=== PATIENT | male | born 1960 | race Caucasian/White ===

== ENCOUNTER → 2016-08-30 | Outpatient (CLI) | payer SELFPAY ==
[~2016-08-30] MED LIST: AMLO5TAB2; AMOX1TAB63 PO; GLIM2TAB PO; HCTZ12.5T PO; HYDR-1231 PO; HYDR-707 PO; HYDR1TAB PO; HYDR1TAB66 PO; LISI10TA PO; MTF500T PO; NAPR-243 PO; SMV20T PO; TRM50T PO
[2016-08-30 06:31] LABS: MEAN PLATELET VOLUME 9.7 FL (7.4-10.4); RED BLOOD COUNT 4.31 10^6/uL (4.35-5.85); RED CELL DISTRIBUTION WIDTH 13.9 % (10.0-14.5); WHITE BLOOD COUNT 6.4 10^3/uL (4.3-11.0)
[2016-08-30 06:55] LABS: ALANINE AMINOTRANSFERASE 66 U/L (0-55); ALBUMIN 4.6 GM/DL (3.2-4.5); ANION GAP 14 MMOL/L (5-14); ASPARTATE AMINO TRANSFERASE 49 U/L (5-34); BILIRUBIN,TOTAL 0.6 MG/DL (0.1-1.0); BLOOD UREA NITROGEN 19 MG/DL (7-18); BUN/CREATININE RATIO 17; CALCIUM 9.3 MG/DL (8.5-10.1); CARBON DIOXIDE 21 MMOL/L (21-32); CHLORIDE 104 MMOL/L (98-107); CHOLESTEROL 271 MG/DL (< 200); CREATININE SERUM 1.13 MG/DL (0.60-1.30); DIRECT LDL 107 MG/DL (1-129); GFR ESTIMATED > 60; GLUCOSE 220 MG/DL (70-105); POTASSIUM 4.2 MMOL/L (3.6-5.0); SODIUM 139 MMOL/L (135-145); TOTAL PROTEIN 7.7 GM/DL (6.4-8.2); TRIGLYCERIDES 522 MG/DL (<150); VLDL CHOLESTEROL 104 MG/DL (5-40)
[2016-08-30 13:53] LABS: BILIRUBIN,URINE NEGATIVE (NEGATIVE); KETONES,URINE NEGATIVE (NEGATIVE); LEUKOCYTE ESTERASE ,URINE 1+ (NEGATIVE); NITRITE,URINE NEGATIVE (NEGATIVE); PH,URINE 5 (5-9); PROTEIN,URINE 4+ (NEGATIVE); UROBILINOGEN,URINE NORMAL (NORMAL)
[2016-08-30 14:00] LABS: SQUAMOUS EPITHELIAL CELL,UR RARE /HPF
== END ==
LOC: LAB 06:06
PROVIDERS: ATTEND Family Medicine
DX: E11.9 Type 2 diabetes mellitus without complications (principal)
CPT/HCPCS: 36415; 80053; 80061; 81000; 83036; 85027

== ENCOUNTER → 2016-09-05 | Outpatient (CLI) | payer SELFPAY ==
[2016-09-05 06:52] LABS: ALBUMIN 4.7 GM/DL (3.2-4.5); BILIRUBIN,DIRECT 0.2 MG/DL (0.0-0.3); BILIRUBIN,INDIRECT 0.3 MG/DL; BILIRUBIN,TOTAL 0.5 MG/DL (0.1-1.0); TOTAL PROTEIN 7.8 GM/DL (6.4-8.2)
== END ==
LOC: LAB 06:02
PROVIDERS: ATTEND Family Medicine
DX: R74.8 Abnormal levels of other serum enzymes (principal)
CPT/HCPCS: 36415; 80076

== ENCOUNTER → 2017-07-04 | Outpatient (CLI) | payer SELFPAY | LOC: LAB 06:25 | PROVIDERS: ATTEND Family Medicine | DX: E11.9 Type 2 diabetes mellitus without complications (principal) | CPT/HCPCS: 36415; 83036 ==

== ENCOUNTER 2017-10-29 19:46 | Emergency (ER) | payer SELFPAY ==
[~2017-10-29] VITALS: Ht 172.7 cm; Wt 81.6 kg
[2017-10-29 20:47] LABS: BASOPHILS % (AUTO) 1 % (0-10); EOSINOPHILS # (AUTO) 0.2 10^3/uL (0.0-0.3); EOSINOPHILS % (AUTO) 3 % (0-10); HEMATOCRIT 33 % (40-54); LYMPHOCYTES % (AUTO) 31 % (12-44); MEAN CORPUSCULAR HEMOGLOBIN 31 PG (25-34); MEAN CORPUSCULAR HGB CONC 36 G/DL (32-36); MEAN CORPUSCULAR VOLUME 85 FL (80-99); MEAN PLATELET VOLUME 9.6 FL (7.4-10.4); MONOCYTES # (AUTO) 0.6 X 10^3 (0.0-1.0); MONOCYTES % (AUTO) 9 % (0-12); NEUTROPHILS # (AUTO) 3.7 X 10^3 (1.8-7.8); NEUTROPHILS % (AUTO) 57 % (42-75); PLATELET COUNT 187 10^3/uL (130-400); RED BLOOD COUNT 3.91 10^6/uL (4.35-5.85); RED CELL DISTRIBUTION WIDTH 13.8 % (10.0-14.5); WHITE BLOOD COUNT 6.5 10^3/uL (4.3-11.0)
[2017-10-29 21:05] LABS: ALANINE AMINOTRANSFERASE 62 U/L (0-55); ALBUMIN 4.7 GM/DL (3.2-4.5); ALKALINE PHOSPHATASE 104 U/L (40-136); BILIRUBIN,TOTAL 0.2 MG/DL (0.1-1.0); BUN/CREATININE RATIO 14; CALCIUM 9.4 MG/DL (8.5-10.1); CARBON DIOXIDE 20 MMOL/L (21-32); CHLORIDE 105 MMOL/L (98-107); CREATININE SERUM 1.07 MG/DL (0.60-1.30); GFR ESTIMATED > 60; GLUCOSE 258 MG/DL (70-105); POTASSIUM 4.4 MMOL/L (3.6-5.0); SODIUM 138 MMOL/L (135-145); TOTAL PROTEIN 7.6 GM/DL (6.4-8.2)
--- NOTE | 2017-10-29 21:06 | ED Integumentary General ---
General Chief Complaint: Skin/Wound Problems Stated Complaint: HAS PACEMAKER, AREA HURT,RED AND HURTS Nursing Triage Note: pt states last two weeks pacemaker site red/swelling. states pain worsening. History of Present Illness Date Seen by Provider: Oct 29, 2017 Time Seen by Provider: 20:05 Initial Comments The patient is a 57-year-old male who presents to the emergency room with complaints of redness and swelling to his pacemaker on his left chest wall for the past 2 weeks. He states that there pain and redness has gotten worse over the past few days. He also reports that he's had the pacemaker in place for 20 years and has this from time to time and requires an antibiotic due to infection of the skin. He reports that 2 weeks ago he slept wrong and slept with a lot of pressure on his pacemaker. Denies any dizziness, lightheadedness, irregular heartbeats, or chest pain. His primary care provider is Dr. Yap. Timing/Duration: other Location: torso (left chest wall) Associated Symptoms: other (erythema to) Allergies and Home Medications Allergies Coded Allergies: Aspirin (Verified Allergy, Unknown, 12/15/05) ibuprofen (Verified Allergy, Unknown, 12/15/05) morphine (Verified Allergy, Unknown, 12/15/05) Home Medications Cephalexin 500 Mg Capsule, 500 MG PO BID Prescribed by: LM PRICE on 10/29/17 2111 Hydrocodone Bit/Acetaminophen 1 Tab Tablet, 1 TAB PO Q6H PRN for PAIN Prescribed by: VALERY HEARD on 04/06/13 1501 Lisinopril 10 Mg Tablet, 10 MG PO DAILY, (Reported) Metformin Hcl 500 Mg Tablet, 1,000 MG PO BID WITH MEALS, (Reported) Simvastatin 20 Mg Tab, 20 MG PO HS, (Reported) Patient Home Medication List Home Medication List Reviewed: Yes Review of Systems Review of Systems Constitutional: see HPI; No chills, No fever Skin: see HPI, change in color (redness to skin on left chest wall) Past Qxrwtez-Fqxnmv-Gofqhn Hx Past Med/Social Hx: Reviewed Nursing Past Med/Soc Hx Patient Social History Alcohol Use: Denies Use Recreational Drug Use: No Smoking Status: Never a Smoker 2nd Hand Smoke Exposure: No Recent Foreign Travel: No Contact w/Someone Who Travel: No Recent Infectious Disease Expo: No Recent Hopitalizations: Yes Physical Abuse: No Sexual Abuse: No Mistreated: No Fear: No Immunizations Up To Date Date of Pneumonia Vaccine: Apr 06, 2010 Date of Influenza Vaccine: Mar 11, 2013 Past Medical History Surgeries: Yes (HERNIA) Respiratory: No Cardiac: Yes (PACEMAKER) Neurological: Yes Reproductive Disorders: No Kidney Stones Gastrointestinal: Yes Endocrine: Yes Diabetes, Non-Insulin dep Psychosocial: No Blood Disorders: Yes Family Medical History Reviewed Nursing Family Hx Physical Exam Vital Signs Vital Signs - First Documented 10/29/17 20:05 Temp 98.4 Pulse 96 Resp 16 B/P (MAP) 149/96 (113) Pulse Ox 98 O2 Delivery Room Air Capillary Refill : Greater Than 3 Seconds General Appearance: WD/WN, no apparent distress Neck: non-tender, full range of motion, supple, normal inspection Cardiovascular: normal peripheral pulses, regular rate, rhythm, no edema, no gallop, no JVD, no murmur Respiratory: chest non-tender, lungs clear, normal breath sounds, no respiratory distress, no accessory muscle use Neurologic/Psychiatric: alert, normal mood/affect, oriented x 3 Skin Problem Character: erythema (erythema and tenderness to the skin around the pacemaker incision on his left upper chest wall.) Progress/Results/Core Measures Results/Orders Lab Results Laboratory Tests Test 10/29/17 20:20 Range/Units White Blood Count 6.5 4.3-11.0 10^3/uL Red Blood Count 3.91 L 4.35-5.85 10^6/uL Hemoglobin 12.0 L 13.3-17.7 G/DL Hematocrit 33 L 40-54 % Mean Corpuscular Volume 85 80-99 FL Mean Corpuscular Hemoglobin 31 25-34 PG Mean Corpuscular Hemoglobin Concent 36 32-36 G/DL Red Cell Distribution Width 13.8 10.0-14.5 % Platelet Count 187 130-400 10^3/uL Mean Platelet Volume 9.6 7.4-10.4 FL Neutrophils (%) (Auto) 57 42-75 % Lymphocytes (%) (Auto) 31 12-44 % Monocytes (%) (Auto) 9 0-12 % Eosinophils (%) (Auto) 3 0-10 % Basophils (%) (Auto) 1 0-10 % Neutrophils # (Auto) 3.7 1.8-7.8 X 10^3 Lymphocytes # (Auto) 2.0 1.0-4.0 X 10^3 Monocytes # (Auto) 0.6 0.0-1.0 X 10^3 Eosinophils # (Auto) 0.2 0.0-0.3 10^3/uL Basophils # (Auto) 0.0 0.0-0.1 10^3/uL Sodium Level 138 135-145 MMOL/L Potassium Level 4.4 3.6-5.0 MMOL/L Chloride Level 105 98-107 MMOL/L Carbon Dioxide Level 20 L 21-32 MMOL/L Anion Gap 13 5-14 MMOL/L Blood Urea Nitrogen 15 7-18 MG/DL Creatinine 1.07 0.60-1.30 MG/DL Estimat Glomerular Filtration Rate > 60 BUN/Creatinine Ratio 14 Glucose Level 258 H 70-105 MG/DL Calcium Level 9.4 8.5-10.1 MG/DL Corrected Calcium 8.5-10.1 MG/DL Total Bilirubin 0.2 0.1-1.0 MG/DL Aspartate Amino Transf (AST/SGOT) 40 H 5-34 U/L Alanine Aminotransferase (ALT/SGPT) 62 H 0-55 U/L Alkaline Phosphatase 104 40-136 U/L Total Protein 7.6 6.4-8.2 GM/DL Albumin 4.7 H 3.2-4.5 GM/DL My Orders Orders - LM PRICE Cbc With Automated Diff (10/29/17 20:11) Comprehensive Metabolic Panel (10/29/17 20:11) Cephalexin Capsule (Keflex Capsule) (10/29/17 21:15) Medications Given in ED Current Medications Medications Dose Ordered Sig/Melo Route Start Time Stop Time Status Last Admin Dose Admin Cephalexin HCl 500 mg ONCE ONCE PO 10/29/17 21:15 10/29/17 21:16 DC 10/29/17 21:24 500 MG Vital Signs/I&O 10/29/17 20:05 Temp 98.4 Pulse 96 Resp 16 B/P (MAP) 149/96 (113) Pulse Ox 98 O2 Delivery Room Air Blood Pressure Mean: 113 Progress Progress Note : Time: 21:00 Progress Note I have seen and evaluated the patient. I have informed him of normal laboratory findings. Given his normal white blood cell count I believe his infection is localized at this time. I will be sending home with a prescription for outpatient antibiotics and close follow-up with Dr. Das. He agrees with plan of care, return precautions were given. Departure Impression Primary Impression: Cellulitis Disposition: 01 HOME, SELF-CARE Condition: Stable/Unchanged Departure-Patient Inst. Decision time for Depature: 21:09 Referrals: VERA DAS DO (PCP/Family) Primary Care Physician Patient Instructions: Cellulitis (Skin Infection), Adult (DC) Add. Discharge Instructions: Take medication as directed. Follow-up with Dr. Das within 1 week for recheck. Return back to the emergency room for any worsening symptoms or concerns as needed. All discharge instructions reviewed with patient and/or family. Voiced understanding. Scripts Cephalexin (Keflex) 500 Mg Capsule 500 MG PO BID for 10 Days, #20 CAP Prov: LM PRICE 10/29/17 LM PRICE Oct 29, 2017 21:05
[2017-10-29] MEDS ORDERED: CEPH-507 PO (21:11)
[2017-10-29] MEDS ORDERED: CEPHALEXIN 250 MG (KEFLEX) CAP PO ONE (21:15)
[2017-10-29 21:35] VITALS: BP 149/96
== END 2017-10-29 21:38 | disposition home or self-care (01) ==
LOC: EDUNIT# 19:46 → ER 19:49
DX: L03.313 Cellulitis of chest wall (principal); E11.9 Type 2 diabetes mellitus without complications; Z88.6 Allergy status to analgesic agent; Z68.39 Body mass index [BMI] 39.0-39.9, adult; Z88.5 Allergy status to narcotic agent; Z79.84 Long term (current) use of oral hypoglycemic drugs; Z95.0 Presence of cardiac pacemaker; Z98.890 Other specified postprocedural states; Z87.442 Personal history of urinary calculi
CPT/HCPCS: 36415; 80053; 85025; 99282

== ENCOUNTER 2017-12-11 21:11 | Emergency (ER) | payer SELFPAY ==
[~2017-12-11] VITALS: Ht 170.2 cm; Wt 80.8 kg
[~2017-12-11 21:11] MED LIST changes: +CEPH-507 PO
[2017-12-11] MEDS ORDERED: GLIM2TAB PO (22:07)
--- NOTE | 2017-12-11 22:24 | ED Integumentary General ---
General Chief Complaint: Skin/Wound Problems Stated Complaint: PACE MAKER REMOVAL/WOUND VAC ALARM GOING OFF Nursing Triage Note: pt states he had a pacemaker removed because of infection, has a wound vac and is having trouble with the wound vac Source: patient Exam Limitations: no limitations History of Present Illness Date Seen by Provider: Dec 11, 2017 Time Seen by Provider: 22:00 Initial Comments The patient is a 57 year old male who presents to the emergency room with complaints of his wound vac alarming that there is a blockage. It is continuing to maintain suction and is not alarming on arrival to the emergency room. He has the wound vac due to infection of a pacmaker site. He has an appointment with wound care tomorrow morning. Denies pain. Timing/Duration: just prior to arrival Allergies and Home Medications Allergies Coded Allergies: Aspirin (Verified Allergy, Unknown, 12/15/05) ibuprofen (Verified Allergy, Unknown, 12/15/05) morphine (Verified Allergy, Unknown, 12/15/05) Home Medications Hydrocodone Bit/Acetaminophen 1 Tab Tablet, 1 TAB PO Q6H PRN for PAIN Prescribed by: VALERY HEARD on 04/06/13 1501 Lisinopril 10 Mg Tablet, 10 MG PO DAILY, (Reported) Metformin Hcl 500 Mg Tablet, 1,000 MG PO BID WITH MEALS, (Reported) Simvastatin 20 Mg Tab, 20 MG PO HS, (Reported) Patient Home Medication List Home Medication List Reviewed: Yes Review of Systems Review of Systems Constitutional: see HPI; No chills, No fever Skin: see HPI, other (left chest wall wound ) All Other Systems Reviewed Negative Unless Noted: Yes Past Uhwxlqc-Mhmkyg-Fprjah Hx Past Med/Social Hx: Reviewed Nursing Past Med/Soc Hx Patient Social History Alcohol Use: Denies Use Recreational Drug Use: No Smoking Status: Never a Smoker 2nd Hand Smoke Exposure: No Recent Foreign Travel: No Contact w/Someone Who Travel: No Recent Infectious Disease Expo: No Recent Hopitalizations: Yes Immunizations Up To Date Date of Pneumonia Vaccine: Apr 06, 2010 Date of Influenza Vaccine: Mar 11, 2013 Past Medical History Surgeries: Yes (HERNIA) Respiratory: No Cardiac: Yes (PACEMAKER) Neurological: Yes Reproductive Disorders: No Kidney Stones Gastrointestinal: Yes Endocrine: Yes Diabetes, Non-Insulin dep Psychosocial: No Blood Disorders: Yes Family Medical History Reviewed Nursing Family Hx Physical Exam Vital Signs Vital Signs - First Documented 12/11/17 12/11/17 21:51 22:35 Temp 98.0 Pulse 90 Resp 16 B/P (MAP) 128/77 (94) Pulse Ox 98 O2 Delivery Room Air Capillary Refill : Less Than 3 Seconds General Appearance: WD/WN, no apparent distress Cardiovascular: normal peripheral pulses, regular rate, rhythm, no edema, no gallop, no JVD, no murmur Respiratory: chest non-tender, lungs clear, normal breath sounds, no respiratory distress, no accessory muscle use Skin: normal color, warm/dry Skin Problem Location: torso (left chest wall) Skin Problem Character: other (wound vac is maintaining suctioning. ) Progress/Results/Core Measures Results/Orders Vital Signs/I&O 12/11/17 12/11/17 21:51 22:35 Temp 98.0 98.6 Pulse 90 77 Resp 16 20 B/P (MAP) 128/77 (94) 132/81 (98) Pulse Ox 98 O2 Delivery Room Air Blood Pressure Mean: 94 Departure Impression Primary Impression: Encounter for management of wound VAC Disposition: 01 HOME, SELF-CARE Condition: Stable/Unchanged Departure-Patient Inst. Decision time for Depature: 22:23 Referrals: VERA DAS DO (PCP) Primary Care Physician Patient Instructions: Surgical Wound (DC) Add. Discharge Instructions: Continue your home medications as previously prescribed. Keep your appointment tomorrow morning for management of wound VAC. Return back to the emergency room for any worsening symptoms or concerns as needed. All discharge instructions reviewed with patient and/or family. Voiced understanding. LM PRICE Dec 11, 2017 22:23
[2017-12-11 22:35] VITALS: BP 132/81
== END 2017-12-11 22:35 | disposition home or self-care (01) ==
LOC: EDUNIT# 21:11 → ER 21:14
DX: I97.89 Other postprocedural complications and disorders of the circulatory system, not elsewhere classified (principal); E11.9 Type 2 diabetes mellitus without complications; Z88.6 Allergy status to analgesic agent; Z88.5 Allergy status to narcotic agent; Z79.84 Long term (current) use of oral hypoglycemic drugs; Z87.19 Personal history of other diseases of the digestive system; Z95.0 Presence of cardiac pacemaker; Z87.442 Personal history of urinary calculi
CPT/HCPCS: 99282

== ENCOUNTER → 2018-03-06 | Outpatient (CLI) | payer SELFPAY | LOC: RAD 09:46 | PROVIDERS: ATTEND Internal Medicine | DX: M54.16 Radiculopathy, lumbar region (principal); Z53.8 Procedure and treatment not carried out for other reasons ==

== ENCOUNTER → 2018-04-03 | Outpatient (CLI) | payer OTHER ==
--- NOTE | 2018-04-03 10:14 | Diagnostic Imaging Report ---
INDICATION: Degenerative disc disease. COMPARISON: None FINDINGS: Frontal and lateral views of the lumbar spine were obtained. Alignment and vertebral heights are maintained. There is no fracture or destructive process. No significant degenerative disease is noted in the lumbar spine. Limited views of the abdomen demonstrate nonobstructive bowel gas pattern. IMPRESSION: 1. Unremarkable radiographic exam of the lumbar spine. Dictated by: Dictated on workstation # [id number]
--- NOTE | 2018-04-03 10:39 | Diagnostic Imaging Report ---
INDICATION: Osteoarthritis of the knee. COMPARISON: None. FINDINGS: Frontal and lateral radiographic views of the bilateral knees were obtained. There is no acute fracture or dislocation on either side. Joint spaces are maintained. Note is made of chondrocalcinosis on the right. There is no large joint effusion on either side. No unexpected radiopaque foreign bodies are seen. There is minimal calcified arterial sclerosis. IMPRESSION: 1. No acute fracture or dislocation of either knee. 2. Chondrocalcinosis. Findings can be seen on the basis of underlying osteoarthritis, but may also be seen with CPPD. 3. Otherwise, no significant osteoarthritis by radiographic standards. Dictated by: Dictated on workstation # [id number]
== END ==
LOC: RAD 09:18
PROVIDERS: ATTEND Radiology Therapeutic Radiology
DX: Z02.71 Encounter for disability determination (principal); M17.0 Bilateral primary osteoarthritis of knee; M11.261 Other chondrocalcinosis, right knee; M51.36 Other intervertebral disc degeneration, lumbar region
CPT/HCPCS: 72100

== ENCOUNTER 2018-10-03 05:23 | Emergency (ER) | payer MEDICAID ==
[~2018-10-03] VITALS: Ht 170.2 cm; Wt 84.8 kg
--- NOTE | 2018-10-03 06:26 | ED EENT ---
History of Present Illness General Chief Complaint: Foreign Body Stated Complaint: BUG IN LEFT EAR Nursing Triage Note: Reports upon rise this am, he felt "crawling" sesnation in lt ear. Reports to have irrigated lt ear with water in an attempt to flush out insect. Pt states, "that just made it crawl around even more." Source: patient Exam Limitations: no limitations History of Present Illness Date Seen by Provider: Oct 03, 2018 Time Seen by Provider: 06:15 Initial Comments PT ARRIVES VIA POV FROM HOME C/O BUG IN LEFT EAR ON WAKING AT 0430 THIS AM TRIED TO FLUSH IT OUT WITH WATER, BUT NO RESULTS STATES IT DOES NOT FEEL LIKE IT IS CRAWLING ANYMORE. PCP: DR. DAS Allergies and Home Medications Allergies Coded Allergies: Aspirin (Verified Allergy, Unknown, 12/15/05) ibuprofen (Verified Allergy, Unknown, 12/15/05) morphine (Verified Allergy, Unknown, 12/15/05) Home Medications Hydrocodone Bit/Acetaminophen 1 Tab Tablet, 1 TAB PO Q6H PRN for PAIN Prescribed by: VALERY HEARD on 04/06/13 1501 Lisinopril 10 Mg Tablet, 10 MG PO DAILY, (Reported) Metformin Hcl 500 Mg Tablet, 1,000 MG PO BID WITH MEALS, (Reported) Simvastatin 20 Mg Tab, 20 MG PO HS, (Reported) Patient Home Medication List Home Medication List Reviewed: Yes Review of Systems Review of Systems Constitutional: no symptoms reported; No dizziness Ears: See HPI Past Pirurti-Xtiwlw-Acnzwd Hx Patient Social History Alcohol Use: Denies Use Recreational Drug Use: No Smoking Status: Never a Smoker 2nd Hand Smoke Exposure: No Recent Foreign Travel: No Contact w/Someone Who Travel: No Recent Infectious Disease Expo: No Recent Hopitalizations: Yes Immunizations Up To Date Date of Pneumonia Vaccine: Apr 06, 2010 Date of Influenza Vaccine: Mar 11, 2013 Past Medical History Surgeries: Yes (HERNIA) Abdominal, Pacemaker Respiratory: No Cardiac: Yes (PACEMAKER) Irregular Heartbeat Neurological: Yes Reproductive Disorders: No Genitourinary: Yes Kidney Stones Gastrointestinal: Yes Gastroesophageal Reflux Musculoskeletal: No Endocrine: Yes Diabetes, Non-Insulin dep HEENT: No Cancer: No Psychosocial: No Integumentary: No Blood Disorders: Yes Physical Exam Vital Signs Vital Signs - First Documented 10/03/18 06:00 Temp 96.9 Pulse 86 Resp 17 B/P (MAP) 131/92 (105) Pulse Ox 95 O2 Delivery Room Air Height, Weight, BMI Height: 5'7.00" Weight: 187lbs. 0.5oz. 84.202519ob; 29.75 BMI Method:Stated General Appearance: WD/WN, no apparent distress Ears: left ear other (LEFT EAR WITH LARGE BUG ) Procedures/Interventions Ear : Ear Location: Left Foreign Body Removal: FB in the Ear Canal (BUG) Use of: Forceps Progress/Conclusion BUG REMOVED INTACT WITHOUT ANY DIFFICULTY. TM IMPACTED WITH CERUMEN, OTHERWISE CLEAR AFTER REMOVAL. Progress/Results/Core Measures Results/Orders Vital Signs/I&O 10/03/18 10/03/18 06:00 06:41 Temp 96.9 96.9 Pulse 86 95 Resp 17 17 B/P (MAP) 131/92 (105) 120/87 (98) Pulse Ox 95 96 O2 Delivery Room Air Room Air Blood Pressure Mean: 105 Departure Impression Primary Impression: removal of bug from left ear Disposition: 01 HOME, SELF-CARE Condition: Stable Departure-Patient Inst. Referrals: VERA DAS DO (PCP/Family) Primary Care Physician Patient Instructions: Foreign Body in Ear, Child (DC) Add. Discharge Instructions: FOLLOW UP WITH YOUR DR NEEDED All discharge instructions reviewed with patient and/or family. Voiced understanding. COLLEEN PAZ DO Oct 03, 2018 06:26
[2018-10-03 06:41] VITALS: BP 120/87
== END 2018-10-03 06:41 | disposition home or self-care (01) ==
LOC: EDUNIT# 05:23 → ER 05:27
DX: S00.452A Superficial foreign body of left ear, initial encounter (principal); K21.9 Gastro-esophageal reflux disease without esophagitis; E11.9 Type 2 diabetes mellitus without complications; Z87.442 Personal history of urinary calculi; Z88.6 Allergy status to analgesic agent; Z88.5 Allergy status to narcotic agent; Z95.0 Presence of cardiac pacemaker; W57.XXXA Bitten or stung by nonvenomous insect and other nonvenomous arthropods, initial encounter
CPT/HCPCS: 99282

== ENCOUNTER → 2018-12-19 | Outpatient (CLI) | payer MEDICAID | LOC: LAB 11:05 | PROVIDERS: ATTEND Family Medicine | DX: Z01.89 Encounter for other specified special examinations (principal) | CPT/HCPCS: 36415; 83036 ==

== ENCOUNTER 2019-04-01 05:35 | Outpatient (CLI) | payer MEDICAID ==
[~2019-04-01] VITALS: Ht 170 cm; Wt 79.5 kg
[~2019-04-01 05:35] MED LIST changes: +GLIM2TAB2 PO
[2019-04-01] MEDS ORDERED: GLIM4TAB3 PO (11:40)
[2019-04-01] MEDS ORDERED: EMPA25TA PO (11:40)
[2019-04-01] MEDS ORDERED: METF-399 PO (11:40)
[2019-04-01] MEDS ORDERED: LISI-552 PO (11:40)
== END 2019-04-01 11:45 | disposition home or self-care (01) ==
LOC: PREOP 05:35
PROVIDERS: ATTEND Surgery
DX: Z01.818 Encounter for other preprocedural examination (principal)

== ENCOUNTER 2019-07-11 09:05 | Outpatient (RCR) | payer MEDICAID ==
[~2019-07-11] VITALS: Ht 170 cm; Wt 79.5 kg
[~2019-07-11 09:05] MED LIST changes: +EMPA25TA PO; -GLIM2TAB2 PO; +GLIM2TAB4 PO; +GLIM4TAB5 PO; +LISI-552 PO; +METF-399 PO; +PANT40TA2 PO; +SUCR1TAB36 PO
== END 2019-07-11 15:36 | disposition home or self-care (01) ==
LOC: PREOP 09:05
PROVIDERS: ATTEND Surgery
DX: Z01.818 Encounter for other preprocedural examination (principal); Z11.59 Encounter for screening for other viral diseases
CPT/HCPCS: 87635

== ENCOUNTER 2019-12-20 14:09 | Inpatient (IN) | payer MEDICAID ==
[~2019-12-20] VITALS: Ht 176.8 cm; Wt 84.2 kg
[~2019-12-20 14:09] MED LIST changes: -ACET-2650 PO; -CALC10009 PO; -CETI10TA49 PO; -DEXT1TAB3 PO; -FLUT9.9S NS; -GUAI-836 PO; -LISI1TAB46 PO
[2019-12-20] MEDS ORDERED: NS IV 1000 ML 1,000 ML IV SCH (14:15)
[2019-12-20] MEDS ORDERED: fentaNYL INJECTION 100 MCG/2 ML AMP IVP ONE (14:15)
[2019-12-20 14:34] LABS: BASOPHILS # (AUTO) 0.1 10^3/uL (0.0-0.1); BASOPHILS % (AUTO) 1 % (0-10); EOSINOPHILS # (AUTO) 0.2 10^3/uL (0.0-0.3); EOSINOPHILS % (AUTO) 2 % (0-10); HEMATOCRIT 36 % (40-54); HEMOGLOBIN 15.2 g/dL (13.3-17.7); LYMPHOCYTES # (AUTO) 2.3 10^3/uL (1.0-4.0); LYMPHOCYTES % (AUTO) 26 % (12-44); MEAN CORPUSCULAR HEMOGLOBIN 36 pg (25-34); MEAN CORPUSCULAR HGB CONC 42 g/dL (32-36); MEAN CORPUSCULAR VOLUME 86 fL (80-99); MEAN PLATELET VOLUME 8.9 fL (9.0-12.2); MONOCYTES # (AUTO) 0.8 10^3/uL (0.0-1.0); MONOCYTES % (AUTO) 9 % (0-12); NEUTROPHILS # (AUTO) 5.5 10^3/uL (1.8-7.8); NEUTROPHILS % (AUTO) 62 % (42-75); PLATELET COUNT 314 10^3/uL (130-400); WHITE BLOOD COUNT 8.8 10^3/uL (4.3-11.0)
--- NOTE | 2019-12-20 14:37 | ED General ---
General Stated Complaint: INSULIN Source of Information: Patient Exam Limitations: No Limitations History of Present Illness Date Seen by Provider: Dec 20, 2019 Time Seen by Provider: 14:26 Initial Comments By private vehicle from Dr. Das's office with reports of feeling poorly for quite a while and abnormal labs. He had labs drawn this morning which showed a blood glucose of 400, sodium of 126, normal kidney function. Also had a triglyceride count of 8249, total cholesterol of 1057. Patient is concerned about insulin cost. He states "if this is something I will need permanently once you start it then just dont start it because I cant afford it". he does also complain of some right upper quadrant abdominal pain. Timing/Duration: Getting Worse, Other Severity: Moderate Associated Systoms: No Nausea/Vomiting Allergies and Home Medications Allergies Coded Allergies: aspirin (Verified Allergy, Severe, HX STOMACHS ULCER, 07/09/19) ibuprofen (Verified Allergy, Intermediate, HX STOMACH ULCERS, 07/09/19) morphine (Verified Allergy, Unknown, 07/09/19) Home Medications Empagliflozin 25 Mg Tablet, 25 MG PO DAILY, (Reported) Glimepiride 4 Mg Tablet, 4 MG PO DAILY, (Reported) Lisinopril 20 Mg Tablet, 20 MG PO DAILY, (Reported) Metformin HCl 1,000 Mg Tablet, 1,000 MG PO BID, (Reported) Pantoprazole Sodium 40 Mg Tablet.dr, 40 MG PO DAILY Prescribed by: TAWNY COOL on 04/08/19914 Sucralfate 1 Gm Tablet, 1 GM PO QIDACHS Prescribed by: TAWNY COOL on 04/08/19914 Patient Home Medication List Home Medication List Reviewed: Yes Review of Systems Review of Systems Constitutional: see HPI, weakness EENTM: see HPI Respiratory: no symptoms reported Cardiovascular: no symptoms reported Gastrointestinal: abdominal pain Genitourinary: no symptoms reported Musculoskeletal: no symptoms reported Skin: no symptoms reported Psychiatric/Neurological: No Symptoms Reported Hematologic/Lymphatic: No Symptoms Reported Immunological/Allergic: no symptoms reported Past Qrcalyq-Tebeaf-Lrjrng Hx Patient Social History 2nd Hand Smoke Exposure: No Recent Foreign Travel: No Contact w/Someone Who Travel: No Recent Hopitalizations: No Immunizations Up To Date Date of Pneumonia Vaccine: Nov 19, 2018 Date of Influenza Vaccine: Nov 19, 2018 Seasonal Allergies Seasonal Allergies: Yes Past Medical History Surgeries: Yes (HERNIA, PACEMAKER REMOVAL) Abdominal, Pacemaker Respiratory: No Cardiac: Yes Hypertension, Irregular Heartbeat Neurological: Yes Headaches /Migraines Reproductive Disorders: No Sexually Transmitted Disease: No HIV/AIDS: No Genitourinary: Yes Kidney Stones Gastrointestinal: Yes Gastroesophageal Reflux, Chronic Diarrhea Musculoskeletal: Yes Degenerate Disk Disease, Arthritis, Chronic Back Pain Endocrine: Yes Diabetes, Non-Insulin dep HEENT: Yes (GLASSES, BLIND IN RIGHT EYE, DENTURES) Loss of Vision: Right Hearing Impairment: Denies Cancer: No Psychosocial: No Integumentary: No Blood Disorders: No Adverse Reaction/Blood Tranf: No (N/A) Physical Exam Vital Signs Vital Signs - First Documented 12/20/19 14:30 Temp 35.8 Pulse 117 Resp 20 B/P (MAP) 159/89 (112) Pulse Ox 97 Capillary Refill : Height, Weight, BMI Height: 5'7.00" Weight: 187lbs. 0.5oz. 84.020026sn; 171.92 BMI Method:Stated General Appearance: No Apparent Distress, WD/WN, Other (Alert and oriented, very pleasant gentleman, understandably concerned about the cost of insulin therapy.) Eyes: Bilateral Eye Normal Inspection, Bilateral Eye PERRL, Bilateral Eye EOMI Neck: Full Range of Motion, Normal Inspection Respiratory: No Accessory Muscle Use, No Respiratory Distress Cardiovascular: Normal Peripheral Pulses, Tachycardia Gastrointestinal: Normal Bowel Sounds, Non Tender, Soft Extremity: Normal Capillary Refill, Normal Inspection Neurologic/Psychiatric: Alert, Oriented x3 Skin: Normal Color, Warm/Dry Progress/Results/Core Measures Suspected Sepsis SIRS Temperature: Pulse: Respiratory Rate: Laboratory Tests 12/20/19 14:25: White Blood Count 8.8 Blood Pressure / Mean: Laboratory Tests 12/20/19 14:25: Creatinine 1.36H, Platelet Count 314, Total Bilirubin 0.4 Results/Orders Lab Results Laboratory Tests Test 12/20/19 14:25 Range/Units White Blood Count 8.8 4.3-11.0 10^3/uL Red Blood Count 4.21 L 4.30-5.52 10^6/uL Hemoglobin 15.2 13.3-17.7 g/dL Hematocrit 36 L 40-54 % Mean Corpuscular Volume 86 80-99 fL Mean Corpuscular Hemoglobin 36 H 25-34 pg Mean Corpuscular Hemoglobin Concent 42 H 32-36 g/dL Red Cell Distribution Width 14.9 H 10.0-14.5 % Platelet Count 314 130-400 10^3/uL Mean Platelet Volume 8.9 L 9.0-12.2 fL Immature Granulocyte % (Auto) 1 % Neutrophils (%) (Auto) 62 42-75 % Lymphocytes (%) (Auto) 26 12-44 % Monocytes (%) (Auto) 9 0-12 % Eosinophils (%) (Auto) 2 0-10 % Basophils (%) (Auto) 1 0-10 % Neutrophils # (Auto) 5.5 1.8-7.8 10^3/uL Lymphocytes # (Auto) 2.3 1.0-4.0 10^3/uL Monocytes # (Auto) 0.8 0.0-1.0 10^3/uL Eosinophils # (Auto) 0.2 0.0-0.3 10^3/uL Basophils # (Auto) 0.1 0.0-0.1 10^3/uL Immature Granulocyte # (Auto) 0.1 0.0-0.1 10^3/uL Sodium Level 123 *L 135-145 MMOL/L Potassium Level 4.2 3.6-5.0 MMOL/L Chloride Level 87 L 98-107 MMOL/L Carbon Dioxide Level 17 L 21-32 MMOL/L Anion Gap 19 H 5-14 MMOL/L Blood Urea Nitrogen 13 7-18 MG/DL Creatinine 1.36 H 0.60-1.30 MG/DL Estimat Glomerular Filtration Rate 53 BUN/Creatinine Ratio 10 Glucose Level 451 *H 70-105 MG/DL Calcium Level 9.8 8.5-10.1 MG/DL Corrected Calcium 8.5-10.1 MG/DL Total Bilirubin 0.4 0.1-1.0 MG/DL Aspartate Amino Transf (AST/SGOT) 44 H 5-34 U/L Alanine Aminotransferase (ALT/SGPT) 28 0-55 U/L Alkaline Phosphatase 99 40-136 U/L Troponin I < 0.028 <0.028 NG/ML Total Protein 12.9 H 6.4-8.2 GM/DL Albumin 4.7 H 3.2-4.5 GM/DL Triglycerides Level 8088 H <150 MG/DL Cholesterol Level 1033 H < 200 MG/DL LDL Cholesterol Direct 126 1-129 MG/DL VLDL Cholesterol 5-40 MG/DL HDL Cholesterol 24 L 40-60 MG/DL Lipase 65 8-78 U/L Beta-Hydroxybutyrate (Chem panel) 0.43 H 0.00-0.27 MMOL/L My Orders Orders - VALERY HEARD APRN Cbc With Automated Diff (12/20/19 14:15) Comprehensive Metabolic Panel (12/20/19 14:15) Ua Culture If Indicated (12/20/19 14:15) Beta Hydroxybutyrate (12/20/19 14:15) Ed Iv/Invasive Line Start (12/20/19 14:15) Lipase (12/20/19 14:15) Lipid Panel (12/20/19 14:15) Ekg Tracing (12/20/19 14:15) Troponin I (12/20/19 14:15) Ed Iv/Invasive Line Start (12/20/19 14:15) Ns Iv 1000 Ml (Sodium Chloride 0.9%) (12/20/19 14:15) Fentanyl Injection (Sublimaze Injection (12/20/19 14:15) Us Gallbladder [id number] (12/20/19 14:15) Accucheck Stat ONCE (12/20/19 14:15) Electrical Assembly Technician Consult (12/20/19 14:15) Medications Given in ED Current Medications Medications Dose Ordered Sig/Melo Route Start Time Stop Time Status Last Admin Dose Admin Fentanyl Citrate 50 mcg ONCE ONCE IVP 12/20/19 14:15 12/20/19 14:22 DC 12/20/19 14:39 50 MCG Vital Signs/I&O 12/20/19 14:30 Temp 35.8 Pulse 117 Resp 20 B/P (MAP) 159/89 (112) Pulse Ox 97 Capillary Refill : Diagnostic Imaging Diagonstic Imaging: Ultrasound Comments NAME: CAMPBELLANGELLA Clem [facility] REC#: [id number] PT STATUS: REG ER : 1960 PHYSICIAN: VALERY HEARD APRN ADMIT DATE: 12/20/19/ER Draft Date of Exam:12/20/19 US GALLBLADDER [id number] PROCEDURE: US Gallbladder. TECHNIQUE: Multiple real-time grayscale images were obtained over the right upper quadrant in various projections. INDICATION: Right upper quadrant pain. The liver is enlarged at 23 cm. No discrete liver mass is identified. The portal vein is patent and shows normal direction of flow. Gallbladder is without stones or sludge. No wall thickening or biliary ductal dilatation is seen. The visualized pancreas is unremarkable. Aorta is nonaneurysmal. Right kidney does contain approximately a 17 mm stone. No hydronephrosis is identified. There is no ascites. IMPRESSION: 1. Hepatomegaly. 2. No evidence of cholelithiasis or acute cholecystitis. 3. Nonobstructing right renal calculus. Dictated on workstation # [id number] Dict: 12/20/19 1557 Trans: 12/20/19 1601 [facility] [id number] Interpreted by: GUI DIXON MD Electronically signed by: Departure Communication (Admissions) [id number]-Complains of some right upper quadrant abdominal pain. I will obtain an ultrasound of the gallbladder. Given the hyper triglyceridemia I will go ahead and start insulin drip as well as start him on fenofibrate and omega-3 fatty acid. Impression Primary Impression: Hyperlipidemia Additional Impression: Hyperglycemia Disposition: ADMITTED INPATIENT Condition: Stable Admissions Decision to Admit Reason: Admit from ER (General) Decision to Admit/Date: Dec 20, 2019 Time/Decision to Admit Time: 14:36 Departure-Patient Inst. Referrals: VERA DAS DO (PCP/Family) Primary Care Physician VALERY HEARD APRN Dec 20, 2019 14:37
[2019-12-20 14:47] LABS: ALBUMIN 4.7 GM/DL (3.2-4.5); CHLORIDE 87 MMOL/L (98-107); POTASSIUM 4.2 MMOL/L (3.6-5.0)
[2019-12-20 14:48] LABS: CALCIUM 9.8 MG/DL (8.5-10.1)
[2019-12-20 14:50] LABS: TOTAL PROTEIN 12.9 GM/DL (6.4-8.2)
[2019-12-20 14:51] LABS: CARBON DIOXIDE 17 MMOL/L (21-32)
[2019-12-20 14:52] LABS: BILIRUBIN,TOTAL 0.4 MG/DL (0.1-1.0)
[2019-12-20 14:54] LABS: CREATININE SERUM 1.36 MG/DL (0.60-1.30); GFR ESTIMATED 53
[2019-12-20 14:55] LABS: BUN/CREATININE RATIO 10
[2019-12-20 14:56] LABS: HDL CHOLESTEROL 24 MG/DL (40-60)
[2019-12-20 14:57] LABS: LIPASE 65 U/L (8-78)
[2019-12-20 15:07] LABS: ALANINE AMINOTRANSFERASE 28 U/L (0-55); ALKALINE PHOSPHATASE 99 U/L (40-136); CHOLESTEROL 1033 MG/DL (< 200)
[2019-12-20 15:08] LABS: TRIGLYCERIDES 8088 MG/DL (<150)
[2019-12-20 15:11] LABS: GLUCOSE 451 MG/DL (70-105); SODIUM 123 MMOL/L (135-145)
--- NOTE | 2019-12-20 16:01 | Diagnostic Imaging Report ---
PROCEDURE: US Gallbladder. TECHNIQUE: Multiple real-time grayscale images were obtained over the right upper quadrant in various projections. INDICATION: Right upper quadrant pain. The liver is enlarged at 23 cm. No discrete liver mass is identified. The portal vein is patent and shows normal direction of flow. Gallbladder is without stones or sludge. No wall thickening or biliary ductal dilatation is seen. The visualized pancreas is unremarkable. Aorta is nonaneurysmal. Right kidney does contain approximately a 17 mm stone. No hydronephrosis is identified. There is no ascites. IMPRESSION: 1. Hepatomegaly. 2. No evidence of cholelithiasis or acute cholecystitis. 3. Nonobstructing right renal calculus. Dictated by: Dictated on workstation # [id number]
--- NOTE | 2019-12-20 17:33 | NUR ---
ATTEMPT TO CALL REPORT. ICU REPORTS WILL CALL BACK WHEN ROOM IS AVAILABLE.
[2019-12-20 17:54] LABS: BILIRUBIN,URINE NEGATIVE (NEGATIVE); CLARITY,URINE CLEAR; COLOR,URINE YELLOW; GLUCOSE, URINE (UA) 3+ (NEGATIVE); KETONES,URINE TRACE (NEGATIVE); LEUKOCYTE ESTERASE ,URINE NEGATIVE (NEGATIVE); NITRITE,URINE NEGATIVE (NEGATIVE); PROTEIN,URINE 1+ (NEGATIVE)
[2019-12-20 18:06] LABS: BACTERIA,URINE NEGATIVE /HPF; RBC,URINE 0-2 /HPF
[2019-12-20] MEDS ORDERED: CATHETER FLUSH 10 ML SYR IV PRN (19:00)
[2019-12-20] MEDS ORDERED: POTASSIUM CL 10MEQ/50ML IVPB 50 ML IV SCH (19:00)
[2019-12-20 19:05] LABS: HEMOGLOBIN 14.9 g/dL (13.3-17.7); MEAN PLATELET VOLUME 9.1 fL (9.0-12.2); WHITE BLOOD COUNT 7.9 10^3/uL (4.3-11.0)
[2019-12-20] MEDS: SUCRALFATE 1 GM (CARAFATE) TAB PO SCH (20:47)
[2019-12-20] MEDS: fentaNYL INJECTION 100 MCG/2 ML AMP IVP PRN (20:47)
[2019-12-20] MEDS: POTASSIUM CL 10MEQ/50ML IVPB 50 ML IV SCH ×2 (20:47→22:51)
[2019-12-20] MEDS: ENOXAPARIN 40 MG/0.4 ML (LOVENOX) SYR SC SCH (20:47)
[2019-12-20] MEDS: FENOFIBRATE 134 MG (LOFIBRA) CAPSULE PO SCH (20:48)
[2019-12-20] MEDS: 1/2 NS IV SOLUTION 1,000 ML IV SCH ×2 (20:48→23:45)
[2019-12-21] MEDS: POTASSIUM CL 10MEQ/50ML IVPB 50 ML IV SCH ×5 (00:29→21:19)
[2019-12-21] MEDS: fentaNYL INJECTION 100 MCG/2 ML AMP IVP PRN ×7 (00:30→23:30)
[2019-12-21] MEDS: D5 1/2 NS 1000 ML IV SOLUTION 1,000 ML IV SCH ×2 (00:31→04:40)
[2019-12-21 00:43] LABS: CHLORIDE 96 MMOL/L (98-107); POTASSIUM 3.3 MMOL/L (3.6-5.0); SODIUM 128 MMOL/L (135-145)
[2019-12-21 00:44] LABS: CALCIUM 8.9 MG/DL (8.5-10.1); GLUCOSE 251 MG/DL (70-105)
[2019-12-21 00:46] LABS: CARBON DIOXIDE 16 MMOL/L (21-32)
[2019-12-21 00:48] LABS: CREATININE SERUM 0.98 MG/DL (0.60-1.30); GFR ESTIMATED > 60
[2019-12-21 00:49] LABS: BUN/CREATININE RATIO 11
[2019-12-21] MEDS ORDERED: NITROGLYCERIN 0.4 MG SL TABS BTL 25'S SL PRN (02:15)
[2019-12-21] MEDS ORDERED: morphine INJ 4 MG/ML 1 ML (VIAL/SYRINGE) IV PRN (02:15)
[2019-12-21] MEDS ORDERED: ONDANSETRON 4 MG/2 ML (SDV) Z0FRAN IVP PRN (02:15)
[2019-12-21] MEDS: 1/2 NS IV SOLUTION 1,000 ML IV SCH (03:05)
[2019-12-21 04:15] LABS: CHLORIDE 97 MMOL/L (98-107); POTASSIUM 5.8 MMOL/L (3.6-5.0); SODIUM 126 MMOL/L (135-145)
[2019-12-21 04:16] LABS: CALCIUM 8.4 MG/DL (8.5-10.1)
[2019-12-21 04:17] LABS: GLUCOSE 215 MG/DL (70-105)
[2019-12-21 04:18] LABS: CARBON DIOXIDE 13 MMOL/L (21-32)
[2019-12-21 04:20] LABS: PHOSPHORUS 2.5 MG/DL (2.3-4.7)
[2019-12-21 04:21] LABS: CREATININE SERUM 0.88 MG/DL (0.60-1.30); GFR ESTIMATED > 60
[2019-12-21 04:22] LABS: BUN/CREATININE RATIO 13
[2019-12-21 04:23] LABS: MAGNESIUM 1.8 MG/DL (1.6-2.4)
[2019-12-21 04:29] LABS: TRIGLYCERIDES 5053 MG/DL (<150)
--- NOTE | 2019-12-21 04:42 | Pulmonary Consultation ---
History of Present Illness History of Present Illness Date Seen by Provider: Dec 21, 2019 Time Seen by Provider: 04:40 Date of Admission Allergies and Home Medications Allergies Coded Allergies: aspirin (Verified Allergy, Severe, HX STOMACHS ULCER, 07/09/19) ibuprofen (Verified Allergy, Intermediate, HX STOMACH ULCERS, 07/09/19) morphine (Verified Allergy, Unknown, 07/09/19) Home Medications Empagliflozin 25 Mg Tablet, 25 MG PO DAILY, (Reported) Glimepiride 4 Mg Tablet, 4 MG PO DAILY, (Reported) Lisinopril 20 Mg Tablet, 20 MG PO DAILY, (Reported) Metformin HCl 1,000 Mg Tablet, 1,000 MG PO BID, (Reported) Pantoprazole Sodium 40 Mg Tablet.dr, 40 MG PO DAILY Prescribed by: TAWNY COOL on 04/08/19914 Sucralfate 1 Gm Tablet, 1 GM PO QIDACHS Prescribed by: TAWNY COOL on 04/08/19 0915 Past Rhdpsmf-Jcyvom-Bxykwd Hx Patient Social History Alcohol Use: Denies Use Recreational Drug Use: No Smoking Status: Never a Smoker 2nd Hand Smoke Exposure: No Recent Foreign Travel: No Contact w/Someone Who Travel: No Recent Infectious Disease Expo: No Recent Hopitalizations: No Physical Abuse: No Sexual Abuse: No Mistreated: No Fear: No Immunizations Up To Date Date of Pneumonia Vaccine: Nov 19, 2018 Date of Influenza Vaccine: Nov 19, 2018 Seasonal Allergies Seasonal Allergies: Yes Past Medical History Surgeries: Yes (HERNIA, PACEMAKER REMOVAL) Abdominal, Orthopedic, Pacemaker Respiratory: No Cardiac: Yes Hypertension, Irregular Heartbeat Neurological: Yes Headaches /Migraines Reproductive Disorders: No Sexually Transmitted Disease: No HIV/AIDS: No Genitourinary: Yes Kidney Stones Gastrointestinal: Yes Gastroesophageal Reflux, Chronic Diarrhea Musculoskeletal: Yes Degenerate Disk Disease, Arthritis, Chronic Back Pain Endocrine: Yes Diabetes, Non-Insulin dep HEENT: Yes (GLASSES, BLIND IN RIGHT EYE, DENTURES) Loss of Vision: Right Hearing Impairment: Denies Cancer: No Psychosocial: No Integumentary: No Blood Disorders: No Adverse Reaction/Blood Tranf: No (N/A) Family Medical History Patient reports no known family medical history. Sepsis Event Evaluation Height, Weight, BMI Height: 5'7.00" Weight: 187lbs. 0.5oz. 84.135224te; 23.99 BMI Method:Stated Exam Exam Vital Signs Date Time Temp Pulse Resp B/P (MAP) Pulse Ox O2 Delivery O2 Flow Rate FiO2 12/21/19 04:32 36.0 86 17 129/82 96 Room Air 12/21/19 03:58 95 Room Air 12/21/19 01:00 91 12/21/19 00:22 36.7 95 18 135/89 95 Room Air 12/21/19 00:00 95 Room Air 12/20/19 20:16 37.2 100 18 137/98 94 Room Air 12/20/19 20:00 95 Room Air 12/20/19 19:00 125 12/20/19 18:40 100 16 140/74 98 12/20/19 14:30 35.8 117 20 159/89 (112) 97 I & O 12/21/19 07:00 Intake Total 1750 ml Output Total 225 ml Balance 1525 ml Height & Weight Height: 5'7.00" Weight: 187lbs. 0.5oz. 84.336300jp; 23.99 BMI Method:Stated General Appearance: No Apparent Distress, WD/WN, Other (Alert and oriented, very pleasant gentleman, understandably concerned about the cost of insulin therapy.) Neck: Full Range of Motion, Normal Inspection Respiratory: No Accessory Muscle Use, No Respiratory Distress Cardiovascular: Normal Peripheral Pulses, Tachycardia Capillary Refill: Less Than 3 Seconds Extremity: Normal Capillary Refill, Normal Inspection Neurologic/Psychiatric: Alert, Oriented x3 Skin: Normal Color, Warm/Dry Results Lab Laboratory Tests 12/20/19 14:25 12/20/19 19:00 12/21/19 00:02 12/21/19 03:19 Assessment/Plan Assessment/Plan Acute DKA -DKA protocol Hyperkalemia -Holding KCL in IVF and awaiting next labs Hyponatremia -Change IVF to D5LR BRANDI ARIAS DO Dec 21, 2019 04:42
[2019-12-21] MEDS: SUCRALFATE 1 GM (CARAFATE) TAB PO SCH ×4 (05:37→20:28)
[2019-12-21] MEDS: D5 LR IV SOLUTION 1,000 ML IV SCH ×5 (05:37→20:34)
[2019-12-21] MEDS: LACTATED RINGERS 1,000 ML IV SCH ×5 (06:45→23:27)
[2019-12-21] MEDS: OMEGA 3 (FISH OIL) 1000 MG CAP PO SCH ×2 (08:06→16:13)
[2019-12-21] MEDS: PANTOPRAZOLE 20 MG TABLET (PROTONIX) PO SCH (08:06)
[2019-12-21 08:42] LABS: CHLORIDE 97 MMOL/L (98-107); POTASSIUM 3.4 MMOL/L (3.6-5.0); SODIUM 129 MMOL/L (135-145)
[2019-12-21 08:43] LABS: CALCIUM 8.6 MG/DL (8.5-10.1); GLUCOSE 231 MG/DL (70-105)
[2019-12-21 08:45] LABS: CARBON DIOXIDE 17 MMOL/L (21-32)
[2019-12-21 08:47] LABS: CREATININE SERUM 0.79 MG/DL (0.60-1.30); GFR ESTIMATED > 60
[2019-12-21 08:48] LABS: BUN/CREATININE RATIO 11
--- NOTE | 2019-12-21 09:15 | Diagnostic Imaging Report ---
INDICATION: Hyperglycemia. Compared 02/17/2011. FINDINGS: No focal consolidation, effusion, pneumothorax or acute failure pattern. Incidental azygos fissure on the right noted. IMPRESSION: Unremarkable frontal chest Dictated by: Dictated on workstation # [id number]
--- NOTE | 2019-12-21 10:51 | History & Physical-Hospitalist ---
History of Present Illness HPI/Chief Complaint Pt is a 59yoCM with a PMH of HLD, HTN, and NIDDMII who presented to the ER due to abnormal labs. He states he was feeling poorly for a while and had his blood drawn by his PCP which showed a BS of >400 and triglycerides of 8249 with a total cholesterol of 1057. He complained of RUQ pain to the ER but to me his only complaint regarding pain is where his potassium is burning. Source: patient Date Seen 12/21/19 Time Seen by a Provider: 10:40 Attending Physician Elroy Harley MD PCP Alfredo Deras DO Referring Physician Date of Admission Dec 20, 2019 at 17:17 Home Medications & Allergies Home Medications Reviewed patient Home Medication Reconciliation performed by pharmacy medication reconciliations rv service technician and/or nursing. Patients Allergies have been reviewed. Allergies Allergies Coded Allergies aspirin (Verified Allergy, Severe, HX STOMACHS ULCER, 07/09/19) ibuprofen (Verified Allergy, Intermediate, HX STOMACH ULCERS, 07/09/19) morphine (Verified Allergy, Unknown, 07/09/19) Past Qwntkht-Vsdkau-Pdpwjp Hx Past Med/Social Hx: Reviewed Nursing Past Med/Soc Hx Patient Social History Alcohol Use: Denies Use Recreational Drug Use: No Smoking Status: Never a Smoker 2nd Hand Smoke Exposure: No Recent Foreign Travel: No Contact w/other who traveled: No Recent Hopitalizations: No Recent Infectious Disease Expo: No Immunizations Up To Date Date of Pneumonia Vaccine: Nov 19, 2018 Date of Influenza Vaccine: Nov 19, 2018 Seasonal Allergies Seasonal Allergies: Yes Past Medical History Surgeries: Abdominal, Orthopedic, Pacemaker Cardiac: Hypertension, Irregular Heartbeat Neurological: Headaches /Migraines Reproductive: No Sexually Transmitted Disease: No HIV/AIDS: No Genitourinary: Kidney Stones Gastrointestinal: Gastroesophageal Reflux, Chronic Diarrhea Musculoskeletal: Degenerate Disk Disease, Arthritis, Chronic Back Pain Endocrine: Diabetes, Non-Insulin dep Loss of Vision: Right Hearing Impairment: Denies History of Blood Disorders: No Adverse Reaction to Blood Fernandez: No (N/A) Family History Reviewed Nursing Family Hx Patient reports no known family medical history. No Pertinent Family Hx Review of Systems Constitutional: No chills, No fever EENTM: no symptoms reported Respiratory: no symptoms reported Cardiovascular: no symptoms reported Gastrointestinal: abdominal pain Genitourinary: no symptoms reported Musculoskeletal: no symptoms reported Skin: no symptoms reported Psychiatric/Neurological: No Symptoms Reported Physical Exam Physical Exam Vital Signs Vital Signs - First Documented 12/20/19 12/20/19 14:30 20:00 Temp 35.8 Pulse 117 Resp 20 B/P (MAP) 159/89 (112) Pulse Ox 97 O2 Delivery Room Air Capillary Refill : Less Than 3 Seconds Height, Weight, BMI Height: 5'7.00" Weight: 187lbs. 0.5oz. 84.729923rm; 23.99 BMI Method:Stated General Appearance: No Apparent Distress, WD/WN HEENT: PERRL/EOMI, Moist Mucous Membranes Neck: Normal Inspection, Supple Respiratory: Lungs Clear, No Accessory Muscle Use, No Respiratory Distress Cardiovascular: Regular Rate, Rhythm, No Murmur Gastrointestinal: Normal Bowel Sounds, Non Tender, Soft Extremity: No Calf Tenderness, No Pedal Edema Neurologic/Psychiatric: Alert, Oriented x3, Normal Mood/Affect Results Results/Procedures Labs Laboratory Tests 12/20/19 14:25 12/20/19 19:00 12/21/19 00:02 12/21/19 03:19 12/21/19 08:09 Patient resulted labs reviewed. Imaging: Reviewed Imaging Report Imaging [facility], [place] NAME: ANGELLA HIGHTOWER [facility] REC#: [id number] PT STATUS: REG ER : 1960 PHYSICIAN: VALERY HEARD APRN ADMIT DATE: 12/20/19/ER Draft Date of Exam:12/20/19 US GALLBLADDER [id number] PROCEDURE: US Gallbladder. TECHNIQUE: Multiple real-time grayscale images were obtained over the right upper quadrant in various projections. INDICATION: Right upper quadrant pain. The liver is enlarged at 23 cm. No discrete liver mass is identified. The portal vein is patent and shows normal direction of flow. Gallbladder is without stones or sludge. No wall thickening or biliary ductal dilatation is seen. The visualized pancreas is unremarkable. Aorta is nonaneurysmal. Right kidney does contain approximately a 17 mm stone. No hydronephrosis is identified. There is no ascites. IMPRESSION: 1. Hepatomegaly. 2. No evidence of cholelithiasis or acute cholecystitis. 3. Nonobstructing right renal calculus. Dictated on workstation # [id number] Dict: 12/20/19 1557 Trans: 12/20/19 1601 [facility] [phone] Interpreted by: GUI DIXON MD Electronically signed by: [facility] [place], [place] NAME: ANGELLA HIGHTOWER MED REC#: [id number] PT STATUS: ADM IN : 1960 PHYSICIAN: ELROY HARLEY MD ADMIT DATE: 12/20/19/[facility] Signed Date of Exam:12/21/19 CHEST 1 VIEW, AP/PA ONLY INDICATION: Hyperglycemia. Compared 02/17/2011. FINDINGS: No focal consolidation, effusion, pneumothorax or acute failure pattern. Incidental azygos fissure on the right noted. IMPRESSION: Unremarkable frontal chest Dictated by: Dictated on workstation # [id number] Dict: 12/21/19 0744 Trans: 12/21/19 0947 [facility] [id number] Interpreted by: MARIA E CHURCH Electronically signed by: MARIA E CHURCH 12/21/19 0947 Assessment/Plan Admission Diagnosis Hypertriglyceridemia Admission Status: Inpatient Order (span 2 midnights) Reason for Inpatient Admission: see below Assessment and Plan Hypertriglyceridemia hypercholesterolemia triglycerides down to 5000 today Continue insulin gtt Statin, fenofibrate, fish oil ordered Check in AM DKA NIDDMII Mild CKA on arrival, gap down to 15 Continue insulin gtt more from hypertriglyceridemia Continue DKA protocol HTN Continue home meds when med rec available DVT ppx: Lovenox Clinical Quality Measures DVT/VTE Risk/Contraindication: Risk Factor Score Per Nursin RFS Level Per Nursing on Admit: 3=High ELROY HARLEY MD Dec 21, 2019 10:51
[2019-12-21] MEDS ORDERED: ENOXAPARIN 40 MG/0.4 ML (LOVENOX) SYR SQ SCH (12:00)
[2019-12-21] MEDS: ENOXAPARIN 40 MG/0.4 ML (LOVENOX) SYR SC SCH (18:10)
[2019-12-21] MEDS: ONDANSETRON 4 MG/2 ML (SDV) Z0FRAN IV PRN (18:13)
[2019-12-21] MEDS: FENOFIBRATE 134 MG (LOFIBRA) CAPSULE PO SCH (20:28)
[2019-12-21 21:07] LABS: BUN/CREATININE RATIO 10; CALCIUM 8.3 MG/DL (8.5-10.1); CARBON DIOXIDE 15 MMOL/L (21-32); CHLORIDE 102 MMOL/L (98-107); CREATININE SERUM 0.93 MG/DL (0.60-1.30); GFR ESTIMATED > 60; GLUCOSE 206 MG/DL (70-105); POTASSIUM 3.6 MMOL/L (3.6-5.0); SODIUM 132 MMOL/L (135-145)
[2019-12-22] MEDS: D5 LR IV SOLUTION 1,000 ML IV SCH ×3 (00:45→09:18)
[2019-12-22] MEDS: POTASSIUM CL 10MEQ/50ML IVPB 50 ML IV SCH ×3 (00:46→09:19)
[2019-12-22] MEDS: fentaNYL INJECTION 100 MCG/2 ML AMP IVP PRN ×6 (02:39→23:23)
[2019-12-22] MEDS: LACTATED RINGERS 1,000 ML IV SCH ×3 (02:41→10:11)
[2019-12-22 03:51] LABS: CHLORIDE 104 MMOL/L (98-107); POTASSIUM 4.5 MMOL/L (3.6-5.0); SODIUM 133 MMOL/L (135-145)
[2019-12-22 03:52] LABS: BASOPHILS % (AUTO) 1 % (0-10); EOSINOPHILS # (AUTO) 0.2 10^3/uL (0.0-0.3); EOSINOPHILS % (AUTO) 3 % (0-10); HEMATOCRIT 28 % (40-54); HEMOGLOBIN 11.2 g/dL (13.3-17.7); LYMPHOCYTES # (AUTO) 1.6 10^3/uL (1.0-4.0); LYMPHOCYTES % (AUTO) 30 % (12-44); MEAN CORPUSCULAR HEMOGLOBIN 34 pg (25-34); MEAN CORPUSCULAR HGB CONC 39 g/dL (32-36); MEAN CORPUSCULAR VOLUME 87 fL (80-99); MEAN PLATELET VOLUME 9.6 fL (9.0-12.2); MONOCYTES # (AUTO) 0.5 10^3/uL (0.0-1.0); MONOCYTES % (AUTO) 9 % (0-12); NEUTROPHILS % (AUTO) 57 % (42-75); PLATELET COUNT 216 10^3/uL (130-400); WHITE BLOOD COUNT 5.3 10^3/uL (4.3-11.0)
[2019-12-22 03:53] LABS: CALCIUM 8.2 MG/DL (8.5-10.1); GLUCOSE 121 MG/DL (70-105)
[2019-12-22 03:55] LABS: CARBON DIOXIDE 16 MMOL/L (21-32)
[2019-12-22 03:57] LABS: CREATININE SERUM 0.83 MG/DL (0.60-1.30); GFR ESTIMATED > 60; PHOSPHORUS 1.5 MG/DL (2.3-4.7)
[2019-12-22 03:58] LABS: BUN/CREATININE RATIO 10
[2019-12-22 03:59] LABS: MAGNESIUM 1.4 MG/DL (1.6-2.4)
[2019-12-22 04:11] LABS: TRIGLYCERIDES 3735 MG/DL (<150)
[2019-12-22 05:00] LABS: ATYPICAL LYMPHOCYTES 3 %; EOSINOPHILS % (MANUAL) 2 %; HYPOCHROMASIA MARKED; LYMPHOCYTES % (MANUAL) 33 %; MONOCYTES % (MANUAL) 9 %; NEUTROPHILS % (MANUAL) 53 %; POIKILOCYTOSIS SLIGHT; POLYCHROMASIA SLIGHT; SMUDGE CELLS 2
[2019-12-22 05:01] LABS: ANISOCYTOSIS SLIGHT; MICROCYTOSIS MODERATE
--- NOTE | 2019-12-22 05:05 | Pulmonary Progress Note ---
Subjective Time Seen by a Provider: 05:03 Subjective/Events-last exam No complications noted. Sepsis Event Evaluation Height, Weight, BMI Height: 5'7.00" Weight: 187lbs. 0.5oz. 84.735285uw; 23.99 BMI Method:Stated Exam Exam Vital Signs Date Time Temp Pulse Resp B/P (MAP) Pulse Ox O2 Delivery O2 Flow Rate FiO2 12/22/19 04:10 99 Room Air 12/22/19 03:38 36.6 92 18 126/76 95 Room Air 12/22/19 01:00 86 12/22/19 00:18 36.3 97 19 118/63 95 Room Air 12/22/19 00:18 36.3 12/22/19 00:00 99 Room Air 12/21/19 21:00 99 Room Air 12/21/19 20:43 35.3 102 18 122/72 99 Room Air 12/21/19 20:00 99 Room Air 12/21/19 19:00 102 12/21/19 16:20 36.4 97 16 155/85 97 Room Air 12/21/19 16:00 Room Air 12/21/19 12:35 95 12/21/19 11:59 Room Air 12/21/19 11:58 37.0 94 18 142/81 97 Room Air 12/21/19 08:00 Room Air 12/21/19 08:00 Room Air 12/21/19 08:00 36.7 102 18 144/87 96 Room Air 12/21/19 07:00 107 I & O 12/22/19 07:00 Intake Total 3900 ml Output Total 475 ml Balance 3425 ml Height & Weight Height: 5'7.00" Weight: 187lbs. 0.5oz. 84.571250gw; 23.99 BMI Method:Stated General Appearance: No Apparent Distress, WD/WN HEENT: PERRL/EOMI, Moist Mucous Membranes Neck: Normal Inspection, Supple Respiratory: Lungs Clear, No Accessory Muscle Use, No Respiratory Distress Cardiovascular: Regular Rate, Rhythm, No Murmur Capillary Refill: Less Than 3 Seconds Extremity: No Calf Tenderness, No Pedal Edema Neurologic/Psychiatric: Alert, Oriented x3, Normal Mood/Affect Skin: Normal Color, Warm/Dry Results Lab Laboratory Tests 12/20/19 14:25 12/20/19 19:00 12/21/19 00:02 12/21/19 03:19 12/21/19 08:09 12/21/19 18:51 12/22/19 02:55 Assessment/Plan Assessment/Plan Acute DKA -DKA protocol Hyponatremia -Change IVF to D5LR Hypomag and hypophos -replace BRANDI ARIAS DO Dec 22, 2019 05:05
[2019-12-22] MEDS ORDERED: MAGNESIUM 1 GM/100 ML IVPB 400 ML IV ONE (05:13)
[2019-12-22] MEDS ORDERED: SODIUM PHOSPHATE INJ 30 MM in NS (IVPB) 250 ML IV ONE (05:15)
[2019-12-22] MEDS: MAGNESIUM 1 GM/100 ML IVPB 100 ML IV SCH ×4 (05:16→08:40)
[2019-12-22] MEDS: SUCRALFATE 1 GM (CARAFATE) TAB PO SCH ×4 (06:45→21:00)
[2019-12-22] MEDS: PANTOPRAZOLE 20 MG TABLET (PROTONIX) PO SCH (08:39)
[2019-12-22] MEDS: OMEGA 3 (FISH OIL) 1000 MG CAP PO SCH ×2 (08:39→17:43)
[2019-12-22] MEDS ORDERED: NS IV 1000 ML 1,000 ML ONE (10:45)
--- NOTE | 2019-12-22 10:45 | NUR ---
INSULIN GTT CHANGED TO NON DKA PROTOCOL PER DR BOWIE. PT BLOOD SUGAR 191, GTT TO START AT 3ML/HR PER PROTOCOL. DOSE RATE CONFIRMED BY MYRIAM VILLARREAL.
[2019-12-22] MEDS: NS IV 1000 ML 1,000 ML IV SCH ×2 (10:47→20:56)
--- NOTE | 2019-12-22 11:06 | Progress Note - Hospitalist ---
Subjective HPI/CC On Admission Date Seen by Provider: Dec 22, 2019 Time Seen by Provider: 11:02 Pt is a 59yoCM with a PMH of HLD, HTN, and NIDDMII who presented to the ER due to abnormal labs. He states he was feeling poorly for a while and had his blood drawn by his PCP which showed a BS of >400 and triglycerides of 8249 with a tot al cholesterol of 1057. He complained of RUQ pain to the ER but to me his only complaint regarding pain is where his potassium is burning. Subjective/Events-last exam Pt reports doing well. Reports having some allergy symptoms. Would like flonase. Objective Exam Vital Signs Vital Signs Date Time Temp Pulse Resp B/P (MAP) Pulse Ox O2 Delivery O2 Flow Rate FiO2 12/22/19 13:00 108 12/22/19 12:31 36.4 18 151/80 97 Room Air Capillary Refill : Less Than 3 Seconds General Appearance: No Apparent Distress, WD/WN Respiratory: Lungs Clear, No Respiratory Distress Cardiovascular: Regular Rate, Rhythm, No Murmur Neurologic/Psychiatric: Alert, Oriented x3 Results/Procedures Lab Laboratory Tests 12/21/19 18:51 12/22/19 02:55 Patient resulted labs reviewed. Imaging: Reviewed Imaging Report Assessment/Plan Assessment and Plan Assess & Plan/Chief Complaint Hypertriglyceridemia hypercholesterolemia triglycerides down to 3735 today Continue insulin gtt until in the hundreds Statin, fenofibrate, fish oil Trend triglycerides DKA- resolved NIDDMII Mild CKA on arrival, gap down to 15 Continue insulin gtt but switch to non DKA protocol HTN Continue home meds when med rec available DVT ppx: Lovenox Diagnosis/Problems Diagnosis/Problems (1) Hyperlipidemia Status: Acute Qualifiers: Hyperlipidemia type: unspecified Qualified Codes: E78.5 - Hyperlipidemia, unspecified (2) Hyperglycemia Status: Acute Clinical Quality Measures DVT/VTE Risk/Contraindication: Risk Factor Score Per Nursin RFS Level Per Nursing on Admit: 3=High ELROY BOWIE MD Dec 22, 2019 11:06
[2019-12-22] MEDS: FLUTICASONE NASAL SPRAY (FLONASE) 16 GM BTL NS SCH (11:39)
[2019-12-22 14:22] LABS: CHLORIDE 103 MMOL/L (98-107); POTASSIUM 4.2 MMOL/L (3.6-5.0); SODIUM 134 MMOL/L (135-145)
[2019-12-22 14:23] LABS: CALCIUM 8.2 MG/DL (8.5-10.1)
[2019-12-22 14:24] LABS: GLUCOSE 263 MG/DL (70-105)
[2019-12-22 14:25] LABS: CARBON DIOXIDE 14 MMOL/L (21-32)
[2019-12-22 14:28] LABS: CREATININE SERUM 1.08 MG/DL (0.60-1.30); GFR ESTIMATED > 60
[2019-12-22 14:29] LABS: BUN/CREATININE RATIO 5
[2019-12-22] MEDS: ENOXAPARIN 40 MG/0.4 ML (LOVENOX) SYR SC SCH (17:43)
[2019-12-22] MEDS: FENOFIBRATE 134 MG (LOFIBRA) CAPSULE PO SCH (21:00)
[2019-12-22 22:08] LABS: CALCIUM 8.2 MG/DL (8.5-10.1); GLUCOSE 112 MG/DL (70-105)
[2019-12-22 22:10] LABS: CARBON DIOXIDE 18 MMOL/L (21-32)
[2019-12-22 22:12] LABS: CREATININE SERUM 0.89 MG/DL (0.60-1.30); GFR ESTIMATED > 60
[2019-12-22 22:13] LABS: BUN/CREATININE RATIO 7
[2019-12-22 22:14] LABS: CHLORIDE 102 MMOL/L (98-107); POTASSIUM 4.2 MMOL/L (3.6-5.0); SODIUM 134 MMOL/L (135-145)
[2019-12-23] MEDS: fentaNYL INJECTION 100 MCG/2 ML AMP IVP PRN ×2 (02:11→05:19)
[2019-12-23 03:42] LABS: CHLORIDE 105 MMOL/L (98-107); SODIUM 135 MMOL/L (135-145)
[2019-12-23 03:43] LABS: CALCIUM 7.7 MG/DL (8.5-10.1)
[2019-12-23 03:44] LABS: GLUCOSE 201 MG/DL (70-105)
[2019-12-23 03:45] LABS: CARBON DIOXIDE 15 MMOL/L (21-32)
[2019-12-23 03:47] LABS: CREATININE SERUM 0.84 MG/DL (0.60-1.30); GFR ESTIMATED > 60; PHOSPHORUS 2.9 MG/DL (2.3-4.7)
[2019-12-23 03:48] LABS: BUN/CREATININE RATIO 8
[2019-12-23 03:50] LABS: MAGNESIUM 1.7 MG/DL (1.6-2.4)
[2019-12-23 03:51] LABS: TRIGLYCERIDES 2091 MG/DL (<150)
[2019-12-23] MEDS: SUCRALFATE 1 GM (CARAFATE) TAB PO SCH ×4 (05:16→20:01)
--- NOTE | 2019-12-23 05:58 | Pulmonary Progress Note ---
Subjective Time Seen by a Provider: 05:54 Subjective/Events-last exam Pt is still on insulin gtt. Sepsis Event Evaluation Height, Weight, BMI Height: 5'7.00" Weight: 187lbs. 0.5oz. 84.087927yl; 23.99 BMI Method:Stated Exam Exam Vital Signs Date Time Temp Pulse Resp B/P (MAP) Pulse Ox O2 Delivery O2 Flow Rate FiO2 12/23/19 01:00 90 12/23/19 00:00 37.0 95 18 157/89 95 Room Air 12/23/19 00:00 Room Air 12/22/19 21:00 Room Air 12/22/19 20:00 Room Air 12/22/19 19:33 37.1 107 16 168/113 96 Room Air 12/22/19 19:00 108 12/22/19 16:00 Room Air 12/22/19 16:00 36.6 103 17 173/99 96 Room Air 12/22/19 13:00 108 12/22/19 12:31 36.4 104 18 151/80 97 Room Air 12/22/19 12:00 Room Air 12/22/19 08:04 36.5 101 18 134/69 96 Room Air 12/22/19 08:00 Room Air 12/22/19 08:00 Room Air 12/22/19 07:00 104 I & O 12/23/19 07:00 Intake Total 1400 ml Output Total 2050 ml Balance -650 ml Height & Weight Height: 5'7.00" Weight: 187lbs. 0.5oz. 84.607150hs; 23.99 BMI Method:Stated General Appearance: No Apparent Distress, WD/WN HEENT: PERRL/EOMI, Moist Mucous Membranes Neck: Normal Inspection, Supple Respiratory: Lungs Clear, No Respiratory Distress Cardiovascular: Regular Rate, Rhythm, No Murmur Capillary Refill: Less Than 3 Seconds Extremity: No Calf Tenderness, No Pedal Edema Neurologic/Psychiatric: Alert, Oriented x3 Skin: Normal Color, Warm/Dry Results Lab Laboratory Tests 12/21/19 08:09 12/21/19 18:51 12/22/19 02:55 12/22/19 13:55 12/22/19 21:49 12/23/19 03:10 Assessment/Plan Assessment/Plan Acute DKA -Pt still has an anion gapped metabolic acidosis -Repeat UA and betahydroxybuterate -Check UA for ketones -IF still in DKA will need to change IVF to D5NS -DKA protocol Hyponatremia -currently are NS at 100cc/hr Hypertriglyceridemia -Continue insulin gtt Hypomag and hypophos -replace BRANDI ARIAS DO Dec 23, 2019 05:58
[2019-12-23] MEDS: NS IV 1000 ML 1,000 ML IV SCH ×2 (06:05→16:40)
[2019-12-23] MEDS ORDERED: LACTATED RINGERS 1,000 ML IV ONE (07:15)
[2019-12-23] MEDS: PANTOPRAZOLE 20 MG TABLET (PROTONIX) PO SCH (07:44)
[2019-12-23] MEDS: FLUTICASONE NASAL SPRAY (FLONASE) 16 GM BTL NS SCH (07:44)
[2019-12-23] MEDS: OMEGA 3 (FISH OIL) 1000 MG CAP PO SCH ×2 (07:46→17:18)
[2019-12-23 08:39] LABS: BILIRUBIN,URINE NEGATIVE (NEGATIVE); CLARITY,URINE CLEAR; COLOR,URINE YELLOW; GLUCOSE, URINE (UA) 3+ (NEGATIVE); KETONES,URINE NEGATIVE (NEGATIVE); LEUKOCYTE ESTERASE ,URINE NEGATIVE (NEGATIVE); NITRITE,URINE NEGATIVE (NEGATIVE); PH,URINE 5.5 (5-9); PROTEIN,URINE NEGATIVE (NEGATIVE)
[2019-12-23 08:53] LABS: AMORPHOUS SEDIMENT,UR RARE AMOR URATES /LPF; BACTERIA,URINE TRACE /HPF; WBC,URINE RARE /HPF
[2019-12-23] MEDS ORDERED: ACET-2650 PO (10:19)
[2019-12-23] MEDS ORDERED: LISI1TAB46 PO (10:19)
[2019-12-23] MEDS ORDERED: DEXT1TAB3 PO (10:19)
[2019-12-23] MEDS ORDERED: CETI10TA49 PO (10:19)
[2019-12-23] MEDS ORDERED: GUAI-836 PO (10:19)
[2019-12-23] MEDS ORDERED: FLUT9.9S NS (10:19)
[2019-12-23] MEDS ORDERED: CALC10009 PO (10:19)
--- NOTE | 2019-12-23 10:21 | NUR ---
SPOKE WITH THE PT AND CALLED [facility] TO COMPLETE THE MED REC [facility] FILLED THE FOLLOWING MEDICATIONS: 09-25-2019 METFORMIN 1000MG #180/90DS 10-03-2019 GLIMEPIRIDE 4MG #180/90DS 12-17-2019 LISINOPRIL/HCTZ 20/12.5MG #30/30DS ACCORDING TO [facility] THEY RECEIVED NEW PRESCRIPTIONS FOR INSULIN AND A CHOLESTEROL LOWERING MEDICATION BUT DUE TO THE PTS INSURANCE NOT COVERING THEM THE PT DID NOT PICK THEM UP (ALSO THEY WERE SENT IN AT THE END OF LAST WEEK AND THE PT WAS ADMITTED HERE ON Monday12-20-2019). OTC MEDS: TYLENOL SINUS CORICIDIN TYLENOL ARTHRITIS FLONASE ZYRTEC TUMS Addendum: 12/23/19 at 1445 by ALDO HAMMER CPhT THE FOLLOWING MEDICATIONS WERE SENT TO [facility] ON 12-20-2019 BUT PT WAS NOT ABLE TO GROUP COUNSELOR DUE TO INSURANCE DENYING/COST: NOVOLOG VIALS #1 VIAL - DIRECTIONS ARE TO USE PER SLIDING SCALE TRESIBA FLEX TOUCH U-200- 20 UNITS DAILY ROSUVASTATIN 20MG WAS ALSO FILLED BY [facility] AND THE PT COPAY IS $64.00 FOR #30
--- NOTE | 2019-12-23 10:30 | NUR ---
PT TO CT VIA WHEELCHAIR AT THIS TIME.
--- NOTE | 2019-12-23 10:44 | NUR ---
PT BACK TO ROOM FROM CT AT THIS TIME. TOLERATED WELL.
[2019-12-23] MEDS: HYDROmorphone 2 MG/ML VIAL (DILAUDID) IV PRN ×3 (10:59→23:09)
--- NOTE | 2019-12-23 12:36 | Diagnostic Imaging Report ---
INDICATION: Nephrolithiasis, right upper quadrant pain. TECHNIQUE: 2 supine view of the abdomen 10:37 AM CORRELATION STUDY: None FINDINGS: 16 mm opacification projecting over the inferior pole right kidney. No definitive calcification of the expected course of the right ureter. No definitive abnormal calcification left renal silhouette. Punctate calcification left hemipelvis likely vasculature. Possibly disrupted calcination distal left ureter would be difficult to exclude. There is moderate overlying bowel gas and stool which does obscure detail. IMPRESSION: 1. 16 mm calcification suspected over the right renal silhouette. 2. Opacification of the left hemipelvis may very well be vascular. Possibly this is in the expected location of distal left ureter however is not excluded. Dictated by: Dictated on workstation # [id number]
[2019-12-23 14:29] LABS: CHLORIDE 104 MMOL/L (98-107); POTASSIUM 3.3 MMOL/L (3.6-5.0); SODIUM 137 MMOL/L (135-145)
[2019-12-23 14:30] LABS: CALCIUM 7.8 MG/DL (8.5-10.1); GLUCOSE 173 MG/DL (70-105)
[2019-12-23 14:32] LABS: CARBON DIOXIDE 18 MMOL/L (21-32)
[2019-12-23 14:34] LABS: CREATININE SERUM 0.87 MG/DL (0.60-1.30); GFR ESTIMATED > 60
[2019-12-23 14:35] LABS: BUN/CREATININE RATIO 7
--- NOTE | 2019-12-23 14:45 | NUR ---
Diabetic Education order rec'd. Patient states he sees Dr. Deras and has been diabetic for about 10years, the first time he found out he diabetic was when he entered the hospital with a blood glucose of around 700. States he does not take insulin at home but does take metformin and glimiperide. States he doesn't smoke but his does, and she is also a type II diabetic. Education shared with pt: Overview of diabetes, glucometer checks, insulins,where/how to give oneself insulin, use of sharps containers for needles, healthy eating choices, exercise, and other diabetic medications. Patient is blind in his right eye, and has difficulty seeing with his left eye. Requests Education pamphlet be enlarged and that he would maybe be interested in diabetic education classes here at the hospital. States he is not good at technology, so his would need to help him set it up, if we offered a zoom version of diabetic education classes. Large Print Version of diabetic education packet printed for patient. Will con't to monitor.
--- NOTE | 2019-12-23 15:09 | Progress Note - Hospitalist ---
Subjective HPI/CC On Admission Date Seen by Provider: Dec 23, 2019 Time Seen by Provider: 10:15 Pt is a 59yoCM with a PMH of HLD, HTN, and NIDDMII who presented to the ER due to abnormal labs. He states he was feeling poorly for a while and had his blood drawn by his PCP which showed a BS of >400 and triglycerides of 8249 with a tot al cholesterol of 1057. He complained of RUQ pain to the ER but to me his only complaint regarding pain is where his potassium is burning. Subjective/Events-last exam He reports feeling well. He reports right-sided abdominal and back pain. He denies any trouble breathing. He denies any fevers. He denies any cough. Focused Exam Lactate Level 12/23/19 06:10: Lactic Acid Level 2.70*H 12/23/19 08:20: Lactic Acid Level 3.16*H 12/23/19 12:15: Lactic Acid Level 1.84 Lactic Acid Level Laboratory Tests Test 12/23/19 12:15 Lactic Acid Level 1.84 MMOL/L (0.50-2.00) Objective Exam Vital Signs Vital Signs Date Time Temp Pulse Resp B/P (MAP) Pulse Ox O2 Delivery O2 Flow Rate FiO2 12/23/19 14:47 108 13 155/111 95 Room Air 12/23/19 08:00 36.0 Capillary Refill : Less Than 3 Seconds General Appearance: No Apparent Distress, WD/WN HEENT: PERRL/EOMI, Pharynx Normal Neck: Normal Inspection, Supple Respiratory: Lungs Clear, Normal Breath Sounds, No Respiratory Distress Cardiovascular: Regular Rate, Rhythm, No Edema, No Murmur Gastrointestinal: Normal Bowel Sounds, Non Tender, Soft Extremity: Normal Inspection, Non Tender, No Pedal Edema Neurologic/Psychiatric: Alert, Oriented x3, No Motor/Sensory Deficits, Normal Mood/Affect Skin: Normal Color, Warm/Dry Results/Procedures Lab Laboratory Tests 12/22/19 21:49 12/23/19 03:10 12/23/19 14:10 Patient resulted labs reviewed. Imaging: Reviewed Imaging Report Assessment/Plan Assessment and Plan Assess & Plan/Chief Complaint Hypertriglyceridemia Hypercholesterolemia triglycerides down to 2090 today Continue insulin gtt Statin, fenofibrate, fish oil Trend triglycerides DKA- resolved NIDDMII A1C 14.9% Continue insulin gtt Add Levemir 10 units twice daily HTN Lisinopril DVT ppx: Lovenox Diagnosis/Problems Diagnosis/Problems (1) Hypertriglyceridemia Status: Acute (2) T2DM (type 2 diabetes mellitus) Status: Acute Qualifiers: Diabetes mellitus usp insulin use: without terminal system operator use Diabetes mellitus complication status: with hyperglycemia Qualified Codes: E11.65 - Type 2 diabetes mellitus with hyperglycemia (3) HTN (hypertension) Status: Acute Qualifiers: Hypertension type: essential hypertension Qualified Codes: I10 - Essential (primary) hypertension Clinical Quality Measures DVT/VTE Risk/Contraindication: Risk Factor Score Per Nursin RFS Level Per Nursing on Admit: 3=High ANNABELLA MERCEDES MD Dec 23, 2019 15:09
[2019-12-23] MEDS ORDERED: hydrALAZINE (APRESOLINE) 25 MG TAB PO PRN ×2 (15:15→16:30)
[2019-12-23] MEDS ORDERED: lisINopril 40 MG (PRINIVIL) TABLET PO ONE (15:15)
--- NOTE | 2019-12-23 15:24 | NUR ---
CM/SS: Visited with pt as per Social Service Consult related to insulin cost. Plan: Pt is from home and he will return there at time of discharge Summary: Pt reports he is concerned about the cost of his medications. Talk with pt as to his being from home and what was his circumstance around his not being able to afford his insulin medication. [facility] [place] However, he has a spend down and during that time he has not been able to afford his medications as he has to pay full means. He reports he is on disability and his works and they now has a spend down. Pt reports he is now in counseling and he can process the diagnosis of being diabetic. Pt reports he just blocked it out of his mind and not deal with being diabetic. Pt is encouraged to take one day at a time, and is encouraged by this worker that they will see if there is assistance for his medications while in the spend down. Pt verbalizes understanding. This worker will follow up.
--- NOTE | 2019-12-23 15:27 | NUR ---
RD ASSESSMENT PMHx: HLD; HTN; DM; GERD; chronic diarrhea; PT INTERACTION: Pt was awake and pleasant during consult for diet education. Pt states current appetite is so-so. Note avg PO intake 100% x3d, per chart review. Pt states following a regular diet at home, and has no issues with chewing/swallowing food. Pt states some recent issues with nausea, but not vomiting, constipation, or diarrhea. Note last BM was 12/21, and pt not currently on bowel regimen per chart review. Pt states recent wt loss, going from "190# down to 165#." Note current wt of 173#, and note recent 2# wt loss x5mon, per chart review. Pt states current DM management is "not good. It's why I'm in here." Note unable to determine recent HbA1c of 14.7 (12/22/19), per chart review. ABNORMAL NUTRITION-RELATED LAB VALUES LOW: Ca 7.7; HIGH: glu 201; TG 2091; Est. kcal needs: 3778-3970 kcal | 20-25 kcal/kg Est. Pro needs: 63-79 g Pro | 0.8-1.0 g Pro/kg PES STATEMENT: Food- and nutrition-related knowledge deficit (NB-1.1) related to lack of prior nutrition-related recommendations as evidenced by pt interview, and recent HbA1c of 14.7 (12/22/2019). INTERVENTION: Continue with current diet order of CHO 60g/m 3snack diet. Switch current supplementation order of Ensure Enlive with meals TID to Glucerna (krys/straw) with meals TID, for increased kcal intake. Provides 220 kcal and 10 g Pro per serving. Discussed and provided handout on diet education for DM management. Discussed CHO counting, portion control, and fiber intake. Pt asked questions regarding current foods in his diet. Pt verbalized understanding of information presented, and appears confident to follow recommendations upon discharge. Provided pt with contact information should he have questions upon discharge. Will continue to follow and reassess as pt needs, intake, and status change. Jennie Lopez, MS RD LD
--- NOTE | 2019-12-23 16:45 | Diagnostic Imaging Report ---
PROCEDURE: CT urinary tract, rule out kidney stone. TECHNIQUE: Multiple contiguous axial images were obtained through the abdomen and pelvis without the use of intravenous contrast. Auto Exposure Controls were utilized during the CT exam to meet ALARA standards for radiation dose reduction. INDICATION: Right upper quadrant pain, history of nephrolithiasis. CORRELATION STUDY: 08/10/2006 FINDINGS: LOWER THORAX: Areas of likely bibasilar scarring. No significant basilar infiltrate. Heart size is normal. Pacemaker leads with metallic artifact present. LIVER: Enlarged at 24 cm craniocaudal length. GALLBLADDER: Present and unremarkable. No bile duct dilatation. SPLEEN: Borderline enlarged, 11.8 x 14.7 x 6.5 cm. PANCREAS: Unremarkable. ADRENAL GLANDS: Unremarkable. KIDNEYS: Bilateral nonobstructing renal stones are present. Stone burden greatest on the right. Largest stone at the inferior pole on the right measures up to 18 mm. No ureteric calcification or obstructive uropathy. ABDOMINAL AORTA: Mild wall calcification, nonaneurysmal. GASTROINTESTINAL TRACT: No obstruction or inflammation. Normal appendix. URINARY BLADDER: Unremarkable. REPRODUCTIVE: Prostate gland seminal vesicles unremarkable. OSSEOUS STRUCTURES: No acute abnormality. OTHER: None. IMPRESSION: 1. Bilateral nephrolithiasis. Stone burden greater on the right compared to the left. No ureteric calcification or obstructive uropathy. 2. Hepatomegaly with borderline splenomegaly. Dictated by: Dictated on workstation # [id number]
[2019-12-23] MEDS: ENOXAPARIN 40 MG/0.4 ML (LOVENOX) SYR SC SCH (17:18)
[2019-12-23] MEDS ORDERED: OMEGA 3 (FISH OIL) 1000 MG CAP PO SCH (18:00)
--- NOTE | 2019-12-23 19:57 | CONSULTATION REPORT ---
DATE OF SERVICE: 12/23/2019 ATTENDING PHYSICIAN: Dr. Mckeon. SUMMARY: A 59-year-old white man admitted because of diabetic ketoacidosis and started on insulin drip and seems to improve. He was complaining of right flank pain intermittently and a CT scan of the abdomen and pelvis noncontrast and a KUB revealed bilateral renal stone with a 16 to 18 mm stone in the right side causing probably the symptom of the patient. No ureteral stones were observed. The patient has long history of kidney stones and multiple surgeries in the past. He is feeling better regarding the DKA patient is , has no children of his own. SOCIAL HISTORY: No smoking, no alcohol, no drugs. ALLERGIES: He is allergic to ASPIRIN, IBUPROFEN and MORPHINE and sign and seasonal allergies. PAST MEDICAL HISTORY: Surgery bardales had multiple pacemaker surgeries and stone surgeries. MEDICAL HISTORY: urolithiasis, atherosclerotic heart disease, arrhythmias, hypertension, migraines, gastroesophageal reflux disease, chronic diarrhea, osteoarthritis and of course the non-insulin dependent diabetes. FAMILY HISTORY: Unknown. PHYSICAL EXAMINATION: GENERAL: Well-nourished, well-developed, in no acute distress at the time of my examination. HEAD: Normocephalic. ENT: Unremarkable. NECK: Supple, no bruits. CHEST: Clear, nontender. HEART: Regular rate and rhythm, no murmur. ABDOMEN: Soft. There is no tenderness. EXTREMITIES: Lower extremity, no edema or cyanosis. NEUROLOGIC: Grossly intact. Oriented x3. EXTERNAL GENITALIA AND PROSTATE EXAM: Deferred at this point. The patient also had an ultrasound of his gallbladder revealed no pathology. His chest x-ray was unremarkable. IMPRESSION: 1. Bilateral renal stone bigger on the right side with right flank pain. 2. Non-insulin dependent diabetes with diabetic ketoacidosis. 3. Heart disease with hypercholesterolemia, hypertriglyceridemia and hypertension. PLAN: The patient could be dismissed any time from the urology standpoint. We will see him back at the office on Monday where we will plan on Monday when to perform insertion of a right stent and right ESWL the procedure was fully explained to the patient in details and will be reexplain with preops and instructions on Monday at the office at 1:00 p.m. Thank you for letting me participate in the care of this patient. We will follow with you. Job ID: [id number] DocumentID: [id number] Dictated Date: 12/23/2019 17:27:56 Operational Meteorologist Date: 12/23/2019 19:57:18 Dictated By: DENIZ NGO MD
[2019-12-23] MEDS: FENOFIBRATE 134 MG (LOFIBRA) CAPSULE PO SCH (20:01)
[2019-12-23 22:30] LABS: BUN/CREATININE RATIO 7; CARBON DIOXIDE 18 MMOL/L (21-32); CHLORIDE 104 MMOL/L (98-107); CREATININE SERUM 0.86 MG/DL (0.60-1.30); GFR ESTIMATED > 60; GLUCOSE 107 MG/DL (70-105); POTASSIUM 3.1 MMOL/L (3.6-5.0); SODIUM 137 MMOL/L (135-145)
[2019-12-24] MEDS: HYDROmorphone 2 MG/ML VIAL (DILAUDID) IV PRN ×4 (01:07→14:35)
[2019-12-24] MEDS: ONDANSETRON 4 MG/2 ML (SDV) Z0FRAN IV PRN ×2 (01:08→10:20)
[2019-12-24] MEDS: NS IV 1000 ML 1,000 ML IV SCH ×2 (02:30→11:15)
[2019-12-24 03:41] LABS: BASOPHILS % (AUTO) 1 % (0-10); EOSINOPHILS # (AUTO) 0.2 10^3/uL (0.0-0.3); EOSINOPHILS % (AUTO) 3 % (0-10); HEMATOCRIT 29 % (40-54); HEMOGLOBIN 9.4 g/dL (13.3-17.7); LYMPHOCYTES # (AUTO) 1.1 10^3/uL (1.0-4.0); LYMPHOCYTES % (AUTO) 22 % (12-44); MEAN CORPUSCULAR HEMOGLOBIN 29 pg (25-34); MEAN CORPUSCULAR HGB CONC 33 g/dL (32-36); MEAN CORPUSCULAR VOLUME 89 fL (80-99); MEAN PLATELET VOLUME 9.2 fL (9.0-12.2); MONOCYTES # (AUTO) 0.5 10^3/uL (0.0-1.0); MONOCYTES % (AUTO) 9 % (0-12); NEUTROPHILS # (AUTO) 3.1 10^3/uL (1.8-7.8); NEUTROPHILS % (AUTO) 64 % (42-75); PLATELET COUNT 175 10^3/uL (130-400); WHITE BLOOD COUNT 4.8 10^3/uL (4.3-11.0)
[2019-12-24 04:05] LABS: BUN/CREATININE RATIO 9; CALCIUM 7.8 MG/DL (8.5-10.1); CARBON DIOXIDE 19 MMOL/L (21-32); CHLORIDE 105 MMOL/L (98-107); CREATININE SERUM 0.81 MG/DL (0.60-1.30); GFR ESTIMATED > 60; GLUCOSE 94 MG/DL (70-105); MAGNESIUM 1.5 MG/DL (1.6-2.4); PHOSPHORUS 3.5 MG/DL (2.3-4.7); POTASSIUM 3.4 MMOL/L (3.6-5.0); SODIUM 138 MMOL/L (135-145)
--- NOTE | 2019-12-24 05:05 | Pulmonary Progress Note ---
Subjective Time Seen by a Provider: 04:59 Subjective/Events-last exam No complications noted. Sepsis Event Evaluation Height, Weight, BMI Height: 5'7.00" Weight: 187lbs. 0.5oz. 84.351941hp; 23.99 BMI Method:Stated Focused Exam Lactate Level 12/23/19 06:10: Lactic Acid Level 2.70*H 12/23/19 08:20: Lactic Acid Level 3.16*H 12/23/19 12:15: Lactic Acid Level 1.84 Exam Exam Vital Signs Date Time Temp Pulse Resp B/P (MAP) Pulse Ox O2 Delivery O2 Flow Rate FiO2 12/24/19 03:51 Room Air 12/24/19 01:00 82 12/24/19 00:00 Room Air 12/23/19 21:00 Room Air 12/23/19 20:00 Room Air 12/23/19 19:47 36.7 12/23/19 19:00 96 12/23/19 16:00 108 18 155/8 95 Room Air 12/23/19 16:00 Room Air 12/23/19 14:47 108 13 155/111 95 Room Air 12/23/19 12:42 108 12/23/19 12:21 Room Air 12/23/19 08:00 Room Air 12/23/19 08:00 36.0 105 18 157/86 92 Room Air 12/23/19 08:00 Room Air 12/23/19 06:51 94 I & O 12/24/19 07:00 Intake Total 2715 ml Output Total 2250 ml Balance 465 ml Height & Weight Height: 5'7.00" Weight: 187lbs. 0.5oz. 84.734762nu; 23.99 BMI Method:Stated General Appearance: No Apparent Distress, WD/WN HEENT: PERRL/EOMI, Pharynx Normal Neck: Normal Inspection, Supple Respiratory: Lungs Clear, Normal Breath Sounds, No Respiratory Distress Cardiovascular: Regular Rate, Rhythm, No Edema, No Murmur Capillary Refill: Less Than 3 Seconds Extremity: Normal Inspection, Non Tender, No Pedal Edema Neurologic/Psychiatric: Alert, Oriented x3, No Motor/Sensory Deficits, Normal Mood/Affect Skin: Normal Color, Warm/Dry Results Lab Laboratory Tests 12/22/19 13:55 12/22/19 21:49 12/23/19 03:10 12/23/19 14:10 12/23/19 21:59 12/24/19 03:05 Assessment/Plan Assessment/Plan Acute DKA -D/C DKA protocol and insulin gtt Hypertriglyceridemia -Repeat Hypomag and hypophos -replace BRANDI ARIAS DO Dec 24, 2019 05:05
[2019-12-24] MEDS: inSUlin ASPART (NovoLOG) 1 UNIT/0.01 ML (CHARGE PER UNIT) SC SCH ×6 (05:57→20:29)
[2019-12-24] MEDS: MAGNESIUM 1 GM/100 ML IVPB 100 ML IV SCH ×5 (05:58→09:15)
[2019-12-24] MEDS: SUCRALFATE 1 GM (CARAFATE) TAB PO SCH ×4 (05:58→20:21)
[2019-12-24] MEDS: POTASSIUM CL 10MEQ/50ML IVPB 50 ML IV SCH ×4 (06:01→10:20)
[2019-12-24] MEDS ORDERED: KCL 20 MEQ TAB (K-DUR) PO NR (08:30)
[2019-12-24] MEDS: OMEGA 3 (FISH OIL) 1000 MG CAP PO SCH ×2 (08:58→17:21)
[2019-12-24] MEDS: PANTOPRAZOLE 20 MG TABLET (PROTONIX) PO SCH (08:58)
[2019-12-24] MEDS ORDERED: lisINopril 40 MG (PRINIVIL) TABLET PO SCH (09:00)
[2019-12-24] MEDS: lisINopril 40 MG (PRINIVIL) TABLET PO SCH (09:02)
[2019-12-24] MEDS: FLUTICASONE NASAL SPRAY (FLONASE) 16 GM BTL NS SCH (09:03)
--- NOTE | 2019-12-24 09:15 | NUR ---
DR MERCEDES NOTIFIED THIS NURSE THAT PT MAY GO TO THE FOURTH FLOOR WITH NO TELE. HOUSE SUP. NOTIFIED.
[2019-12-24 14:15] LABS: BUN/CREATININE RATIO 6; CALCIUM 7.9 MG/DL (8.5-10.1); CARBON DIOXIDE 21 MMOL/L (21-32); CHLORIDE 103 MMOL/L (98-107); CREATININE SERUM 1.11 MG/DL (0.60-1.30); GFR ESTIMATED > 60; GLUCOSE 241 MG/DL (70-105); POTASSIUM 4.5 MMOL/L (3.6-5.0); SODIUM 135 MMOL/L (135-145)
[2019-12-24] MEDS ORDERED: ACETAMINOPHEN 325 MG TABLET PO PRN (15:15)
--- NOTE | 2019-12-24 15:21 | NUR ---
THIS NURSE TOOK PT DOWN VIA WHEELCHAIR WITH BELONGINGS TO FOURTH FLOOR. PEDRO LUIS RN AT BEDSIDE. CALL LIGHT WITHIN REACH. PT DENIES ANY NEEDS.
[2019-12-24] MEDS: ENOXAPARIN 40 MG/0.4 ML (LOVENOX) SYR SC SCH (17:22)
--- NOTE | 2019-12-24 18:03 | Progress Note - Hospitalist ---
Subjective HPI/CC On Admission Date Seen by Provider: Dec 24, 2019 Time Seen by Provider: 09:05 Pt is a 59yoCM with a PMH of HLD, HTN, and NIDDMII who presented to the ER due to abnormal labs. He states he was feeling poorly for a while and had his blood drawn by his PCP which showed a BS of >400 and triglycerides of 8249 with a to ritchie cholesterol of 1057. He complained of RUQ pain to the ER but to me his only complaint regarding pain is where his potassium is burning. Subjective/Events-last exam He says he did not sleep very well. He has been having some nausea. He has no other complaints or concerns. He is not having any pain. He denies trouble breathing. Focused Exam Lactate Level 12/23/19 06:10: Lactic Acid Level 2.70*H 12/23/19 08:20: Lactic Acid Level 3.16*H 12/23/19 12:15: Lactic Acid Level 1.84 Objective Exam Vital Signs Vital Signs Date Time Temp Pulse Resp B/P (MAP) Pulse Ox O2 Delivery O2 Flow Rate FiO2 12/24/19 15:46 36.7 94 18 155/94 96 Room Air 12/24/19 10:14 2.00 Capillary Refill : Less Than 3 Seconds General Appearance: No Apparent Distress, WD/WN Respiratory: Lungs Clear, Normal Breath Sounds, No Respiratory Distress Cardiovascular: Regular Rate, Rhythm, No Edema, No Murmur Gastrointestinal: Normal Bowel Sounds, Non Tender, Soft Extremity: Normal Inspection, Non Tender, No Pedal Edema Neurologic/Psychiatric: Alert, Oriented x3, No Motor/Sensory Deficits, Normal Mood/Affect Skin: Normal Color, Warm/Dry Results/Procedures Lab Laboratory Tests 12/23/19 21:59 12/24/19 03:05 12/24/19 13:55 Patient resulted labs reviewed. Imaging: Reviewed Imaging Report Assessment/Plan Assessment and Plan Assess & Plan/Chief Complaint Hypertriglyceridemia Hypercholesterolemia triglycerides down to 1146 today Transitioning off insulin gtt Statin, fenofibrate, fish oil Trend triglycerides DKA- resolved NIDDMII A1C 14.9% Increase to Levemir 15 units twice daily Add Novolog 5 units with meals SSI HTN Lisinopril DVT ppx: Lovenox Diagnosis/Problems Diagnosis/Problems (1) Hypertriglyceridemia Status: Acute (2) T2DM (type 2 diabetes mellitus) Status: Acute Qualifiers: Diabetes mellitus mcc insulin use: without mcc use Diabetes mellitus complication status: with hyperglycemia Qualified Codes: E11.65 - Type 2 diabetes mellitus with hyperglycemia (3) HTN (hypertension) Status: Acute Qualifiers: Hypertension type: essential hypertension Qualified Codes: I10 - Essential (primary) hypertension Clinical Quality Measures DVT/VTE Risk/Contraindication: Risk Factor Score Per Nursin RFS Level Per Nursing on Admit: 3=High ANNABELLA MERCEDES MD Dec 24, 2019 18:03
[2019-12-24] MEDS: FENOFIBRATE 134 MG (LOFIBRA) CAPSULE PO SCH (20:21)
[2019-12-25] MEDS: NS IV 1000 ML 1,000 ML IV SCH ×2 (00:35→03:12)
[2019-12-25 04:42] LABS: BASOPHILS % (AUTO) 1 % (0-10); EOSINOPHILS # (AUTO) 0.1 10^3/uL (0.0-0.3); EOSINOPHILS % (AUTO) 3 % (0-10); HEMATOCRIT 28 % (40-54); LYMPHOCYTES % (AUTO) 21 % (12-44); MEAN CORPUSCULAR HEMOGLOBIN 29 pg (25-34); MEAN CORPUSCULAR HGB CONC 32 g/dL (32-36); MEAN CORPUSCULAR VOLUME 91 fL (80-99); MEAN PLATELET VOLUME 9.2 fL (9.0-12.2); MONOCYTES # (AUTO) 0.4 10^3/uL (0.0-1.0); MONOCYTES % (AUTO) 9 % (0-12); NEUTROPHILS # (AUTO) 3.1 10^3/uL (1.8-7.8); NEUTROPHILS % (AUTO) 65 % (42-75); PLATELET COUNT 173 10^3/uL (130-400); WHITE BLOOD COUNT 4.8 10^3/uL (4.3-11.0)
[2019-12-25 05:06] LABS: CHLORIDE 105 MMOL/L (98-107); POTASSIUM 4.4 MMOL/L (3.6-5.0); SODIUM 139 MMOL/L (135-145)
[2019-12-25 05:07] LABS: CALCIUM 8.1 MG/DL (8.5-10.1)
[2019-12-25 05:08] LABS: GLUCOSE 161 MG/DL (70-105); TRIGLYCERIDES 704 MG/DL (<150)
[2019-12-25 05:09] LABS: CARBON DIOXIDE 21 MMOL/L (21-32)
[2019-12-25 05:12] LABS: BUN/CREATININE RATIO 10; CREATININE SERUM 0.91 MG/DL (0.60-1.30); GFR ESTIMATED > 60
[2019-12-25 05:14] LABS: MAGNESIUM 1.8 MG/DL (1.6-2.4)
[2019-12-25] MEDS: inSUlin ASPART (NovoLOG) 1 UNIT/0.01 ML (CHARGE PER UNIT) SC SCH ×5 (05:45→11:39)
[2019-12-25] MEDS: SUCRALFATE 1 GM (CARAFATE) TAB PO SCH ×2 (06:21→11:38)
[2019-12-25] MEDS: OMEGA 3 (FISH OIL) 1000 MG CAP PO SCH (07:56)
[2019-12-25] MEDS: lisINopril 40 MG (PRINIVIL) TABLET PO SCH (07:58)
[2019-12-25] MEDS: PANTOPRAZOLE 20 MG TABLET (PROTONIX) PO SCH (07:58)
[2019-12-25] MEDS: FLUTICASONE NASAL SPRAY (FLONASE) 16 GM BTL NS SCH (07:58)
[2019-12-25] MEDS ORDERED: FENO134C PO (09:39)
[2019-12-25] MEDS ORDERED: INSU100I10 SQ ×2 (09:39→09:49)
[2019-12-25] MEDS ORDERED: ATOR80TA76 PO (09:39)
[2019-12-25] MEDS ORDERED: OMG1KC PO (09:39)
[2019-12-25] MEDS ORDERED: LISI40TA PO (09:39)
[2019-12-25] MEDS ORDERED: INSU100I23 SQ ×2 (09:39→09:49)
[2019-12-25] MEDS ORDERED: OXC5T PO ×2 (09:39→09:49)
[2019-12-25] MEDS ORDERED: INSU100I29 SQ (10:56)
[2019-12-25] MEDS ORDERED: INSU100I14 SQ (10:56)
--- NOTE | 2019-12-25 12:40 | NUR ---
CM/SS: Visited with pt as to assistance for his medications. Pt will receive assistance through the PALS Voucher/340b program. Pt is in the spend down period of his current [facility] Medicaid and is needing to pay full cost for his scripts. Pt IS able to pay $44.00 towards the cost of the medications through the PALS program. 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 Pt is appreciative of the assistance for his medication. Pt is given the paper to give to the pharmacy, and is wished well.
[2019-12-25 14:32] VITALS: BP 157/85
--- NOTE | 2019-12-25 17:11 | Discharge Summary ---
Discharge Summary Hospital Course Was the Problem List Reviewed?: Yes Problems/Dx: (1) Hypertriglyceridemia Status: Acute (2) T2DM (type 2 diabetes mellitus) Status: Acute Qualifiers: Qualified Codes: E11.65 - Type 2 diabetes mellitus with hyperglycemia (3) HTN (hypertension) Status: Acute Qualifiers: Qualified Codes: I10 - Essential (primary) hypertension Hospital Course Date of Admission: Dec 20, 2019 at 17:17 Admission Diagnosis: diabetic ketoacidosis Family Physician/Provider: Alfredo Das DO Date of Discharge: 12/25/19 Discharge Diagnosis: diabetic ketoacidosis, hypertriglyceridemia, kidney stone Hospital Course: John Stauffer is a 59-year-old male who was admitted with diabetic ketoacidosis. He was also found to have a triglyceride level of greater than 8000. He was started on the DKA protocol with IV fluids and insulin. He was started on basal bolus insulin with Levemir 15 units twice daily and NovoLog 5 units with meals plus sliding scale. His triglyceride levels improved to around 700 at the time of discharge. He was started on Lipitor, fenofibrate, and fish oil for his h ypertriglyceridemia. His course was complicated by a kidney stone. Urology was consulted and recommended outpatient follow-up for likely stent placement. He was given a handful oxycodone for pain related to his kidney stone. He will follow-up with his primary care physician. He should follow-up with cardiology and urology as scheduled. Labs and Pending Lab Test: Laboratory Tests 12/24/19 20:14: Glucometer 245H 12/25/19 04:17: White Blood Count 4.8, Red Blood Count 3.13L, Hemoglobin 9.0L, Hematocrit 28L, Mean Corpuscular Volume 91, Mean Corpuscular Hemoglobin 29, Mean Corpuscular Hemoglobin Concent 32, Red Cell Distribution Width 15.9H, Platelet Count 173, Mean Platelet Volume 9.2, Immature Granulocyte % (Auto) 2, Neutrophils (%) (Auto) 65, Lymphocytes (%) (Auto) 21, Monocytes (%) (Auto) 9, Eosinophils (%) (Auto) 3, Basophils (%) (Auto) 1, Neutrophils # (Auto) 3.1, Lymphocytes # (Auto) 1.0, Monocytes # (Auto) 0.4, Eosinophils # (Auto) 0.1, Basophils # (Auto) 0.0, Immature Granulocyte # (Auto) 0.1, Sodium Level 139, Potassium Level 4.4, Chloride Level 105, Carbon Dioxide Level 21, Anion Gap 13, Blood Urea Nitrogen 9, Creatinine 0.91, Estimat Glomerular Filtration Rate > 60, BUN/Creatinine Ratio 10, Glucose Level 161H, Calcium Level 8.1L, Magnesium Level 1.8, Triglycerides Level 704#H 12/25/19 05:10: Glucometer 153H 12/25/19 10:57: Glucometer 214H Home Meds Active Novolog Flexpen (Insulin Aspart) 300 Units/3 Ml Solution 5 Units SQ AC 90 Days Levemir Flextouch (Insulin Detemir) 100 Unit/1 Ml Insuln.pen 30 Unit SQ HS 90 Days Oxyir Tablet (Oxycodone HCl) 5 Mg Tab 5 Mg PO Q4H PRN 7 Days Lisinopril 40 Mg Tablet 40 Mg PO DAILY 30 Days Fish Oil 1,000 mg Capsule ([place] 3 Polyunsat Fatty Acids) 1,000 Mg Cap 4,000 Mg PO BID WITH MEALS 30 Days Atorvastatin Calcium 80 Mg Tablet 80 Mg PO HS 30 Days Fenofibrate (Fenofibrate,Micronized) 134 Mg Capsule 134 Mg PO HS 30 Days Reported Coricidin Hbp Cough & Cold Tab (Dextromethorphan HBr/Chlor-Mal) 1 Each Tablet 1- 2 Each PO UD PRN Tums Ultra (Calcium Carbonate) 400 Mg Tab.chew 400-800 Mg PO PRN PRN Zyrtec (Cetirizine HCl) 10 Mg Tablet 10 Mg PO DAILY Flonase Allergy Relief (Fluticasone Propionate) 9.9 Ml Penn.susp 2 Penn NS DAILY Tylenol Arthritis (Acetaminophen) 650 Mg Tablet.er 1,300 Mg PO Q8H PRN Tylenol Sinus Severe Caplet (Guaifen/Phenyleph/Acetaminophn) 1 Each Tablet 1-2 Each PO Q6H PRN Metformin HCl 1,000 Mg Tablet 1,000 Mg PO BID Assessment/Pt Instructions Take medications as prescribed. Follow up with her primary care physician. Follow up with cardiology. Follow-up with urology. Discharge Planning: <30 minutes discharge planning Discharge Instructions Discharge Diet: ADA Diet Activity as Tolerated: Yes Consultations urology Discharge Physical Examination Vital Signs Vital Signs Date Time Temp Pulse Resp B/P (MAP) Pulse Ox O2 Delivery O2 Flow Rate FiO2 12/25/19 14:32 36.4 96 20 157/85 96 Room Air 2.00 General Appearance: No Apparent Distress, WD/WN HEENT: PERRL/EOMI, Pharynx Normal Respiratory: Lungs Clear, Normal Breath Sounds, No Respiratory Distress Cardiovascular: Regular Rate, Rhythm, No Edema, No Murmur Gastrointestinal: Normal Bowel Sounds, Non Tender, Soft Extremity: Normal Inspection, Non Tender, Pedal Edema Skin: Normal Color, Warm/Dry Neurologic/Psychiatric: Alert, Oriented x3, No Motor/Sensory Deficits, Normal Mood/Affect Allergies: Coded Allergies: aspirin (Verified Allergy, Severe, HX STOMACHS ULCER, 07/09/19) ibuprofen (Verified Allergy, Intermediate, HX STOMACH ULCERS, 07/09/19) morphine (Verified Allergy, Unknown, 07/09/19) Copy Copies To 1: ALFREDO DAS DO Discharge Summary Date of Admission Dec 20, 2019 at 17:17 Date of Discharge Dec 25, 2019 at 14:35 Discharge Date: Dec 25, 2019 Discharge Time: 14:35 Admission Diagnosis Hypertriglyceridemia Consults/Procedures Consulations urology Discharge Diagnosis diabetic ketoacidosis, hypertriglyceridemia, kidney stone (1) Hypertriglyceridemia Status: Acute (2) T2DM (type 2 diabetes mellitus) Status: Acute Qualifiers: Qualified Codes: E11.65 - Type 2 diabetes mellitus with hyperglycemia (3) HTN (hypertension) Status: Acute Qualifiers: Qualified Codes: I10 - Essential (primary) hypertension Clinical Quality Measures DVT/VTE Risk/Contraindication: Risk Factor Score Per Nursin RFS Level Per Nursing on Admit: 3=High ANNABELLA MERCEDES MD Dec 25, 2019 17:07
== END 2019-12-25 14:35 | disposition home or self-care (01) | DRG 638 ==
LOC: EDUNIT# 14:09 → ER 14:10 → CSD 17:17 → ICU 12-23 18:52 → 4TH 12-24 15:00
PROVIDERS: ADMIT Family Medicine; ATTEND Family Medicine
DX: E11.10 Type 2 diabetes mellitus with ketoacidosis without coma (principal); E87.1 Hypo-osmolality and hyponatremia; E78.1 Pure hyperglyceridemia; E87.5 Hyperkalemia; E78.00 Pure hypercholesterolemia, unspecified; I10 Essential (primary) hypertension; J30.2 Other seasonal allergic rhinitis; G43.909 Migraine, unspecified, not intractable, without status migrainosus; K21.9 Gastro-esophageal reflux disease without esophagitis; K52.9 Noninfective gastroenteritis and colitis, unspecified; N20.0 Calculus of kidney; M54.9 Dorsalgia, unspecified; M19.91 Primary osteoarthritis, unspecified site; H54.40 Blindness, one eye, unspecified eye; Z79.84 Long term (current) use of oral hypoglycemic drugs
CPT/HCPCS: 36415; 71045; 74018; 74176; 76705; 80048; 80053; 80061; 81000; 82010; 82962; 83036; 83605; 83690; 83735; 84100; 84478; 84484; 85007; 85025; 85027; 93005; 96361; 96365; 96366; 96375

== ENCOUNTER → 2019-12-20 | Outpatient (CLI) | payer MEDICAID ==
[~2019-12-20] MED LIST changes: +ACET-2650 PO; +CALC10009 PO; +CETI10TA49 PO; +DEXT1TAB3 PO; +FLUT9.9S NS; +GUAI-836 PO; +LISI1TAB46 PO
[2019-12-20 09:20] LABS: HEMOGLOBIN 15.8 g/dL (13.3-17.7); WHITE BLOOD COUNT 7.3 10^3/uL (4.3-11.0)
[2019-12-20 09:32] LABS: BILIRUBIN,URINE NEGATIVE (NEGATIVE); CLARITY,URINE CLEAR; COLOR,URINE YELLOW; GLUCOSE, URINE (UA) 3+ (NEGATIVE); KETONES,URINE 1+ (NEGATIVE); LEUKOCYTE ESTERASE ,URINE NEGATIVE (NEGATIVE); NITRITE,URINE NEGATIVE (NEGATIVE); PROTEIN,URINE 2+ (NEGATIVE)
[2019-12-20 09:42] LABS: BACTERIA,URINE NEGATIVE /HPF
[2019-12-20 09:53] LABS: ALBUMIN 4.7 GM/DL (3.2-4.5); BILIRUBIN,TOTAL 0.7 MG/DL (0.1-1.0); BUN/CREATININE RATIO 11; CALCIUM 9.9 MG/DL (8.5-10.1); CHLORIDE 89 MMOL/L (98-107); CREATININE SERUM 1.08 MG/DL (0.60-1.30); GFR ESTIMATED > 60; HDL CHOLESTEROL 22 MG/DL (40-60); POTASSIUM 3.7 MMOL/L (3.6-5.0)
[2019-12-20 10:24] LABS: CARBON DIOXIDE 12 MMOL/L (21-32); CHOLESTEROL 1057 MG/DL (< 200); SODIUM 126 MMOL/L (135-145)
[2019-12-20 10:52] LABS: ALANINE AMINOTRANSFERASE 35 U/L (0-55); TRIGLYCERIDES 8249 MG/DL (<150)
[2019-12-20 11:00] LABS: ALKALINE PHOSPHATASE 109 U/L (40-136)
[2019-12-20 11:01] LABS: GLUCOSE 400 MG/DL (70-105)
== END ==
LOC: LAB 08:46
PROVIDERS: ATTEND Family Medicine
DX: E11.9 Type 2 diabetes mellitus without complications (principal); I10 Essential (primary) hypertension
CPT/HCPCS: 80053; 80061; 81000; 83036; 85027; G0103; 36415; 84153

== ENCOUNTER 2019-12-30 13:35 | Outpatient (RCR) | payer MEDICAID ==
[~2019-12-30] VITALS: Ht 171 cm; Wt 77.3 kg
[~2019-12-30 13:35] MED LIST changes: +ACET-2650 PO; +ATOR80TA76 PO; +CALC10009 PO; +CETI10TA49 PO; +DEXT1TAB3 PO; +FENO134C PO; +FLUT9.9S NS; +GUAI-836 PO; +INSU100I10 SQ; +INSU100I14 SQ; +INSU100I23 SQ; +INSU100I29 SQ; +LISI1TAB46 PO; +LISI40TA PO; +OMG1KC PO; +OXC5T PO
[2019-12-31] MEDS ORDERED: TMSL.4C PO (13:21)
[2019-12-31] MEDS ORDERED: PHEN-640 PO (13:21)
[2019-12-31] MEDS ORDERED: TRAM50TA3 PO (13:21)
[2019-12-31] MEDS ORDERED: NITR-65 PO (13:21)
== END 2019-12-30 15:44 | disposition home or self-care (01) ==
LOC: PREOP 13:35
PROVIDERS: ATTEND Urology
DX: Z01.818 Encounter for other preprocedural examination (principal)

== ENCOUNTER 2019-12-31 08:02 | Day surgery (SDC) | payer MEDICAID ==
[2019-12-31] VITALS (10 sets, daily range): BP systolic 133–149; BP diastolic 75–97
[~2019-12-31] VITALS: Ht 171 cm; Wt 77.3 kg
--- NOTE | 2019-12-31 07:07 | Progress Note-Pre Operative ---
Pre-Operative Progress Note H&P Reviewed The H&P was reviewed, patient examined and no changes noted. Date Seen by Provider: Dec 31, 2019 Time Seen by Provider: 09:11 Date H&P Reviewed: Dec 31, 2019 Time H&P Reviewed: 09:11 Pre-Operative Diagnosis: RT RENAL STONE DENIZ NGO MD Dec 31, 2019 07:07
[2019-12-31] MEDS ORDERED: cefTRIAXone FOR IV USE 1,000 MG in WATER (STERILE) FOR INJECTION 10 ML IV ONE (08:15)
--- NOTE | 2019-12-31 08:29 | Diagnostic Imaging Report ---
EXAMINATION: Abdomen 1 view HISTORY: Preoperative evaluation, right ureteral stone. COMPARISON: Abdominal radiograph 12/23/2019 FINDINGS: There is moderate amount of gas and stool throughout the colon. Nonobstructive bowel gas pattern. Bilateral calcifications overlying the kidneys measuring up to 2.0 cm on the right. Unchanged 0.2 cm calcifications overlying the left hemipelvis which could be secondary to vascular calcifications or phleboliths. The osseous structures are intact. IMPRESSION: 1. Stable bilateral calcifications overlying the kidneys measuring up to 2.0 cm on the right. 2. Unchanged 0.2 cm calcification overlying the left hemipelvis. Dictated by: Dictated on workstation # [id number]
[2019-12-31] MEDS ORDERED: CATHETER FLUSH 10 ML SYR IV PRN (08:30)
[2019-12-31] MEDS: LACTATED RINGERS 1,000 ML IV PRN ×2 (08:51→11:00)
--- NOTE | 2019-12-31 09:40 | Progress Note-Post Operative ---
Post-Operative Progess Note Surgeon (s)/Tool Pusher (s) Surgeon DENIZ NGO MD Tool Pusher: NONE Pre-Operative Diagnosis RT RENAL STONE Post-Operative Diagnosis SAME Procedure & Operative Findings Date of Procedure 12/31/19 Procedure Performed/Findings CYSTOSCOPY WITH INSERTION OF RT URETERAL STENT AND RT ESWL Anesthesia Type GENERAL Estimated Blood Loss Estimated blood loss (mL): NONE Specimens/Packing Specimens Removed NONE Packing: NONE DENIZ NGO MD Dec 31, 2019 09:40
--- NOTE | 2019-12-31 09:42 | Discharge Inst-Urology ---
Discharge Inst-Urology Reconcile Patient Problems Problems Reviewed?: Yes Final Diagnosis RT RENAL STONE Patient Instructions/Follow Up Plan/Assessment/Instructions Please make appointment to been seen in office Friday 01/12, KUB prior to it. KUB on way home Post ESWL instructions Increase oral fluids for 48 hours and then as needed. Diet and Activity as tolerated. If questions or concerns contact your physician Or seek help at emergency department. DENIZ NGO MD Dec 31, 2019 09:42
[2019-12-31] MEDS ORDERED: MIDAZOLAM 2 MG/2 ML (VERSED) VIAL ONE (10:25)
[2019-12-31] MEDS ORDERED: fentaNYL INJECTION 100 MCG/2 ML AMP ONE ×2 (10:25→11:46)
[2019-12-31] MEDS ORDERED: PHENYLEPHRINE 100 MCG/ML 10 ML (ANESTHESIA) SYR ONE (11:03)
[2019-12-31] MEDS ORDERED: SEVOFLURANE (ULTANE) 15 ML INHAL SOLN ONE (11:03)
[2019-12-31] MEDS ORDERED: ONDANSETRON 4 MG/2 ML (SDV) Z0FRAN ONE ×2 (11:03→11:46)
[2019-12-31] MEDS ORDERED: LIDOCAINE PF 2% 5 ML (XYLOCAINE) VIAL ONE (11:03)
[2019-12-31] MEDS ORDERED: proPOfol 200 MG/20 ML (DIPRIVAN) VIAL IV ONE (11:03)
[2019-12-31] MEDS ORDERED: FUROSEMIDE 40 MG/4 ML INJ (LASIX) ONE (11:26)
[2019-12-31] MEDS ORDERED: ONDANSETRON 4 MG/2 ML (SDV) Z0FRAN IVP PRN (12:00)
[2019-12-31] MEDS ORDERED: fentaNYL INJECTION 100 MCG/2 ML AMP IVP ONE (12:00)
--- NOTE | 2019-12-31 12:27 | Anesthesia-General Post-Op ---
General Patient Condition Mental Status/LOC: Same as Preop Cardiovascular: Satisfactory Nausea/Vomiting: Absent Respiratory: Satisfactory Pain: Controlled Complications: Absent Post Op Complications Complications None Follow Up Care/Instructions Patient Instructions None needed. Anesthesia/Patient Condition Patient Condition Patient is doing well, had some minimal nausea but better with zofran, stable vital signs, no apparent adverse anesthesia problems. MINI MAY DO Dec 31, 2019 12:27
[2019-12-31] MEDS ORDERED: TRAM50TA3 PO (13:21)
[2019-12-31] MEDS ORDERED: PHEN-640 PO (13:21)
[2019-12-31] MEDS ORDERED: TMSL.4C PO (13:21)
[2019-12-31] MEDS ORDERED: NITR-65 PO (13:21)
--- NOTE | 2019-12-31 13:57 | Diagnostic Imaging Report ---
EXAMINATION: Abdomen 1 view HISTORY: POST ESWL. COMPARISON: Abdominal radiograph of 12/31/2019. FINDINGS: There is moderate amount of gas and stool throughout the colon. Nonobstructive bowel gas pattern. Interval placement of a right double-J ureteral stent. A 1.7 cm calcification overlying the right kidney is unchanged. The 0.9 cm calcification seen previously is no longer visualized. The osseous structures are intact. IMPRESSION: Interval placement of a double-J ureteral stent. The 1.7 cm calcification overlying the right kidney is unchanged. The 0.9 cm calcification is not seen on this radiograph. Dictated by: Dictated on workstation # [id number]
--- NOTE | 2019-12-31 16:26 | OPERATIVE REPORT ---
DATE OF SERVICE: 12/31/2019 PREOPERATIVE DIAGNOSIS: Right renal stone. POSTOPERATIVE DIAGNOSIS: Right renal stone. OPERATIONS PERFORMED: Cystoscopy with insertion of right ureteral stent and right ESWL. SURGEON: Antolin Ngo MD. ANESTHESIA: General. COMPLICATIONS: None. DESCRIPTION OF PROCEDURE: Under satisfactory general anesthesia and the patient in lithotomy position, genitalia were prepped and draped in the usual sterile fashion. Cystoscope was introduced under vision. The anterior urethra was normal. The prostate was mildly enlarged. The bladder neck was open. Bladder revealed some mild trabeculations. Ureteric orifices are normal in shape, size and configuration with clear effluxes. No foreign body, bladder tumor or stone visualized. Using the foroblique lens, I passed a 6-Portuguese 26 cm double-J stent guided fluoroscopically all the way up to the right renal pelvis. The guidewire was removed and the stent was seen jetting nicely proximally fluoroscopically and distally endoscopically. The bladder was evacuated and the cystoscope was removed. The patient was put supine on the ESWL table and the stone was localized. Shocks were delivered at kV of 6, a total of 3000 shocks fragmentation of the stone. The patient received 40 mg of Lasix and 30 mg of Toradol IV at the end of the procedure. He tolerated the procedure and anesthesia well and was sent to recovery room in stable condition. PLAN: Re-ESWL again on 01/15/2020 when the machine comes back. The patient was aware of that preoperatively and other options were given as well. Job ID: [id number] DocumentID: [id number] Dictated Date: 12/31/2019 11:27:02 Liner Checker Date: 12/31/2019 16:25:20 Dictated By: ANTOLIN NGO MD
== END 2019-12-31 13:50 | disposition home or self-care (01) ==
LOC: SDC 08:02
PROVIDERS: ATTEND Urology
DX: N20.0 Calculus of kidney (principal); I11.0 Hypertensive heart disease with heart failure; I25.10 Atherosclerotic heart disease of native coronary artery without angina pectoris; E78.5 Hyperlipidemia, unspecified; M06.9 Rheumatoid arthritis, unspecified; E11.9 Type 2 diabetes mellitus without complications; K21.9 Gastro-esophageal reflux disease without esophagitis; M19.90 Unspecified osteoarthritis, unspecified site; E78.1 Pure hyperglyceridemia; K52.9 Noninfective gastroenteritis and colitis, unspecified; E78.00 Pure hypercholesterolemia, unspecified; H54.40 Blindness, one eye, unspecified eye; Z79.84 Long term (current) use of oral hypoglycemic drugs; Z79.82 Long term (current) use of aspirin; Z20.828 Contact with and (suspected) exposure to other viral communicable diseases; Z88.5 Allergy status to narcotic agent; Z88.6 Allergy status to analgesic agent; Z11.2 Encounter for screening for other bacterial diseases
CPT/HCPCS: 50590; 52332; 74018; 82962; 87081; C2625; U0002; 87635

== ENCOUNTER → 2020-01-13 | Outpatient (CLI) | payer MEDICAID ==
[~2020-01-13] MED LIST changes: +NITR-65 PO; +PHEN-640 PO; +TMSL.4C PO; +TRAM50TA3 PO
--- NOTE | 2020-01-13 08:45 | Diagnostic Imaging Report ---
INDICATION: Right renal stones status post stent and lithotripsy, pain. COMPARISON: 12/31/2019. TECHNIQUE: Two radiographs of the abdomen are dated 01/13/2020. FINDINGS: The right-sided ureteral stent is again identified in unchanged positioning since the prior examination. The 1.5 cm calcification overlying the inferior pole of the right renal shadow is again identified. This may be slightly more inferiorly positioned compared to the prior examination. An additional 0.6 cm calculus overlying the inferior pole of the right kidney is again noted, appearing stable. No new calcifications along the right ureteral stent. No definite abnormal calcifications overlying the left renal shadow. Nonobstructive bowel gas pattern. No free air. No acute osseous abnormality. IMPRESSION: Two right renal calculi are again identified with the largest 1.5 cm calculus appearing slightly more inferiorly positioned when compared to the prior exam. Dictated by: Dictated on workstation # [id number]
== END ==
LOC: RAD 07:53
PROVIDERS: ATTEND Urology
DX: N20.0 Calculus of kidney (principal); Z20.828 Contact with and (suspected) exposure to other viral communicable diseases; Z98.890 Other specified postprocedural states
CPT/HCPCS: 74018

== ENCOUNTER 2020-02-21 08:52 | Emergency (ER) | payer MEDICAID ==
[~2020-02-21] VITALS: Ht 170 cm; Wt 79.3 kg
[2020-02-21] MEDS ORDERED: PANTOPRAZOLE 40 MG (PROTONIX) VIAL IV ONE (09:30)
[2020-02-21] MEDS ORDERED: KETOROLAC 30 MG/ML VIAL IVP ONE (09:30)
[2020-02-21 09:41] LABS: BILIRUBIN,URINE NEGATIVE (NEGATIVE); CLARITY,URINE CLOUDY; COLOR,URINE YELLOW; GLUCOSE, URINE (UA) 3+ (NEGATIVE); KETONES,URINE NEGATIVE (NEGATIVE); LEUKOCYTE ESTERASE ,URINE 1+ (NEGATIVE); NITRITE,URINE NEGATIVE (NEGATIVE); PH,URINE 5.5 (5-9); PROTEIN,URINE 3+ (NEGATIVE)
[2020-02-21 09:52] LABS: BACTERIA,URINE FEW /HPF; RBC,URINE >100 /HPF; WBC,URINE TNTC /HPF; YEAST,URINE MODERATE /HPF
[2020-02-21] MEDS ORDERED: cefTRIAXone FOR IV USE 1,000 MG in WATER (STERILE) FOR INJECTION 10 ML IV ONE (10:00)
[2020-02-21 10:03] LABS: BASOPHILS % (AUTO) 0 % (0-10); EOSINOPHILS # (AUTO) 0.2 10^3/uL (0.0-0.3); EOSINOPHILS % (AUTO) 2 % (0-10); HEMATOCRIT 36 % (40-54); HEMOGLOBIN 12.2 g/dL (13.3-17.7); LYMPHOCYTES # (AUTO) 1.5 10^3/uL (1.0-4.0); LYMPHOCYTES % (AUTO) 13 % (12-44); MEAN CORPUSCULAR HEMOGLOBIN 28 pg (25-34); MEAN CORPUSCULAR HGB CONC 34 g/dL (32-36); MEAN CORPUSCULAR VOLUME 84 fL (80-99); MEAN PLATELET VOLUME 9.9 fL (9.0-12.2); MONOCYTES % (AUTO) 9 % (0-12); NEUTROPHILS # (AUTO) 8.5 10^3/uL (1.8-7.8); NEUTROPHILS % (AUTO) 75 % (42-75); PLATELET COUNT 350 10^3/uL (130-400); WHITE BLOOD COUNT 11.3 10^3/uL (4.3-11.0)
[2020-02-21 10:14] LABS: ALBUMIN 4.6 GM/DL (3.2-4.5); CHLORIDE 97 MMOL/L (98-107); POTASSIUM 4.1 MMOL/L (3.6-5.0); SODIUM 137 MMOL/L (135-145)
[2020-02-21 10:15] LABS: CALCIUM 10.5 MG/DL (8.5-10.1)
[2020-02-21 10:16] LABS: GLUCOSE 220 MG/DL (70-105); TOTAL PROTEIN 8.7 GM/DL (6.4-8.2)
[2020-02-21 10:18] LABS: BILIRUBIN,TOTAL 0.5 MG/DL (0.1-1.0); CARBON DIOXIDE 25 MMOL/L (21-32)
[2020-02-21 10:20] LABS: ALKALINE PHOSPHATASE 145 U/L (40-136); CREATININE SERUM 1.21 MG/DL (0.60-1.30); GFR ESTIMATED > 60
[2020-02-21 10:21] LABS: BUN/CREATININE RATIO 14
[2020-02-21 10:23] LABS: ALANINE AMINOTRANSFERASE 20 U/L (0-55)
--- NOTE | 2020-02-21 11:52 | Diagnostic Imaging Report ---
CT ABD/PELVIS WO(KIDNEY STONE) TECHNIQUE: Unenhanced CT imaging of the abdomen and pelvis was performed. 2-D reformats are created and submitted for interpretation. Automatic exposure controls were utilized to optimize patient dose. INDICATION: Right flank pain. Recent nephroureteral stent placement. COMPARISON: CT abdomen and pelvis of 12/23/2019. FINDINGS: Evaluation of the abdominal viscera is mildly limited without contrast. Lower chest: The lung bases are clear. No pericardial or pleural effusion. Peritoneum: No free intraperitoneal air or fluid. Liver and biliary system: Unenhanced liver is normal. The gallbladder is normal. No biliary duct dilation. Spleen and Pancreas: Spleen is normal. Unenhanced pancreas is grossly normal. Adrenals: Normal. tract: Right-sided nephroureteral stent has its proximal portion coiled in the renal pelvis and its distal aspect coiled within the urinary bladder. There is air present in the urinary bladder and renal pelvis. There remains a 10 mm nonobstructing stone in the lower pole of the right kidney. There are also punctate 2 mm fragments of mineralization in the mid aspect of the right kidney. No right-sided hydronephrosis. Stranding is present around the right ureter. No left renal or ureteral stones. Prostate is not enlarged. GI tract: Stomach is decompressed. No bowel obstruction. No pericolonic inflammatory changes. Normal appendix. Vasculature and Lymph nodes: Normal caliber aorta. No abdominal or pelvic lymphadenopathy. Musculoskeletal: No concerning osseous lesion. IMPRESSION: 1. Well-positioned right nephroureteral stent. There is air within the renal pelvis and urinary bladder which may be due to recent procedure. Correlation with urinalysis for infection is advised. 2. There remain nonobstructing stones in the right kidney, the largest measuring 10 mm. Dictated by: Dictated on workstation # [id number]
[2020-02-21] MEDS ORDERED: CEFD300C3 PO (11:59)
[2020-02-21] MEDS ORDERED: ONDA8TAB13 PO (11:59)
--- NOTE | 2020-02-21 11:59 | ED GU-Male ---
General Chief Complaint: Abdominal/GI Problems Stated Complaint: BACK PAIN,RLQ PAIN Nursing Triage Note: PT PRESENTS TO ED VIA POV FROM HOME WITH COMPLAINTS R FLANK PAIN AND TROUBLE WITH URINATION X 3 DAYS. PT REPORTS HE HAD A LITHROTRIPSY AND R URETER STENT PLACED BY [facility] ON 02/12 AFTER HIS ON PLACED IN DECEMBER BY JENI FAILED. Source: patient, old records History of Present Illness Date Seen by Provider: Feb 23, 2020 Time Seen by Provider: 09:20 Initial Comments PT ARRIVES VIA POV FROM HOME C/O RIGHT FLANK AND RIGHT LOWER ABDOMINAL PAIN AND SOME DIFFICULTY URINATING/"DRIBBLING" X 3 DAYS PT HAS HISTORY OF KIDNEY STONES AND HAD CYSTOSCOPY, RIGHT URETERAL STENT AND LITHOTRIPSY DONE BY DR. NGO ON 12/31/[address] UP WITH DR. NGO AND REMOVED THE STENT [facility] AND HAD AN APPOINTMENT THIS PAST MONDAY WITH [facility], AND WAS GIVEN RX FOR ANTIBIOTIC, BUT HAD NAUSEA AND VOMITING AFTER THE FIRST DOSE, SO HE DID NOT TAKE ANY MORE. HE HAS NOT ATTEMPTED TO CONTACT DR. NGO OR [facility] UROLOGIST AT ANY TIME FOR THIS PROBLEM HAS HYDROCODONE AT HOME, AND IT HELPS A LITTLE, BUT HAS NOT TAKEN ANY TODAY. NO FEVER NO FURTHER NAUSEA/VOMITING. PCP:DR. DAS UROLOGIST: DR. NGO, ALSO SEES [facility]. Allergies and Home Medications Allergies Coded Allergies: aspirin (Verified Allergy, Severe, HX STOMACHS ULCER, 07/09/19) ibuprofen (Verified Allergy, Intermediate, HX STOMACH ULCERS, 07/09/19) morphine (Verified Allergy, Unknown, 07/09/19) Home Medications Acetaminophen 650 Mg Tablet.er, 1,300 MG PO Q8H PRN for PAIN-MILD (1-4), (Reported) Atorvastatin Calcium 80 Mg Tablet, 80 MG PO HS Prescribed by: ANNABELLA MERCEDES on 12/25/19 0939 Calcium Carbonate 400 Mg Tab.chew, 400-800 MG PO PRN PRN for HEARTBURN, (Reported) Cefdinir 300 Mg Capsule, 300 MG PO BID Prescribed by: COLLEEN PAZ on 02/21/20 1159 Cetirizine HCl 10 Mg Tablet, 10 MG PO DAILY, (Reported) Dextromethorphan HBr/Chlor-Mal 1 Each Tablet, 1-2 EACH PO UD PRN for COUGH/COLD SYMPTOMS, (Reported) Fenofibrate,Micronized 134 Mg Capsule, 134 MG PO HS Prescribed by: ANNABELLA MERCEDES on 12/25/19 09 Fluticasone Propionate 9.9 Ml [place].susp, 2 SPRAY NS DAILY, (Reported) Guaifen/Phenyleph/Acetaminophn 1 Each Tablet, 1-2 EACH PO Q6H PRN for CONGESTION, (Reported) Insulin Aspart 300 Units/3 Ml Solution, 5 UNITS SQ AC Prescribed by: ANNABELLA MERCEDES on 12/25/19 105 Insulin Detemir 100 Unit/1 Ml Insuln.pen, 30 UNIT SQ HS Prescribed by: ANNABELLA MERCEDES on 12/25/19 105 Lisinopril 40 Mg Tablet, 40 MG PO DAILY Prescribed by: ANNABELLA MERCEDES on 12/25/19 09 Metformin HCl 1,000 Mg Tablet, 1,000 MG PO BID, (Reported) Nitrofurantoin Monohyd/M-Cryst 100 Mg Capsule, 1 TAB PO BID WITH MEALS Prescribed by: TRACY PIZANO on 12/31/19 132 [place] 3 Polyunsat Fatty Acids 1,000 Mg Cap, 4,000 MG PO BID WITH MEALS Prescribed by: ANNABELLA MERCEDES on 12/25/19 09 Ondansetron 8 Mg Tab.rapdis, 8 MG PO Q6H Prescribed by: COLLEEN PAZ on 02/21/20 1159 Oxycodone Hcl 5 Mg Tab, 5 MG PO Q4H PRN for PAIN-SEVERE (8-10) Prescribed by: ANNABELLA MERCEDES on 12/25/19 0949 Phenazopyridine HCl 200 Mg Tablet, 1 TAB PO TID PRN for PAIN-MILD (1-4) Prescribed by: TRACY PIZANO on 12/31/19 132 Tamsulosin HCl 0.4 Mg Cap, 0.4 MG PO DAILY Prescribed by: TRACY PIZANO on 12/31/19 132 Tramadol HCl 50 Mg Tablet, 1-2 TAB PO Q4H PRN for SPASMS Prescribed by: TRACY PIZANO on 12/31/19 132 Patient Home Medication List Home Medication List Reviewed: Yes Review of Systems Review of Systems Constitutional: no symptoms reported; No fever Respiratory: no symptoms reported Cardiovascular: no symptoms reported Gastrointestinal: see HPI, abdominal pain; No diarrhea; nausea, vomiting Genitourinary: see HPI, flank pain Musculoskeletal: see HPI, back pain Skin: no symptoms reported Psychiatric/Neurological: No Symptoms Reported Endocrine: No Symptoms Reported Hematologic/Lymphatic: No Symptoms Reported Past Ftnewsl-Bmcnfs-Zazzop Hx Past Med/Social Hx: Reviewed and Corrections made Patient Social History Alcohol Use: Denies Use Recreational Drug Use: No Smoking Status: Never a Smoker 2nd Hand Smoke Exposure: No Recent Foreign Travel: No Contact w/Someone Who Travel: No Recent Infectious Disease Expo: No Recent Hopitalizations: No Physical Abuse: No Sexual Abuse: No Mistreated: No Fear: No Immunizations Up To Date PED Vaccines UTD: No Date of Pneumonia Vaccine: Nov 19, 2018 Date of Influenza Vaccine: Nov 20, 2019 Seasonal Allergies Seasonal Allergies: Yes Past Medical History Surgeries: Yes (HERNIA;PACEMAKER REMOVAL;CYSTOSCOPIES/LITHOTRIPSY/URETERAL STENTS) Abdominal, Orthopedic, Pacemaker, Renal Respiratory: No Currently Using CPAP: No Currently Using BIPAP: No Cardiac: Yes (PACEMAKER REMOVED) High Cholesterol, Hypertension, Irregular Heartbeat Neurological: Yes Headaches /Migraines Reproductive Disorders: No Sexually Transmitted Disease: No HIV/AIDS: No Genitourinary: Yes Kidney Stones Gastrointestinal: Yes Abdominal Hernia, Gastroesophageal Reflux, Chronic Diarrhea, Ulcer Musculoskeletal: Yes Degenerate Disk Disease, Arthritis, Chronic Back Pain Endocrine: Yes Diabetes, Insulin dep HEENT: Yes (GLASSES, BLIND IN RIGHT EYE, DENTURES) Loss of Vision: Right Hearing Impairment: Denies Cancer: No Psychosocial: No Integumentary: No Blood Disorders: No Adverse Reaction/Blood Tranf: No (N/A) Family Medical History Patient reports no known family medical history. No Pertinent Family Hx Physical Exam Vital Signs Vital Signs - First Documented 02/21/20 09:23 Temp 36.1 Pulse 111 Resp 18 B/P (MAP) 151/95 (113) Pulse Ox 97 Capillary Refill : Less Than 3 Seconds Height, Weight, BMI Height: 5'7.00" Weight: 187lbs. 0.5oz. [id number]; 27.00 BMI Method:Stated General Appearance: WD/WN, no apparent distress, other (UNKEMPT) Cardiovascular: regular rate, rhythm, no murmur Respiratory: normal breath sounds Gastrointestinal: soft, tenderness (MILD RIGHT FLANK TENDERNESS) Back: no vertebral tenderness, CVA tenderness (R) Extremities: normal inspection Neurologic/Psychiatric: no motor/sensory deficits, alert, normal mood/affect, oriented x 3 Skin: normal color, warm/dry; No rash Progress/Results/Core Measures Suspected Sepsis Recent Fever Within 48 Hours: No Infection Criteria Present: None New/Unexplained Altered Menta: No Sepsis Screen: No Definite Risk SIRS Temperature: Pulse: 111 Respiratory Rate: 18 Laboratory Tests 02/21/20 09:41: White Blood Count 11.3H Blood Pressure 151 /95 Mean: 113 Laboratory Tests 02/21/20 09:41: Creatinine 1.21, Platelet Count 350, Total Bilirubin 0.5 Results/Orders Lab Results Laboratory Tests Test 02/21/20 09:35 02/21/20 09:41 Range/Units Urine Color YELLOW Urine Clarity CLOUDY Urine pH 5.5 5-9 Urine Specific [place] 1.025 H 1.016-1.022 Urine Protein 3+ H NEGATIVE Urine Glucose (UA) 3+ H NEGATIVE Urine Ketones NEGATIVE NEGATIVE Urine Nitrite NEGATIVE NEGATIVE Urine Bilirubin NEGATIVE NEGATIVE Urine Urobilinogen 0.2 < = 1.0 MG/DL Urine Leukocyte Esterase 1+ H NEGATIVE Urine RBC (Auto) 3+ H NEGATIVE Urine RBC >100 H /HPF Urine WBC TNTC H /HPF Urine Crystals NONE /LPF Urine Bacteria FEW H /HPF Urine Casts NONE /LPF Urine Mucus NEGATIVE /LPF Urine Yeast MODERATE H /HPF Urine Culture Indicated YES White Blood Count 11.3 H 4.3-11.0 10^3/uL Red Blood Count 4.33 4.30-5.52 10^6/uL Hemoglobin 12.2 L 13.3-17.7 g/dL Hematocrit 36 L 40-54 % Mean Corpuscular Volume 84 80-99 fL Mean Corpuscular Hemoglobin 28 25-34 pg Mean Corpuscular Hemoglobin Concent 34 32-36 g/dL Red Cell Distribution Width 12.6 10.0-14.5 % Platelet Count 350 130-400 10^3/uL Mean Platelet Volume 9.9 9.0-12.2 fL Immature Granulocyte % (Auto) 1 % Neutrophils (%) (Auto) 75 42-75 % Lymphocytes (%) (Auto) 13 12-44 % Monocytes (%) (Auto) 9 0-12 % Eosinophils (%) (Auto) 2 0-10 % Basophils (%) (Auto) 0 0-10 % Neutrophils # (Auto) 8.5 H 1.8-7.8 10^3/uL Lymphocytes # (Auto) 1.5 1.0-4.0 10^3/uL Monocytes # (Auto) 1.0 0.0-1.0 10^3/uL Eosinophils # (Auto) 0.2 0.0-0.3 10^3/uL Basophils # (Auto) 0.0 0.0-0.1 10^3/uL Immature Granulocyte # (Auto) 0.1 0.0-0.1 10^3/uL Sodium Level 137 135-145 MMOL/L Potassium Level 4.1 3.6-5.0 MMOL/L Chloride Level 97 L 98-107 MMOL/L Carbon Dioxide Level 25 21-32 MMOL/L Anion Gap 15 H 5-14 MMOL/L Blood Urea Nitrogen 17 7-18 MG/DL Creatinine 1.21 0.60-1.30 MG/DL Estimat Glomerular Filtration Rate > 60 BUN/Creatinine Ratio 14 Glucose Level 220 H 70-105 MG/DL Calcium Level 10.5 H 8.5-10.1 MG/DL Corrected Calcium 8.5-10.1 MG/DL Total Bilirubin 0.5 0.1-1.0 MG/DL Aspartate Amino Transf (AST/SGOT) 18 5-34 U/L Alanine Aminotransferase (ALT/SGPT) 20 0-55 U/L Alkaline Phosphatase 145 H 40-136 U/L Total Protein 8.7 H 6.4-8.2 GM/DL Albumin 4.6 H 3.2-4.5 GM/DL Micro Results Microbiology 02/21/20 Urine Culture - Final, Complete YEAST My Orders Orders - COLLEEN PAZ DO Ed Iv/Invasive Line Start (02/21/20 09:18) Ct Abd/Pelvis Wo(Kidney Stone) (02/21/20 09:18) Abdomen/Kub 1view (02/21/20 09:18) Cbc With Automated Diff (02/21/20 09:18) Comprehensive Metabolic Panel (02/21/20 09:18) Ua Culture If Indicated (02/21/20 09:18) Ketorolac Injection (Toradol Injection) (02/21/20 09:30) Pantoprazole Injection (Protonix Injecti (02/21/20 09:30) Urine Culture (02/21/20 09:35) Ceftriaxone For Iv Use (Rocephin For I (02/21/20 10:00) Medications Given in ED Vital Signs/I&O 02/21/20 02/21/20 09:23 12:17 Temp 36.1 Pulse 111 87 Resp 18 16 B/P (MAP) 151/95 (113) 132/87 Pulse Ox 97 98 Capillary Refill : Less Than 3 Seconds Blood Pressure Mean: 113 Progress Note : Progress Note GIVEN IV FLUIDS, TORADOL, PROTONIX AND ROCEPHIN SYMPTOMS RESOLVED AT DISMISSAL Diagnostic Imaging Comments CT ABDOMEN/PELVIS--PER RADIOLOGIST REPORT AT 1154 FINDINGS: Evaluation of the abdominal viscera is mildly limited without contrast. Lower chest: The lung bases are clear. No pericardial or pleural effusion. Peritoneum: No free intraperitoneal air or fluid. Liver and biliary system: Unenhanced liver is normal. The gallbladder is normal. No biliary duct dilation. Spleen and Pancreas: Spleen is normal. Unenhanced pancreas is grossly normal. Adrenals: Normal. tract: Right-sided nephroureteral stent has its proximal portion coiled in the renal pelvis and its distal aspect coiled within the urinary bladder. There is air present in the urinary bladder and renal pelvis. There remains a 10 mm nonobstructing stone in the lower pole of the right kidney. There are also punctate 2 mm fragments of mineralization in the mid aspect of the right kidney. No right-sided hydronephrosis. Stranding is present around the right ureter. No left renal or ureteral stones. Prostate is not enlarged. GI tract: Stomach is decompressed. No bowel obstruction. No pericolonic inflammatory changes. Normal appendix. Vasculature and Lymph nodes: Normal caliber aorta. No abdominal or pelvic lymphadenopathy. Musculoskeletal: No concerning osseous lesion. IMPRESSION: 1. Well-positioned right nephroureteral stent. There is air within the renal pelvis and urinary bladder which may be due to recent procedure. Correlation with urinalysis for infection is advised. 2. There remain nonobstructing stones in the right kidney, the largest measuring 10 mm. Reviewed: Reviewed by Me Departure Impression Primary Impression: Urinary tract infection Additional Impression: S/P RECENT RIGHT URETERAL STENT AND LITHOTRIPSY Disposition: HOME, SELF-CARE Condition: Improved Departure-Patient Inst. Referrals: VERA DAS DO (PCP/Family) Primary Care Physician DENIZ NGO MD Patient Instructions: Kidney Stones (DC), Ureteral Stent (DC), Urinary Tract Infection, Adult (DC) Add. Discharge Instructions: INCREASE YOUR FLUID INTAKE CONTINUE YOUR REGULAR MEDICATIONS PRESCRIBED CONTINUE HYDROCODONE NEEDED FOR PAIN KEEP YOUR APPOINTMENT WITH UROLOGIST AT [facility] NEXT WEEK, OR SOONER IF SYMPTOMS WORSEN All discharge instructions reviewed with patient and/or family. Voiced understanding. Scripts Ondansetron (Ondansetron Odt) 8 Mg Tab.rapdis 8 MG PO Q6H, #10 TAB Prov: COLLEEN PAZ DO 02/21/20 Cefdinir (Cefdinir) 300 Mg Capsule 300 MG PO BID, #20 CAP Prov: COLLEEN PAZ DO 02/21/20 COLLEEN PAZ DO Feb 21, 2020 11:59
--- NOTE | 2020-02-21 12:12 | Diagnostic Imaging Report ---
INDICATION: Back pain right lower quadrant pain Its compared with study 01/13/2020. FINDINGS: The right-sided double-J stent projects in good alignment. Previously there was a large dominant stone projecting over right lower pole calyx now this calculus is diminished in volume and has become fragmented with its largest component measuring 3 to 4 mm. No definite opaque calculi along the course of the right ureteral stent. IMPRESSION: Maceration and fragmentation of a dominant lower pole stone present on prior double-J stent projects in good alignment. No detectable radiopaque ureteral calculus. Dictated by: Dictated on workstation # [id number]
[2020-02-21 12:17] VITALS: BP 132/87
== END 2020-02-21 12:16 | disposition home or self-care (01) ==
LOC: EDUNIT# 08:52 → ER 08:54
DX: N39.0 Urinary tract infection, site not specified (principal); I10 Essential (primary) hypertension; E11.9 Type 2 diabetes mellitus without complications; E78.00 Pure hypercholesterolemia, unspecified; G43.909 Migraine, unspecified, not intractable, without status migrainosus; G89.29 Other chronic pain; Z98.890 Other specified postprocedural states; Z88.6 Allergy status to analgesic agent; Z88.5 Allergy status to narcotic agent; Z79.4 Long term (current) use of insulin; Z79.891 Long term (current) use of opiate analgesic; Z79.51 Long term (current) use of inhaled steroids
CPT/HCPCS: 36415; 74018; 74176; 80053; 81000; 85025; 87088

== ENCOUNTER 2020-03-17 16:31 | Emergency (ER) | payer MEDICAID ==
[~2020-03-17] VITALS: Ht 170 cm; Wt 77.0 kg
[~2020-03-17 16:31] MED LIST changes: +CEFD300C3 PO; +ONDA8TAB13 PO
[2020-03-17] MEDS ORDERED: PHENAZOPYRIDINE 100 MG (PYRIDIUM) TABLET PO ONE (17:00)
[2020-03-17] MEDS ORDERED: fentaNYL INJECTION 100 MCG/2 ML AMP IVP ONE (17:00)
[2020-03-17] MEDS ORDERED: NS IV 500 ML 500 ML IV SCH (17:00)
--- NOTE | 2020-03-17 17:01 | ED General ---
General Stated Complaint: PAIN WHILE URINATING Source of Information: Patient Exam Limitations: No Limitations History of Present Illness Date Seen by Provider: Mar 17, 2020 Time Seen by Provider: 16:59 Initial Comments To ER by private vehicle with reports of right flank pain and burning on urination since the ureteral stent was removed in February. Timing/Duration: 1-2 Days Severity: Moderate Associated Systoms: Denies Symptoms Allergies and Home Medications Allergies Coded Allergies: aspirin (Verified Allergy, Severe, HX STOMACHS ULCER, 07/09/19) ibuprofen (Verified Allergy, Intermediate, HX STOMACH ULCERS, 07/09/19) morphine (Verified Allergy, Unknown, 07/09/19) Home Medications Acetaminophen 650 Mg Tablet.er, 1,300 MG PO Q8H PRN for PAIN-MILD (1-4), (Reported) Atorvastatin Calcium 80 Mg Tablet, 80 MG PO HS Prescribed by: ANNABELLA MERCEDES on 12/25/19938 Calcium Carbonate 400 Mg Tab.chew, 400-800 MG PO PRN PRN for HEARTBURN, (Reported) Cefdinir 300 Mg Capsule, 300 MG PO BID Prescribed by: COLLEEN PAZ on 02/21/20 1159 Cefuroxime Axetil 500 Mg Tablet, 500 MG PO BID Prescribed by: VALERY HEARD on 03/17/201747 Cetirizine HCl 10 Mg Tablet, 10 MG PO DAILY, (Reported) Dextromethorphan HBr/Chlor-Mal 1 Each Tablet, 1-2 EACH PO UD PRN for COUGH/COLD SYMPTOMS, (Reported) Fenofibrate,Micronized 134 Mg Capsule, 134 MG PO HS Prescribed by: ANNABELLA MERCEDES on 12/25/19938 Fluconazole 200 Mg Tablet, 200 MG PO DAILY Prescribed by: AVLERY HEARD on 03/17/201747 Fluticasone Propionate 9.9 Ml [place].susp, 2 SPRAY NS DAILY, (Reported) Guaifen/Phenyleph/Acetaminophn 1 Each Tablet, 1-2 EACH PO Q6H PRN for CONGESTION, (Reported) Insulin Aspart 300 Units/3 Ml Solution, 5 UNITS SQ AC Prescribed by: ANNABELLA MERCEDES on 12/25/191055 Insulin Detemir 100 Unit/1 Ml Insuln.pen, 30 UNIT SQ HS Prescribed by: ANNABELLA MERCEDES on 12/25/191055 Lisinopril 40 Mg Tablet, 40 MG PO DAILY Prescribed by: ANNABELLA MERCEDES on 12/25/19 0939 Metformin HCl 1,000 Mg Tablet, 1,000 MG PO BID, (Reported) Nitrofurantoin Monohyd/M-Cryst 100 Mg Capsule, 1 TAB PO BID WITH MEALS Prescribed by: TRACY PIZANO on 12/31/19 1321 [place] 3 Polyunsat Fatty Acids 1,000 Mg Cap, 4,000 MG PO BID WITH MEALS Prescribed by: ANNABELLA MERCEDES on 12/25/19 0939 Ondansetron 8 Mg Tab.rapdis, 8 MG PO Q6H Prescribed by: COLLEEN PAZ on 02/21/20 1159 Oxycodone HCl/Acetaminophen 1 Each Tablet, 1 EACH PO Q4H PRN for PAIN-MODERATE Prescribed by: VALERY HEARD on 03/17/20 1750 Oxycodone Hcl 5 Mg Tab, 5 MG PO Q4H PRN for PAIN-SEVERE (8-10) Prescribed by: ANNABELLA MERCEDES on 12/25/19 0949 Phenazopyridine HCl 200 Mg Tablet, 1 TAB PO TID PRN for PAIN-MILD (1-4) Prescribed by: TRACY PIZANO on 12/31/19 132 Tamsulosin HCl 0.4 Mg Cap, 0.4 MG PO DAILY Prescribed by: TRACY PIZANO on 12/31/19 1321 Tramadol HCl 50 Mg Tablet, 1-2 TAB PO Q4H PRN for SPASMS Prescribed by: TRACY PIZANO on 12/31/19 1321 Patient Home Medication List Home Medication List Reviewed: Yes Review of Systems Review of Systems Constitutional: see HPI, chills, fever EENTM: see HPI Respiratory: no symptoms reported Cardiovascular: no symptoms reported Genitourinary: no symptoms reported Musculoskeletal: no symptoms reported Skin: no symptoms reported Psychiatric/Neurological: No Symptoms Reported Hematologic/Lymphatic: No Symptoms Reported Past Uusxnxz-Wtvtkh-Wtxeoc Hx Patient Social History 2nd Hand Smoke Exposure: No Recent Hopitalizations: No Immunizations Up To Date PED Vaccines UTD: No Date of Pneumonia Vaccine: Nov 19, 2018 Date of Influenza Vaccine: Nov 20, 2019 Seasonal Allergies Seasonal Allergies: Yes Past Medical History Surgeries: Yes (HERNIA;PACEMAKER REMOVAL;CYSTOSCOPIES/LITHOTRIPSY/URETERAL STENTS) Abdominal, Orthopedic, Pacemaker, Renal Respiratory: No Currently Using CPAP: No Currently Using BIPAP: No Cardiac: Yes (PACEMAKER REMOVED) High Cholesterol, Hypertension, Irregular Heartbeat Neurological: Yes Headaches /Migraines Reproductive Disorders: No Sexually Transmitted Disease: No HIV/AIDS: No Genitourinary: Yes Kidney Stones Gastrointestinal: Yes Abdominal Hernia, Gastroesophageal Reflux, Chronic Diarrhea, Ulcer Musculoskeletal: Yes Degenerate Disk Disease, Arthritis, Chronic Back Pain Endocrine: Yes Diabetes, Insulin dep HEENT: Yes (GLASSES, BLIND IN RIGHT EYE, DENTURES) Loss of Vision: Right Hearing Impairment: Denies Cancer: No Psychosocial: No Integumentary: No Blood Disorders: No Adverse Reaction/Blood Tranf: No (N/A) Family Medical History Patient reports no known family medical history. No Pertinent Family Hx Physical Exam Vital Signs Vital Signs - First Documented 03/17/20 16:45 Temp 36.6 Pulse 107 Resp 18 B/P (MAP) 157/102 (120) Pulse Ox 97 Capillary Refill : Height, Weight, BMI Height: 5'7.00" Weight: 187lbs. 0.5oz. 84.514874ec; 27.00 BMI Method:Stated General Appearance: No Apparent Distress, WD/WN Eyes: Bilateral Eye Normal Inspection, Bilateral Eye PERRL Neck: Full Range of Motion, Normal Inspection Respiratory: No Accessory Muscle Use, No Respiratory Distress Cardiovascular: Regular Rate, Rhythm, Normal Peripheral Pulses Gastrointestinal: Normal Bowel Sounds, Non Tender, Soft Extremity: Normal Capillary Refill, Normal Inspection Neurologic/Psychiatric: Alert, Oriented x3 Progress/Results/Core Measures Suspected Sepsis SIRS Temperature: Pulse: Respiratory Rate: Laboratory Tests 03/17/20 16:58: White Blood Count 8.5 Blood Pressure / Mean: Laboratory Tests 03/17/20 16:58: Creatinine 1.04, Platelet Count 259 Results/Orders Lab Results Laboratory Tests Test 03/17/20 16:58 03/17/20 17:25 Range/Units White Blood Count 8.5 4.3-11.0 10^3/uL Red Blood Count 3.87 L 4.30-5.52 10^6/uL Hemoglobin 10.6 L 13.3-17.7 g/dL Hematocrit 33 L 40-54 % Mean Corpuscular Volume 85 80-99 fL Mean Corpuscular Hemoglobin 27 25-34 pg Mean Corpuscular Hemoglobin Concent 32 32-36 g/dL Red Cell Distribution Width 14.4 10.0-14.5 % Platelet Count 259 130-400 10^3/uL Mean Platelet Volume 9.2 9.0-12.2 fL Immature Granulocyte % (Auto) 2 % Neutrophils (%) (Auto) 62 42-75 % Lymphocytes (%) (Auto) 25 12-44 % Monocytes (%) (Auto) 8 0-12 % Eosinophils (%) (Auto) 3 0-10 % Basophils (%) (Auto) 1 0-10 % Neutrophils # (Auto) 5.3 1.8-7.8 10^3/uL Lymphocytes # (Auto) 2.2 1.0-4.0 10^3/uL Monocytes # (Auto) 0.7 0.0-1.0 10^3/uL Eosinophils # (Auto) 0.2 0.0-0.3 10^3/uL Basophils # (Auto) 0.1 0.0-0.1 10^3/uL Immature Granulocyte # (Auto) 0.2 H 0.0-0.1 10^3/uL Sodium Level 143 135-145 MMOL/L Potassium Level 4.1 3.6-5.0 MMOL/L Chloride Level 107 98-107 MMOL/L Carbon Dioxide Level 20 L 21-32 MMOL/L Anion Gap 16 H 5-14 MMOL/L Blood Urea Nitrogen 12 7-18 MG/DL Creatinine 1.04 0.60-1.30 MG/DL Estimat Glomerular Filtration Rate > 60 BUN/Creatinine Ratio 12 Glucose Level 141 H 70-105 MG/DL Calcium Level 9.0 8.5-10.1 MG/DL Urine Color YELLOW Urine Clarity SL CLOUDY Urine pH 5.5 5-9 Urine Specific [place] 1.025 H 1.016-1.022 Urine Protein 2+ H NEGATIVE Urine Glucose (UA) NEGATIVE NEGATIVE Urine Ketones NEGATIVE NEGATIVE Urine Nitrite NEGATIVE NEGATIVE Urine Bilirubin NEGATIVE NEGATIVE Urine Urobilinogen 0.2 < = 1.0 MG/DL Urine Leukocyte Esterase 3+ H NEGATIVE Urine RBC (Auto) 1+ H NEGATIVE Urine RBC 0-2 /HPF Urine WBC 50-100 H /HPF Urine Squamous Epithelial Cells RARE /HPF Urine Crystals NONE /LPF Urine Bacteria TRACE /HPF Urine Casts NONE /LPF Urine Mucus SMALL H /LPF Urine Yeast FEW H /HPF Urine Culture Indicated YES My Orders Orders - VALERY HEARD APRN Ua Culture If Indicated (03/17/20 16:33) Cbc With Automated Diff (03/17/20 16:51) Basic Metabolic Panel (03/17/20 16:51) Ed Iv/Invasive Line Start (03/17/20 16:51) Ct Abd/Pelvis Wo(Kidney Stone) (03/17/20 16:51) Phenazopyridine Tablet (Pyridium Tablet) (03/17/20 17:00) Ns Iv 500 Ml (Sodium Chloride 0.9%) (03/17/20 17:00) Fentanyl Injection (Sublimaze Injection (03/17/20 17:00) Abdomen/Kub 1view (03/17/20 16:51) Urine Culture (03/17/20 17:25) Fluconazole Tablet (Ed Only) (Diflucan T (03/17/20 17:45) Medications Given in ED Current Medications Medications Dose Ordered Sig/Melo Route Start Time Stop Time Status Last Admin Dose Admin Fentanyl Citrate 50 mcg ONCE ONCE IVP 03/17/20 17:00 03/17/20 17:01 DC 03/17/20 17:26 50 MCG Phenazopyridine HCl 100 mg ONCE ONCE PO 03/17/20 17:00 03/17/20 17:01 DC 03/17/20 17:25 100 MG Vital Signs/I&O 03/17/20 16:45 Temp 36.6 Pulse 107 Resp 18 B/P (MAP) 157/102 (120) Pulse Ox 97 Capillary Refill : Diagnostic Imaging Diagonstic Imaging: Xray, CT Comments NAME: ANGELLA [facility] REC#: [id number] PT STATUS: REG ER : 1960 PHYSICIAN: VALERY HEARD [employer]UR [employer] PERSONALITY ADMIT DATE: 03/17/20/ER Draft Date of Exam:03/17/20 CT ABD/PELVIS WO(KIDNEY STONE) PROCEDURE: CT urinary tract, rule out kidney stone. TECHNIQUE: Multiple contiguous axial images were obtained through the abdomen and pelvis without the use of intravenous contrast. Auto Exposure Controls were utilized during the CT exam to meet ALARA standards for radiation dose reduction. INDICATION: Right flank pain and dysuria. COMPARISON: Correlation is made with prior CT from 02/21/2020. FINDINGS: Lung bases demonstrate linear atelectasis or scarring. Liver and gallbladder are unremarkable. No biliary ductal dilatation is seen. Pancreas and spleen are unremarkable. No adrenal mass is detected. Punctate nonobstructing calculus in the right kidney is noted. There is approximately 9 to 10 mm calculus in the lower pole, described previously. The right-sided nephroureteral stent has been removed. There is a stone versus two adjacent stones in the distal right ureter in aggregate measuring approximately 5 mm. This is approximately 6 cm proximal to the UVJ. There is dodg-qu-facngvel right-sided hydroureteronephrosis. Left kidney is without calculi. Left ureter is normal in caliber. No ureteral or bladder calculi are detected. Aorta is nonaneurysmal. Small and large bowel loops are normal in caliber. There is no obstruction. There is no free fluid or fluid collection. Prostate is unremarkable. IMPRESSION: Removal of right-sided double-J nephroureteral stent. There are nonobstructing calculi in the right kidney. In addition, there appears to be a calculus versus two adjacent calculi in the distal right ureter in aggregate measuring approximately 5 mm and produces moderate right-sided hydroureteronephrosis. Dictated on workstation # [id number] Dict: 03/17/20 1724 Trans: 03/17/20 1733 [id number] Interpreted by: GUI DIXON MD Electronically signed by: Departure Impression Primary Impression: Candiduria Additional Impressions: UTI (urinary tract infection) Right ureteral calculus Disposition: 01 HOME, SELF-CARE Condition: Stable Departure-Patient Inst. Decision time for Depature: 17:46 Referrals: VERA DAS DO (PCP/Family) Primary Care Physician Patient Instructions: Yeast Infection (DC) Add. Discharge Instructions: Take the 2 medications as directed. Follow-up with your doctor next week. Return to ER for any worsening. Scripts Oxycodone HCl/Acetaminophen (Oxycodone-Acetaminophen 5-325) 1 Each Tablet 1 EACH PO Q4H PRN for PAIN-MODERATE MDD 6 for 3 Days, #10 TAB 0 Refills Prov: VALERY HEARD APRN 03/17/20 Cefuroxime Axetil (Cefuroxime) 500 Mg Tablet 500 MG PO BID, #10 TAB Prov: VALERY HEARD APRN 03/17/20 Fluconazole (Diflucan) 200 Mg Tablet 200 MG PO DAILY, #14 TAB Prov: VALERY HEARD APRN 03/17/20 Copy Copies To 1: DENIZ NGO MD, PETER J APRN Mar 17, 2020 17:01
[2020-03-17 17:11] LABS: BASOPHILS # (AUTO) 0.1 10^3/uL (0.0-0.1); BASOPHILS % (AUTO) 1 % (0-10); EOSINOPHILS # (AUTO) 0.2 10^3/uL (0.0-0.3); EOSINOPHILS % (AUTO) 3 % (0-10); HEMATOCRIT 33 % (40-54); HEMOGLOBIN 10.6 g/dL (13.3-17.7); LYMPHOCYTES # (AUTO) 2.2 10^3/uL (1.0-4.0); LYMPHOCYTES % (AUTO) 25 % (12-44); MEAN CORPUSCULAR HEMOGLOBIN 27 pg (25-34); MEAN CORPUSCULAR HGB CONC 32 g/dL (32-36); MEAN CORPUSCULAR VOLUME 85 fL (80-99); MEAN PLATELET VOLUME 9.2 fL (9.0-12.2); MONOCYTES # (AUTO) 0.7 10^3/uL (0.0-1.0); MONOCYTES % (AUTO) 8 % (0-12); NEUTROPHILS # (AUTO) 5.3 10^3/uL (1.8-7.8); NEUTROPHILS % (AUTO) 62 % (42-75); PLATELET COUNT 259 10^3/uL (130-400); WHITE BLOOD COUNT 8.5 10^3/uL (4.3-11.0)
[2020-03-17 17:24] LABS: CHLORIDE 107 MMOL/L (98-107); POTASSIUM 4.1 MMOL/L (3.6-5.0); SODIUM 143 MMOL/L (135-145)
[2020-03-17 17:26] LABS: GLUCOSE 141 MG/DL (70-105)
[2020-03-17 17:28] LABS: CARBON DIOXIDE 20 MMOL/L (21-32)
[2020-03-17 17:30] LABS: CREATININE SERUM 1.04 MG/DL (0.60-1.30); GFR ESTIMATED > 60
[2020-03-17 17:31] LABS: BILIRUBIN,URINE NEGATIVE (NEGATIVE); COLOR,URINE YELLOW; GLUCOSE, URINE (UA) NEGATIVE (NEGATIVE); KETONES,URINE NEGATIVE (NEGATIVE); LEUKOCYTE ESTERASE ,URINE 3+ (NEGATIVE); NITRITE,URINE NEGATIVE (NEGATIVE); PH,URINE 5.5 (5-9); PROTEIN,URINE 2+ (NEGATIVE)
[2020-03-17 17:31] LABS: BUN/CREATININE RATIO 12
--- NOTE | 2020-03-17 17:33 | Diagnostic Imaging Report ---
PROCEDURE: CT urinary tract, rule out kidney stone. TECHNIQUE: Multiple contiguous axial images were obtained through the abdomen and pelvis without the use of intravenous contrast. Auto Exposure Controls were utilized during the CT exam to meet ALARA standards for radiation dose reduction. INDICATION: Right flank pain and dysuria. COMPARISON: Correlation is made with prior CT from 02/21/2020. FINDINGS: Lung bases demonstrate linear atelectasis or scarring. Liver and gallbladder are unremarkable. No biliary ductal dilatation is seen. Pancreas and spleen are unremarkable. No adrenal mass is detected. Punctate nonobstructing calculus in the right kidney is noted. There is approximately 9 to 10 mm calculus in the lower pole, described previously. The right-sided nephroureteral stent has been removed. There is a stone versus two adjacent stones in the distal right ureter in aggregate measuring approximately 5 mm. This is approximately 6 cm proximal to the UVJ. There is vmyi-dz-txzeaxwl right-sided hydroureteronephrosis. Left kidney is without calculi. Left ureter is normal in caliber. No ureteral or bladder calculi are detected. Aorta is nonaneurysmal. Small and large bowel loops are normal in caliber. There is no obstruction. There is no free fluid or fluid collection. Prostate is unremarkable. IMPRESSION: Removal of right-sided double-J nephroureteral stent. There are nonobstructing calculi in the right kidney. In addition, there appears to be a calculus versus two adjacent calculi in the distal right ureter in aggregate measuring approximately 5 mm and produces moderate right-sided hydroureteronephrosis. Dictated by: Dictated on workstation # [id number]
[2020-03-17 17:36] LABS: CLARITY,URINE SL CLOUDY
[2020-03-17 17:38] LABS: BACTERIA,URINE TRACE /HPF; RBC,URINE 0-2 /HPF; SQUAMOUS EPITHELIAL CELL,UR RARE /HPF; WBC,URINE 50-100 /HPF; YEAST,URINE FEW /HPF
--- NOTE | 2020-03-17 17:39 | Diagnostic Imaging Report ---
INDICATION: Right-sided kidney stones and recent stent removal. Time of exam: 5:24 PM Correlation is made with prior study from 02/21/2020. A calcific density overlies lower pole right kidney, similar to prior exam. The right-sided stent has been removed. There is a questionable calcific density in the right pelvis correlating with the distal ureteric stone noted on CT. The bowel gas pattern is unremarkable. There is no free air. IMPRESSION: Right-sided urinary tract calculi, as described. Dictated by: Dictated on workstation # [id number]
[2020-03-17] MEDS ORDERED: FLUCONAZOLE 150 MG TABLET (ED ONLY) PO ONE (17:45)
[2020-03-17] MEDS ORDERED: CEFU500T63 PO (17:48)
[2020-03-17] MEDS ORDERED: FLUC200T PO (17:48)
[2020-03-17] MEDS ORDERED: OXYC-471 PO (17:49)
[2020-03-17 18:06] VITALS: BP 135/92
== END 2020-03-17 18:06 | disposition home or self-care (01) ==
LOC: EDUNIT# 16:31 → ER 16:33
DX: B37.49 Other urogenital candidiasis (principal); N13.2 Hydronephrosis with renal and ureteral calculous obstruction; E78.00 Pure hypercholesterolemia, unspecified; E11.9 Type 2 diabetes mellitus without complications; G89.29 Other chronic pain; M54.9 Dorsalgia, unspecified; I10 Essential (primary) hypertension; Z95.0 Presence of cardiac pacemaker; Z88.5 Allergy status to narcotic agent; Z88.6 Allergy status to analgesic agent; Z88.8 Allergy status to other drugs, medicaments and biological substances; Z79.891 Long term (current) use of opiate analgesic; Z79.4 Long term (current) use of insulin
CPT/HCPCS: 36415; 74018; 74176; 80048; 81000; 85025; 87088

== ENCOUNTER → 2020-03-23 | Outpatient (CLI) | payer MEDICAID ==
[~2020-03-23] MED LIST changes: +CEFU500T63 PO; +FLUC200T PO; +OXYC-471 PO
--- NOTE | 2020-03-23 13:02 | Diagnostic Imaging Report ---
INDICATION: Nephrolithiasis KUB 12:57 PM There are 2 calculi projecting over the inferior pole of the right kidney. These each measure 3 mm in diameter. Bowel gas pattern is normal. IMPRESSION: Right nephrolithiasis. No change compared to 03/17/2020. Dictated by: Dictated on workstation # [id number]
== END ==
LOC: RAD 12:45
PROVIDERS: ATTEND Urology
DX: N20.2 Calculus of kidney with calculus of ureter (principal)
CPT/HCPCS: 74018

== ENCOUNTER 2020-04-03 05:39 | Outpatient (RCR) | payer MEDICAID ==
[~2020-04-03] VITALS: Ht 170.2 cm; Wt 77.3 kg
[~2020-04-03 05:39] MED LIST changes: +INSU100I48 SQ; +KETO10TA PO; -LISI-552 PO; +LISI20TA26 PO; -LISI40TA PO; +LISI40TA9 PO; -OXYC-471 PO; +OXYC1TAB11 PO
== END 2020-04-03 12:10 | disposition home or self-care (01) ==
LOC: PREOP 05:39
PROVIDERS: ATTEND Urology
DX: Z01.812 Encounter for preprocedural laboratory examination (principal); N20.1 Calculus of ureter; Z20.822 Contact with and (suspected) exposure to COVID-19
CPT/HCPCS: 87635

== ENCOUNTER 2020-04-07 06:06 | Day surgery (SDC) | payer MEDICAID ==
[2020-04-07] VITALS (10 sets, daily range): BP systolic 88–181; BP diastolic 55–112
[~2020-04-07] VITALS: Ht 170.2 cm; Wt 77.3 kg
[2020-04-07] MEDS ORDERED: cefTRIAXone FOR IV USE 1,000 MG in WATER (STERILE) FOR INJECTION 10 ML IV ONE (06:45)
[2020-04-07] MEDS ORDERED: LIDOCAINE PF 2% 5 ML (XYLOCAINE) VIAL ONE (06:46)
[2020-04-07] MEDS ORDERED: proPOfol 200 MG/20 ML (DIPRIVAN) VIAL IV ONE (06:46)
[2020-04-07] MEDS ORDERED: ROCURONIUM 10 MG/ML 5 ML SYRINGE IV ONE (06:46)
[2020-04-07] MEDS ORDERED: ONDANSETRON 4 MG/2 ML (SDV) Z0FRAN ONE (06:46)
[2020-04-07] MEDS ORDERED: MIDAZOLAM 2 MG/2 ML (VERSED) VIAL ONE (06:46)
[2020-04-07] MEDS ORDERED: GLYCOPYRROLATE 0.2 MG/ML (ROBINUL) 2 ML VIAL ONE (06:47)
[2020-04-07] MEDS ORDERED: FUROSEMIDE 40 MG/4 ML INJ (LASIX) ONE (06:47)
[2020-04-07] MEDS ORDERED: fentaNYL INJECTION 100 MCG/2 ML AMP ONE ×2 (06:47→06:50)
[2020-04-07] MEDS ORDERED: SEVOFLURANE (ULTANE) 15 ML INHAL SOLN ONE (06:47)
[2020-04-07] MEDS ORDERED: NEOSTIGMINE 3 MG/3 ML VIAL ONE (06:47)
[2020-04-07] MEDS ORDERED: WATER (STERILE) FOR INJECTION 10 ML ONE (06:51)
[2020-04-07] MEDS ORDERED: cefTRIAXone 1,000 MG IV (ROCEPHIN) VIAL ONE (06:51)
[2020-04-07] MEDS ORDERED: inSUlin ASPART (NovoLOG) 1 UNIT/0.01 ML (CHARGE PER UNIT) ONE (06:53)
[2020-04-07] MEDS ORDERED: fentaNYL INJECTION 100 MCG/2 ML AMP IV ONE (07:00)
[2020-04-07] MEDS ORDERED: inSUlin ASPART (NovoLOG) 1 UNIT/0.01 ML (CHARGE PER UNIT) IV ONE (07:00)
[2020-04-07] MEDS: LACTATED RINGERS 1,000 ML IV PRN ×2 (07:01→07:16)
--- NOTE | 2020-04-07 07:04 | Progress Note-Pre Operative ---
Pre-Operative Progress Note H&P Reviewed The H&P was reviewed, patient examined and no changes noted. Date Seen by Provider: Apr 07, 2020 Time Seen by Provider: 07:04 Date H&P Reviewed: Apr 07, 2020 Time H&P Reviewed: 07:04 Pre-Operative Diagnosis: RT DISTAL URETERAL AND RENAL STONES DENIZ NGO MD Apr 07, 2020 07:04
--- NOTE | 2020-04-07 07:09 | Progress Note-Post Operative ---
Post-Operative Progess Note Surgeon (s)/Store Promoter (s) Surgeon DENIZ NGO MD Store Promoter: NONE Pre-Operative Diagnosis RT DISTAL URETERAL AND RENAL STONES Post-Operative Diagnosis SAME Procedure & Operative Findings Date of Procedure 04/07/20 Procedure Performed/Findings RT URETEROSCOPY WITH STONE LITHOTRIPSY Anesthesia Type GENERAL Estimated Blood Loss Estimated blood loss (mL): NONE Specimens/Packing Specimens Removed NONE Packing: NONE DENIZ NGO MD Apr 07, 2020 07:08
--- NOTE | 2020-04-07 07:10 | Discharge Inst-Urology ---
Discharge Inst-Urology Reconcile Patient Problems Problems Reviewed?: Yes Final Diagnosis RT DISTAL URETERAL AND RENAL STONES Patient Instructions/Follow Up Plan/Assessment/Instructions Please make appointment to been seen in office in 3 weeks. Stop Toradol Increase oral fluids for 48 hours and then as needed. Diet and Activity as tolerated. If questions or concerns contact your physician Or seek help at emergency department. DENIZ NGO MD Apr 07, 2020 07:10
[2020-04-07] MEDS ORDERED: TMSL.4C PO (08:01)
[2020-04-07] MEDS ORDERED: NITR-65 PO (08:01)
[2020-04-07] MEDS ORDERED: TRM50T PO (08:01)
--- NOTE | 2020-04-07 08:12 | Diagnostic Imaging Report ---
Indication: Nephrolithiasis KUB 6:32 AM There are calculi projected over the inferior pole of the right kidney. There is a calcification left mid pelvis that may be a phlebolith. IMPRESSION: Right nephrolithiasis. Dictated by: Dictated on workstation # [id number]
--- NOTE | 2020-04-07 10:09 | OPERATIVE REPORT ---
DATE OF SERVICE: 04/07/2020 PREOPERATIVE DIAGNOSIS: Right distal ureteral stone and right renal stone. POSTOPERATIVE DIAGNOSIS: Right distal ureteral stone and right renal stone. OPERATION PERFORMED: Right ureteroscopy with stone lithotripsy. SURGEON: Antolin Ngo MD. ANESTHESIA: General. COMPLICATIONS: None. DESCRIPTION OF PROCEDURE: Under satisfactory general anesthesia, the patient in lithotomy position, genitalia were prepped and draped in the usual sterile fashion. Cystoscope was introduced under vision. The anterior urethra was normal. The prostate was nonobstructing, but there was a median bar. Bladder was entered and was essentially normal except for sluggish efflux on the right side. Using the foroblique lens, I dilated the right ureteral orifice intramural portion to accommodate a 6.9 Portuguese semi-rigid ureteroscope. I visualized the stone that was impacted. I was able to break it up completely first using a power of 5 and then 12, disimpacted it and completely fragmented the stone. I went beyond it to confirm no more fragments proximally. I removed the ureteroscope, reinserted the cystoscope, passed a 6-Portuguese ureteral catheter to make sure that no stones in the kidney or in the lower pole, not in the proximal ureter and in the kidney. I removed the ureteral catheter, emptied the bladder, and removed the cystoscope. The patient tolerated the procedure and anesthesia well and was sent to recovery room in stable condition. Job ID: [id number] DocumentID: [id number] Dictated Date: 04/07/2020 08:04:00 Veterinary Technician Instructor Date: 04/07/2020 10:08:59 Dictated By: ANTOLIN NGO MD
--- NOTE | 2020-04-07 10:45 | Anesthesia-General Post-Op ---
General Patient Condition Mental Status/LOC: Same as Preop Cardiovascular: Satisfactory Nausea/Vomiting: Absent Respiratory: Satisfactory Pain: Controlled Complications: Absent Post Op Complications Complications None Follow Up Care/Instructions Patient Instructions None needed. Anesthesia/Patient Condition Patient Condition Patient is doing well, no complaints, stable vital signs, no apparent adverse anesthesia problems. No complications reported per nursing. VIRGINIA MOREL CRNA Apr 07, 2020 10:45
== END 2020-04-07 09:35 | disposition home or self-care (01) ==
LOC: SDC 06:06
PROVIDERS: ATTEND Urology
DX: N20.2 Calculus of kidney with calculus of ureter (principal); I10 Essential (primary) hypertension; K21.9 Gastro-esophageal reflux disease without esophagitis; G43.909 Migraine, unspecified, not intractable, without status migrainosus; E11.9 Type 2 diabetes mellitus without complications; Z79.899 Other long term (current) drug therapy; Z88.5 Allergy status to narcotic agent
CPT/HCPCS: 74018; 76000; 82962; 87081

== ENCOUNTER → 2020-04-28 | Outpatient (CLI) | payer MEDICAID ==
--- NOTE | 2020-04-28 17:04 | Diagnostic Imaging Report ---
EXAMINATION: Abdomen 1 view. HISTORY: RT distal ureteral and renal stones post ESWL. COMPARISON: Abdominal radiograph 04/07/2020. FINDINGS: There is moderate amount of gas and stool throughout the colon. Nonobstructive bowel gas pattern. No radiopaque foreign body. The lung bases are clear. The osseous structures are intact. There is a 0.6 cm calculus overlying the inferior pole of the right kidney which is unchanged. IMPRESSION: Stable 0.6 cm calculus overlying the inferior pole of the right kidney. Dictated by: Dictated on workstation # [id number]
== END ==
LOC: RAD 13:41
PROVIDERS: ATTEND Urology
DX: N20.2 Calculus of kidney with calculus of ureter (principal)
CPT/HCPCS: 74018

== ENCOUNTER → 2020-04-30 | Outpatient (CLI) | payer MEDICARE, MEDICAID ==
--- NOTE | 2020-04-30 08:34 | Diagnostic Imaging Report ---
PROCEDURE: CT abdomen and pelvis without contrast. TECHNIQUE: Multiple contiguous axial images were obtained through the abdomen and pelvis without the use of intravenous contrast. Auto Exposure Controls were utilized during the CT exam to meet ALARA standards for radiation dose reduction. INDICATION: Right flank and right lower quadrant pain. History of nephrolithiasis. Compared with CT abdomen and pelvis 03/17/2020. FINDINGS: Intrarenal stone disease within the lower pole calyx of the right kidney and aggregate today measured 7 mm, previously 9.3 mm. Previous right ureteral stones at the level of its crossing of the iliac vessels has resolved. No radiopaque ureteral stone on follow-up and there has been resolution of the previous moderate degree of right-sided hydroureteronephrosis. The unopacified urinary bladder unremarkable. The left kidney unobstructed, nonfocal and nonacute. There is mild hepatic steatosis stable, mild splenomegaly nonfocal stable. The gallbladder and bile ducts unremarkable. The adrenals and pancreas negative. The aorta is nonaneurysmal. There is no ileus or bowel obstruction. There is no appendicitis or diverticulitis. No ascites, abscess, hematoma or acute fluid collection. There is no focal inflammatory process. The lung bases and the bony structures appeared nonacute. IMPRESSION: Favorable change, reduction in nonobstructing intrarenal stone burden in the right kidney, resolution of prior right ureteral stones and resolution of prior right hydroureteronephrosis. Dictated by: Dictated on workstation # [id number]
== END ==
LOC: RAD 07:45
PROVIDERS: ATTEND Urology
DX: N20.0 Calculus of kidney (principal)
CPT/HCPCS: 74176

== ENCOUNTER → 2020-05-04 | Outpatient (CLI) | payer MEDICARE, MEDICAID | END | disposition home or self-care (01) | LOC: PREOP 13:02 | PROVIDERS: ATTEND Urology | DX: Z01.818 Encounter for other preprocedural examination (principal) ==

== ENCOUNTER → 2020-05-04 | Outpatient (CLI) | payer MEDICARE, MEDICAID ==
--- NOTE | 2020-05-04 12:21 | Diagnostic Imaging Report ---
INDICATION: Follow-up calculi. COMPARISON: 04/30/2020 FINDINGS: Two supine radiographic views of the abdomen were obtained and again show extraosseous calcification projecting over the inferior pole of the right kidney. No other unexpected extraosseous calcifications or radiopaque foreign bodies are seen. Small bowel loops are nondistended. There is no large collection of free intraperitoneal air. Included portions of the lung bases are clear. Osseous structures show age-related degenerative changes. IMPRESSION: 1. Redemonstration of right renal calculus. 2. Nonobstructed small bowel gas pattern. Dictated by: Dictated on workstation # [id number]
== END ==
LOC: RAD 11:55
PROVIDERS: ATTEND Urology
DX: N20.1 Calculus of ureter (principal)
CPT/HCPCS: 74018

== ENCOUNTER 2020-05-19 07:04 | Day surgery (SDC) | payer MEDICARE, MEDICAID ==
[~2020-05-19] VITALS: Ht 175 cm; Wt 79.1 kg
[2020-05-19] VITALS (10 sets, daily range): BP systolic 126–180; BP diastolic 84–114
[2020-05-19] MEDS ORDERED: LACTATED RINGERS 1,000 ML IV PRN (07:15)
[2020-05-19] MEDS ORDERED: cefTRIAXone FOR IV USE 1,000 MG in WATER (STERILE) FOR INJECTION 10 ML IV ONE (07:15)
[2020-05-19] MEDS ORDERED: LIDOCAINE PF 2% 5 ML (XYLOCAINE) VIAL ONE (07:43)
[2020-05-19] MEDS ORDERED: MIDAZOLAM 2 MG/2 ML (VERSED) VIAL ONE (07:43)
[2020-05-19] MEDS ORDERED: proPOfol 200 MG/20 ML (DIPRIVAN) VIAL IV ONE (07:43)
[2020-05-19] MEDS ORDERED: ONDANSETRON 4 MG/2 ML (SDV) Z0FRAN ONE (07:43)
[2020-05-19] MEDS ORDERED: fentaNYL INJ 100 MCG/2 ML AMP ONE ×2 (07:44→09:41)
[2020-05-19] MEDS ORDERED: SEVOFLURANE (ULTANE) 15 ML INHAL SOLN ONE (07:46)
--- NOTE | 2020-05-19 08:23 | Progress Note-Pre Operative ---
Pre-Operative Progress Note H&P Reviewed The H&P was reviewed, patient examined and no changes noted. Date Seen by Provider: May 19, 2020 Time Seen by Provider: 08:23 Date H&P Reviewed: May 19, 2020 Time H&P Reviewed: 08:23 Pre-Operative Diagnosis: RT RENAL STONES DENIZ NGO MD May 19, 2020 08:23
--- NOTE | 2020-05-19 08:44 | Diagnostic Imaging Report ---
INDICATION: kidney stone. TECHNIQUE: Single supine view of the abdomen 7:34 AM CORRELATION STUDY: 05/04/2020 FINDINGS: Moderate amount of overlying bowel gas and stool does obscure detail. The previously noted small grouped area of calcification inferior pole right kidney is not well appreciated at follow-up. There is small calcification right hemipelvis superimposed on inferior lateral aspect of the sacrum. This may reflect overlapping summation shadows. Possibility of distal ureteral stone however would be difficult to exclude. No evidence for calcification along the course left ureter. IMPRESSION: 1. Previously noted calcification inferior pole right kidney is not well appreciated. Indeterminate whether this is obscured by overlying bowel gas. There is a question of a calcification of the right hemipelvis likely portions of the sacrum. Possibility of distal ureteral stone however is not excluded. Dictated by: Dictated on workstation # [id number]
[2020-05-19] MEDS ORDERED: PHENYLEPHRINE 100 MCG/ML 10 ML (ANESTHESIA) SYR ONE (08:45)
[2020-05-19] MEDS ORDERED: ONDANSETRON 4 MG/2 ML (SDV) Z0FRAN IVP PRN (09:15)
--- NOTE | 2020-05-19 09:35 | Anesthesia-General Post-Op ---
General Patient Condition Mental Status/LOC: Same as Preop Cardiovascular: Satisfactory Nausea/Vomiting: Absent Respiratory: Satisfactory Pain: Controlled Complications: Absent Post Op Complications Complications None Follow Up Care/Instructions Patient Instructions None needed. Anesthesia/Patient Condition Patient Condition Patient is doing well, no complaints, stable vital signs, no apparent adverse anesthesia problems. No complications reported per nursing. D/C home per [facility] [place] [facility] [place] Criteria: Yes TIN ANDERSON CRNA May 19, 2020 09:35
== END 2020-05-19 10:50 | disposition home or self-care (01) ==
LOC: SDC 07:04
PROVIDERS: ATTEND Urology
DX: N20.0 Calculus of kidney (principal); I25.10 Atherosclerotic heart disease of native coronary artery without angina pectoris; K21.9 Gastro-esophageal reflux disease without esophagitis; M19.90 Unspecified osteoarthritis, unspecified site; Z88.6 Allergy status to analgesic agent; Z88.8 Allergy status to other drugs, medicaments and biological substances; Z53.8 Procedure and treatment not carried out for other reasons
CPT/HCPCS: 74018; 82962; 87081

== ENCOUNTER 2020-05-27 06:08 | Day surgery (SDC) | payer MEDICARE, MEDICAID ==
[~2020-05-27] VITALS: Ht 175 cm; Wt 79.1 kg
[2020-05-27] VITALS (11 sets, daily range): BP systolic 154–188; BP diastolic 102–110
[2020-05-27] MEDS ORDERED: cefTRIAXone FOR IV USE 1,000 MG in WATER (STERILE) FOR INJECTION 10 ML IV ONE (06:30)
--- NOTE | 2020-05-27 06:30 | Diagnostic Imaging Report ---
INDICATION: Pre-ESWL. Right sided kidney stone. FINDINGS: Supine views of the abdomen shows the bowel gas pattern to be within normal limits. No urinary tract stone is evident on either side. There is no bony abnormality. There is no significant change from 05/19/2020. IMPRESSION: No acute abnormality is seen. Dictated by: Dictated on workstation # [id number]
[2020-05-27] MEDS ORDERED: fentaNYL INJ 100 MCG/2 ML AMP ONE (06:39)
[2020-05-27] MEDS ORDERED: proPOfol 200 MG/20 ML (DIPRIVAN) VIAL IV ONE (06:39)
[2020-05-27] MEDS ORDERED: MIDAZOLAM 2 MG/2 ML (VERSED) VIAL ONE (06:39)
[2020-05-27] MEDS ORDERED: ONDANSETRON 4 MG/2 ML (SDV) Z0FRAN ONE (06:39)
[2020-05-27] MEDS ORDERED: LIDOCAINE PF 2% 5 ML (XYLOCAINE) VIAL ONE (06:39)
[2020-05-27] MEDS ORDERED: SEVOFLURANE (ULTANE) 15 ML INHAL SOLN ONE (06:39)
[2020-05-27] MEDS: LACTATED RINGERS 1,000 ML IV PRN ×2 (06:50→09:18)
[2020-05-27] MEDS ORDERED: FUROSEMIDE 40 MG/4 ML INJ (LASIX) ONE (06:51)
[2020-05-27] MEDS ORDERED: KETOROLAC 30 MG/ML VIAL ONE (06:51)
[2020-05-27] MEDS ORDERED: inSUlin (REGULAR) HUMAN 1 UNIT/0.01 ML (CHARGE PER UNIT) ONE (06:55)
[2020-05-27] MEDS ORDERED: inSUlin (REGULAR) HUMAN 1 UNIT/0.01 ML (CHARGE PER UNIT) IV ONE (07:00)
--- NOTE | 2020-05-27 07:04 | Progress Note-Pre Operative ---
Pre-Operative Progress Note H&P Reviewed The H&P was reviewed, patient examined and no changes noted. Date Seen by Provider: May 27, 2020 Time Seen by Provider: 07:04 Date H&P Reviewed: May 27, 2020 Time H&P Reviewed: 07:04 Pre-Operative Diagnosis: RT RENAL STONE DENIZ NGO MD May 27, 2020 07:04
[2020-05-27] MEDS ORDERED: MEPERIDINE (DEMEROL) INJ 50 MG/ML IVP ONE (08:15)
[2020-05-27] MEDS ORDERED: fentaNYL INJ 100 MCG/2 ML AMP IVP ONE (08:15)
[2020-05-27] MEDS ORDERED: ONDANSETRON 4 MG/2 ML (SDV) Z0FRAN IVP PRN (08:15)
--- NOTE | 2020-05-27 08:25 | Progress Note-Post Operative ---
Post-Operative Progess Note Surgeon (s)/Advanced Practice Registered Nurse (s) Surgeon DENIZ NGO MD Advanced Practice Registered Nurse: NONE Pre-Operative Diagnosis RT RENAL STONE Post-Operative Diagnosis SAME Procedure & Operative Findings Date of Procedure 05/27/20 Procedure Performed/Findings RT ESWL Anesthesia Type GENERAL Estimated Blood Loss Estimated blood loss (mL): NONE Specimens/Packing Specimens Removed NONE Packing: NONE DENIZ NGO MD May 27, 2020 08:25
--- NOTE | 2020-05-27 08:27 | Discharge Inst-Urology ---
Discharge Inst-Urology Reconcile Patient Problems Problems Reviewed?: Yes Final Diagnosis RT RENAL STONE Patient Instructions/Follow Up Plan/Assessment/Instructions Please make appointment to been seen in office in 2 weeks. KUB prior to it KUB on way home Post ESWL instructions Increase oral fluids for 48 hours and then as needed. Diet and Activity as tolerated. If questions or concerns contact your physician Or seek help at emergency department. DENIZ NGO MD May 27, 2020 08:27
--- NOTE | 2020-05-27 09:35 | Anesthesia-General Post-Op ---
General Patient Condition Mental Status/LOC: Same as Preop Cardiovascular: Satisfactory Nausea/Vomiting: Absent Respiratory: Satisfactory Pain: Controlled Complications: Absent Post Op Complications Complications None Follow Up Care/Instructions Patient Instructions None needed. Anesthesia/Patient Condition Patient Condition Patient is doing well, no complaints, stable vital signs, no apparent adverse anesthesia problems. No complications reported per nursing. SUZANNA NEWTON CRNA May 27, 2020 09:35
[2020-05-27] MEDS ORDERED: TRM50T PO (09:56)
[2020-05-27] MEDS ORDERED: NITR-65 PO (09:56)
[2020-05-27] MEDS ORDERED: TMSL.4C PO (09:56)
--- NOTE | 2020-05-27 11:21 | Diagnostic Imaging Report ---
HISTORY: Post lithotripsy. COMPARISON: 05/27/2020. FINDINGS: A single frontal view of the abdomen demonstrates no bowel obstruction and no large collection of free air. Bowel gas overlies the kidneys and no definite calculi are seen radiographically. There are mild degenerative changes in the hips. IMPRESSION: No acute abnormality in the abdomen. Dictated by: Dictated on workstation # [id number]
--- NOTE | 2020-05-27 14:40 | OPERATIVE REPORT ---
DATE OF SERVICE: 05/27/2020 PREOPERATIVE DIAGNOSIS: Right renal stone. POSTOPERATIVE DIAGNOSIS: Right renal stone. OPERATION PERFORMED: Right ESWL. SURGEON: Antolin Ngo MD ANESTHESIA: General. COMPLICATIONS: None. DESCRIPTION OF PROCEDURE: Under satisfactory general anesthesia, the patient in supine position on the ESWL table, the right renal stone was localized. Shocks were delivered at kV of 6, a total of 2000 shocks completely fragmented the stone that was not visualized anymore. The patient received 40 mg of Lasix at the end of the procedure IV. He tolerated the procedure and anesthesia well and was sent to recovery room in stable condition. Job ID: [id number] DocumentID: [id number] Dictated Date: 05/27/2020 08:36:50 Milk Driver Date: 05/27/2020 14:39:05 Dictated By: ANTOLIN NGO MD
== END 2020-05-27 11:05 | disposition home or self-care (01) ==
LOC: SDC 06:08
PROVIDERS: ATTEND Urology
DX: N20.0 Calculus of kidney (principal); I10 Essential (primary) hypertension; E78.5 Hyperlipidemia, unspecified; G40.909 Epilepsy, unspecified, not intractable, without status epilepticus; K21.9 Gastro-esophageal reflux disease without esophagitis; E11.9 Type 2 diabetes mellitus without complications; Z88.8 Allergy status to other drugs, medicaments and biological substances; Z88.6 Allergy status to analgesic agent; Z88.5 Allergy status to narcotic agent; Z97.4 Presence of external hearing-aid; Z79.899 Other long term (current) drug therapy
CPT/HCPCS: 74018; 82962; 87081

== ENCOUNTER → 2020-06-10 | Outpatient (CLI) | payer MEDICARE, MEDICAID ==
--- NOTE | 2020-06-10 15:50 | Diagnostic Imaging Report ---
INDICATION: Status post ESWL. COMPARISON: 05/27/2020. EXAMINATION: Single frontal radiographic view of the abdomen was obtained. FINDINGS: Nondistended loops of small bowel. There is no large collection of free intraperitoneal air. No unexpected extraosseous calcification or radiopaque foreign body is seen. Osseous structures show no gross acute abnormality. IMPRESSION: Nonobstructed small bowel gas pattern. Dictated by: Dictated on workstation # [id number]
== END ==
LOC: RAD 14:35
PROVIDERS: ATTEND Urology
DX: N20.0 Calculus of kidney (principal); Z98.890 Other specified postprocedural states
CPT/HCPCS: 74018

== ENCOUNTER → 2021-01-11 | Outpatient (CLI) | payer MEDICARE, MEDICAID ==
--- NOTE | 2021-01-11 09:23 | Diagnostic Imaging Report ---
EXAMINATION: CT head without contrast. TECHNIQUE: Multiple contiguous axial images were obtained through the brain without the use of intravenous contrast. All CT scans use one or more of the following dose optimizing techniques: automated exposure control, MA and/or KvP adjustment based on patient size and exam type or iterative reconstruction. HISTORY: Memory loss. COMPARISON: None available. FINDINGS: No large acute territorial ischemia, mass, or hemorrhage. No midline shift or mass effect. The ventricles and cortical sulci are mildly prominent. The basilar cisterns are patent and unremarkable. Scleral banding is seen in the right globe. Paranasal sinuses are normal. Mastoid air cells are clear. No soft tissue abnormality is seen. No osseus lesions or fractures are seen. IMPRESSION: 1. No large acute territorial ischemia, mass, or hemorrhage. 2. Mild parenchymal volume loss. Dictated by: Dictated on workstation # [id number]
== END ==
LOC: RAD 08:53
PROVIDERS: ATTEND Internal Medicine
DX: G31.9 Degenerative disease of nervous system, unspecified (principal)
CPT/HCPCS: 70450

== ENCOUNTER 2021-01-26 20:09 | Emergency (ER) | payer MEDICARE, MEDICAID ==
[~2021-01-26] VITALS: Ht 170.2 cm; Wt 79.3 kg
[2021-01-26] MEDS ORDERED: RX-ALBUTEROL INHALER 8.5 GM HFA (PROAIR) IH STA (20:27)
[2021-01-26] MEDS ORDERED: NS IV 1000 ML 1,000 ML IV SCH ×2 (20:30→22:15)
--- NOTE | 2021-01-26 20:38 | ED General ---
General Chief Complaint: COVID19 Suspect/Confirmed Stated Complaint: COVID POSITIVE - WEAKNESS / HEADACHE / NOT EATING Nursing Triage Note: PT TO RM 10 BY WHEELCHAIR WITH COMPLAINT OF SOA, COUGH. TESTED POSITIVE FOR COVID LAST 03/21/20. (ASHTYN SANCHES) History of Present Illness Date Seen by Provider: Jan 26, 2021 Time Seen by Provider: 20:18 Initial Comments 60-year-old male presents for weakness, short of breath and cough. He was diagnosed with COVID on 01/21 or 01/22/2021 at [facility], his symptoms began that day. He was negative for Influenza. His tested positive on 01/20/21. He has received both vaccines in the summer of 2020. Dr. Carbajal is his PCP, there was discussion about monoclonial antibodies but no one called him to schedule. He reports drinking 6 bottles of water but not eating well, no appetite, denies n/v/d. He is not on an inhaler and can't take ASA due to ulcer. No history of chronic resp illnesses. Does not wear O2 or CPAP Timing/Duration: 4-5 Days Severity: Moderate Modifying Factors: improves with Rest Associated Systoms: No Chest Pain; Cough, Fever/Chills (yesterday, afebrile today); No Headaches; Loss of Appetite, Malaise; No Nausea/Vomiting, No Rash, No Seizure; Shortness of Air; No Syncope; Weakness (ASHTYN SANCHES) Allergies and Home Medications Allergies Coded Allergies: aspirin (Verified Allergy, Severe, HX STOMACHS ULCER, 07/09/19) ibuprofen (Verified Allergy, Intermediate, HX STOMACH ULCERS, 07/09/19) ketorolac (Verified Allergy, Intermediate, STOMACH PAIN/ULCERS, 04/07/20) morphine (Verified Allergy, Unknown, 07/09/19) Patient Home Medication List Home Medication List Reviewed: Yes (ASHTYN SANCHES) Azithromycin (Azithromycin) 250 Mg Tablet, 250 MG PO DAILY Prescribed by: ASHTYN SANCHES on 01/26/21 4427 Calcium Carbonate (Tums Ultra) 400 Mg Tab.chew, 400-800 MG PO PRN PRN for HEARTBURN, (Reported) Entered as Reported by: ALDO HAMMER on 12/23/19 1019 Cetirizine HCl (Zyrtec) 10 Mg Tablet, 10 MG PO DAILY, (Reported) Entered as Reported by: ALDO HAMMER on 12/23/19 1019 Dexamethasone (Decadron) 6 Mg Tablet, 6 MG PO DAILY Prescribed by: ASHTYN SANCHES on 01/26/218 Fluticasone Propionate (Flonase Allergy Relief) 9.9 Ml [place].susp, 2 SPRAY NS DAILY, (Reported) Entered as Reported by: ALDO HAMMER on 12/23/19 1019 Glimepiride (Glimepiride) 2 Mg Tablet, 2 MG PO BID, (Reported) Entered as Reported by: ROSSI CARDONA on 04/01/20 1308 Guaifen/Phenyleph/Acetaminophn (Tylenol Sinus Severe Caplet) 1 Each Tablet, 1-2 EACH PO Q6H PRN for CONGESTION, (Reported) Entered as Reported by: ALDO HAMMER on 12/23/19 1019 Insulin Detemir (Levemir Flextouch) 100 Unit/1 Ml Insuln.pen, 30 UNIT SQ HS, (Reported) Entered as Reported by: ROSSI CARDONA on 04/01/20 1412 Insulin Lispro (Insulin Lispro Kwikpen U-100) 100 Unit/1 Ml Insuln.pen, 0-15 UNITS SQ TIDAC PRN for sliding scale, (Reported) Entered as Reported by: ROSSI CARDONA on 04/01/20 1412 Lisinopril (Lisinopril) 40 Mg Tablet, 40 MG PO DAILY, (Reported) Entered as Reported by: ROSSI CARDONA on 04/01/20 1412 Metformin HCl (Metformin HCl) 1,000 Mg Tablet, 1,000 MG PO BID, (Reported) Entered as Reported by: ROBERT DENISE on 04/01/19 1140 Nitrofurantoin Monohyd/M-Cryst (Macrobid 100 mg Capsule) 100 Mg Capsule, 1 TAB PO BID Prescribed by: RENETTA CORTES on 05/27/20 0956 Tamsulosin HCl (Flomax) 0.4 Mg Cap, 0.4 MG PO DAILY Prescribed by: RENETTA CORTES on 05/27/20 0956 Tramadol HCl (Tramadol HCl) 50 Mg Tablet, 1-2 TAB PO Q4H PRN for PAIN-MODERATE (5-7) Prescribed by: RENETTA CORTES on 04/07/20 0801 Tramadol HCl (Tramadol HCl) 50 Mg Tablet, 1-2 MG PO Q4H PRN for PAIN-MODERATE (5-7) Prescribed by: RENETTA CORTES on 05/27/20 0956 Review of Systems Review of Systems Constitutional: see HPI, chills, malaise, weakness EENTM: see HPI, no symptoms reported Respiratory: see HPI, cough, dyspnea on exertion, phlegm, short of breath Cardiovascular: no symptoms reported, see HPI; No chest pain Gastrointestinal: see HPI; No abdominal pain, No constipation, No diarrhea; loss of appetite; No nausea, No vomiting Genitourinary: no symptoms reported, see HPI Musculoskeletal: no symptoms reported, see HPI Skin: no symptoms reported, see HPI (ASHTYN SANCHES) All Other Systems Reviewed Negative Unless Noted: Yes (ASHTYN SANCHES) Past Ltsagxn-Tjqexd-Rnyeln Hx Immunizations Up To Date PED Vaccines UTD: No (ASHTYN SANCHES) Seasonal Allergies Seasonal Allergies: Yes (ASHTYN SANCHES) Past Medical History Surgeries: Yes (HERNIA;PACEMAKER REMOVAL;CYSTOSCOPIES/LITHOTRIPSY/URETERAL STENTS) Abdominal, Orthopedic, Pacemaker, Renal Respiratory: No Currently Using CPAP: No Currently Using BIPAP: No Cardiac: Yes (PACEMAKER REMOVED) High Cholesterol, Hypertension, Irregular Heartbeat Neurological: Yes Headaches /Migraines Reproductive Disorders: No Sexually Transmitted Disease: No HIV/AIDS: No Genitourinary: Yes Kidney Stones Gastrointestinal: Yes Abdominal Hernia, Gastroesophageal Reflux, Chronic Diarrhea, Ulcer Musculoskeletal: Yes Degenerate Disk Disease, Arthritis, Chronic Back Pain Endocrine: Yes Diabetes, Insulin dep HEENT: Yes (GLASSES, BLIND IN RIGHT EYE, DENTURES) Loss of Vision: Right Hearing Impairment: Denies Cancer: No Psychosocial: No Integumentary: No Blood Disorders: No Adverse Reaction/Blood Tranf: No (N/A) (ASHTYN SANCHES) Family Medical History Reviewed Nursing Family Hx (ASHTYN SANCHES) Patient reports no known family medical history. No Pertinent Family Hx (ASHTYN SANCHES) Physical Exam Vital Signs Vital Signs - First Documented 01/26/21 20:18 Temp 36.7 Pulse 95 Resp 25 B/P (MAP) 135/80 (98) Pulse Ox 90 O2 Delivery Room Air (BRANDI,COLLEEN K DO) Vital Signs Capillary Refill : Less Than 3 Seconds (ASHTYN SANCHES) Height, Weight, BMI Height: 5'7.00" Weight: 187lbs. 0.5oz. 84.276808vw; 27.00 BMI Method:Stated General Appearance: WD/WN, Mild Distress Eyes: Bilateral Eye Normal Inspection, Bilateral Eye PERRL, Bilateral Eye EOMI HEENT: PERRL/EOMI, TMs Normal, Normal ENT Inspection Neck: Full Range of Motion, Normal Inspection, Non Tender, Supple Respiratory: Chest Non Tender, Lungs Clear, Decreased Breath Sounds Cardiovascular: Regular Rate, Rhythm, No Edema, No Murmur, Normal Peripheral Pulses Gastrointestinal: Normal Bowel Sounds, Non Tender, Soft Back: Normal Inspection, No CVA Tenderness Extremity: Normal Capillary Refill, Normal Inspection, Normal Range of Motion Neurologic/Psychiatric: Alert, Oriented x3, No Motor/Sensory Deficits, Normal Mood/Affect (ASHTYN SANCHES) Progress/Results/Core Measures Suspected Sepsis SIRS Temperature: Pulse: 95 Respiratory Rate: 25 Laboratory Tests 01/26/21 20:32: White Blood Count 8.1 Blood Pressure 135 /80 Mean: 98 Laboratory Tests 01/26/21 20:32: Creatinine 1.17, INR Comment 1.1, Platelet Count 293, Total Bilirubin 0.4 (ASHTYN SANCHES) Results/Orders Lab Results Laboratory Tests Test 01/26/21 20:32 Range/Units White Blood Count 8.1 4.3-11.0 10^3/uL Red Blood Count 4.25 L 4.30-5.52 10^6/uL Hemoglobin 12.0 L 13.3-17.7 g/dL Hematocrit 35 L 40-54 % Mean Corpuscular Volume 82 80-99 fL Mean Corpuscular Hemoglobin 28 25-34 pg Mean Corpuscular Hemoglobin Concent 34 32-36 g/dL Red Cell Distribution Width 14.6 H 10.0-14.5 % Platelet Count 293 130-400 10^3/uL Mean Platelet Volume 9.4 9.0-12.2 fL Immature Granulocyte % (Auto) 2 % Neutrophils (%) (Auto) 72 42-75 % Lymphocytes (%) (Auto) 14 12-44 % Monocytes (%) (Auto) 8 0-12 % Eosinophils (%) (Auto) 3 0-10 % Basophils (%) (Auto) 1 0-10 % Neutrophils # (Auto) 5.9 1.8-7.8 10^3/uL Lymphocytes # (Auto) 1.1 1.0-4.0 10^3/uL Monocytes # (Auto) 0.6 0.0-1.0 10^3/uL Eosinophils # (Auto) 0.3 0.0-0.3 10^3/uL Basophils # (Auto) 0.1 0.0-0.1 10^3/uL Immature Granulocyte # (Auto) 0.2 H 0.0-0.1 10^3/uL Erythrocyte Sedimentation Rate > 140 H 0-30 MM/HR Prothrombin Time 15.0 H 12.2-14.7 SEC INR Comment 1.1 0.8-1.4 Activated Partial Thromboplast Time 55 H 24-35 SEC D-Dimer 0.74 H 0.00-0.49 UG/ML Sodium Level 137 135-145 MMOL/L Potassium Level 3.3 L 3.6-5.0 MMOL/L Chloride Level 104 98-107 MMOL/L Carbon Dioxide Level 17 L 21-32 MMOL/L Anion Gap 16 H 5-14 MMOL/L Blood Urea Nitrogen 35 H 7-18 MG/DL Creatinine 1.17 0.60-1.30 MG/DL Estimat Glomerular Filtration Rate 63 BUN/Creatinine Ratio 30 Glucose Level 251 H 70-105 MG/DL Calcium Level 10.0 8.5-10.1 MG/DL Corrected Calcium 10.1 8.5-10.1 MG/DL Total Bilirubin 0.4 0.1-1.0 MG/DL Aspartate Amino Transf (AST/SGOT) 25 5-34 U/L Alanine Aminotransferase (ALT/SGPT) 20 0-55 U/L Alkaline Phosphatase 133 40-136 U/L Lactate Dehydrogenase 251 H 125-220 U/L C-Reactive Protein High Sensitivity 20.16 H 0.00-0.50 MG/DL Total Protein 8.1 6.4-8.2 GM/DL Albumin 3.9 3.2-4.5 GM/DL Procalcitonin 0.40 H <0.10 NG/ML (COLLEEN PAZ DO) Medications Given in ED Current Medications Medications Dose Ordered Sig/Melo Route Start Time Stop Time Status Last Admin Dose Admin Ceftriaxone Sodium/Dextrose 50 ml @ 100 mls/hr ONCE ONCE IV 01/26/21 22:45 01/26/21 23:03 DC 01/26/21 22:51 100 MLS/HR Iohexol 100 ml ONCE ONCE IV 01/26/21 21:45 01/26/21 21:46 DC 01/26/21 21:38 70 ML Sodium Chloride 100 ml ONCE ONCE IV 01/26/21 21:45 01/26/21 21:46 DC 01/26/21 21:38 80 ML (COLLEEN PAZ DO) Vital Signs/I&O 01/26/21 01/26/21 01/26/21 20:18 20:18 23:02 Temp 36.7 36.7 Pulse 95 89 Resp 25 20 B/P (MAP) 135/80 (98) 144/87 Pulse Ox 90 96 O2 Delivery Room Air Room Air Room Air 01/27/21 00:00 Intake Total 2050 ml Balance 2050 ml (COLLEEN PAZ DO) Vital Signs/I&O Capillary Refill : Less Than 3 Seconds (ASHTYN SANCHES) Blood Pressure Mean: 98 Progress Note : Time: 20:18 Progress Note Patient seen and evaluated, SaO2 95 to 97% on room air. No fever, tachycardia or hypotension to indicate sepsis work up. Will obtain labs, chest x-ray, Ventolin inhaler 2 puffs, normal saline 1 L per IV, and Decadron 6 mg IV 2100 elevated D-dimer, will obtain CT angio for PE. 2144 CT negative for PE, Covid pneumonia noted. patient reports significant improvement, SaO2 95-98% on RA. Lung sounds CTA bilat,improved. 2199 discussed Bamlanivimab/Etesevimab infusion, risk/benefits and alternatives with patient and , agreeable to receiving this. Patient understands this is under EUA. Discharging instructions and return precautions reviewed with the patient and spouse in detail. (ASHTYN SANCHES) Diagnostic Imaging Diagonstic Imaging: Xray Plain Films/CT/US/NM/MRI: chest Comments NAME: CAMPBELLANGELLA Clem [facility] REC#: [id number] PT STATUS: REG ER : 1960 PHYSICIAN: ASHTYN SANCHES ADMIT DATE: 01/26/21/ER Draft Date of Exam:01/26/21 CHEST 1 VIEW, AP/PA ONLY INDICATION: Cough Frontal chest obtained at 09:12 p.m. and compared to 12/21/2019. Heart is normal in size. Mediastinal silhouette is unremarkable. There is linear scarring or atelectasis in the left base. The lungs appear otherwise clear. There is no pneumothorax or pleural fluid. Pacemaker wires are unchanged. IMPRESSION: There is linear scarring or atelectasis in the left base. The lung sánchez are otherwise clear. No new abnormality is otherwise seen. Dictated on workstation # [id number] Dict: 01/26/212116 Trans: 01/26/212126 [facility] [id number] Interpreted by: GIANLUCA CORDERO MD Electronically signed by: Reviewed: Reviewed by Me Diagonstic Imaging: CT Plain Films/CT/US/NM/MRI: chest Comments NAME: ANGELLA HIGHTOWER Clem [facility] REC#: [id number] PT STATUS: REG ER : 1960 PHYSICIAN: ASHTYN SANCHES ADMIT DATE: 01/26/21/ER Draft Date of Exam:01/26/21 CT ANGIO CHEST W INDICATION: COVID positive patient, weakness and shortness of breath. TECHNIQUE: Multiple contiguous axial images were obtained through the chest after uneventful bolus administration of intravenous contrast. 3D reconstructed CTA MIP acquisitions were also performed. Auto Exposure Controls were utilized during the CT exam to meet ALARA standards for radiation dose reduction. COMPARISON: There is no prior CTA for comparison. The pulmonary parenchymal vessels are well-opacified with no CT evidence of pulmonary emboli. There is no evidence of aortic dissection or aneurysm. Great vessel origins are patent. There is no pleural or pericardial fluid. Visualized portions of the upper abdomen demonstrate splenomegaly with the spleen measuring 14.7 cm in length. Pacemaker device is in place. Lung parenchymal windows demonstrate incidental variant of an azygos lobe in the right upper lobe. There are groundglass and alveolar infiltrates in the lung bases on both sides of moderate severity. IMPRESSION: No CT evidence of pulmonary emboli or aortic dissection or aneurysm. Patchy groundglass infiltrates in both lung bases of moderate severity, compatible with pneumonia. There is no adenopathy or pleural fluid. Incidental note is made of splenomegaly. Dictated on workstation # [id number] Dict: 01/26/212135 Trans: 01/26/212140 [facility] [id number] Interpreted by: GIANLUCA CORDERO MD Electronically signed by: Reviewed: Reviewed by Me (ASHTYN SANCHES) Departure Impression Primary Impression: COVID-19 Additional Impressions: Weak Cough Pneumonia Qualified Codes: U07.1 - COVID-19; J12.82 - Pneumonia due to coronavirus disease 2018 T2DM (type 2 diabetes mellitus) Qualified Codes: E11.9 - Type 2 diabetes mellitus without complications; Z79.4 - alf (current) use of insulin Disposition: HOME, SELF-CARE Condition: Stable Departure-Patient Inst. Decision time for Depature: 22:00 (ASHTYN SANCHES) Referrals: [facility] [place] (PCP/Family) Primary Care Physician Patient Instructions: COVID-19 (DC), CT Scan With Contrast, General Add. Discharge Instructions: Hold Metformin for 3 days and increase water intake, since you received Contrast with the CT. Take Decadron as prescribed. This will elevate your blood sugar, monitor blood sugar at home and adjust your fast acting insulin. Call Dr. Carbajal for monoclonial antibody infusion date. Order sent by Emergency Dept, also. Use the inhaler, 2 puffs ever 4 hours. Walk in the house or outside, for 5-10 min every 2 hours, while awake. Take deep breaths and cough, 10 times every hour, while awake. Sleep on your stomach. Use Tylenol 650 mg every 6 hours for fever or pain. Take an immune vitamin with Zinc, Vit C and D. Return to the emergency department if symptoms are worsening, fever greater than 101 degrees not relieved by Tylenol, chest pain, worsening shortness of breath or new urgent healthcare needs. All discharge instructions reviewed with patient and/or family. Voiced understanding. Scripts Azithromycin (Azithromycin) 250 Mg Tablet 250 MG PO DAILY, #4 TAB 0 Refills Prov: ASHTYN SANCHES 01/26/21 Dexamethasone (Decadron) 6 Mg Tablet 6 MG PO DAILY, #10 TAB 0 Refills Prov: ASHTYN SANCHES 01/26/21 ATTENDING PHYSICIAN NOTE: I WAS PHYSICALLY PRESENT ER PHYSICIAN WHEN THIS PATIENT WAS IN ER, BUT I WAS NOT INVOLVED IN ANY DECISION MAKING OR ANY CARE OF THIS PATIENT. (COLLEEN PAZ DO) Copy Copies To 1: KAMAR CARBAJAL MD, AMY ARNP Jan 26, 2021 20:38 COLLEEN PAZ DO Jan 27, 2021 05:55
[2021-01-26 20:39] LABS: BASOPHILS # (AUTO) 0.1 10^3/uL (0.0-0.1); BASOPHILS % (AUTO) 1 % (0-10); EOSINOPHILS # (AUTO) 0.3 10^3/uL (0.0-0.3); EOSINOPHILS % (AUTO) 3 % (0-10); HEMATOCRIT 35 % (40-54); LYMPHOCYTES # (AUTO) 1.1 10^3/uL (1.0-4.0); LYMPHOCYTES % (AUTO) 14 % (12-44); MEAN CORPUSCULAR HEMOGLOBIN 28 pg (25-34); MEAN CORPUSCULAR HGB CONC 34 g/dL (32-36); MEAN CORPUSCULAR VOLUME 82 fL (80-99); MEAN PLATELET VOLUME 9.4 fL (9.0-12.2); MONOCYTES # (AUTO) 0.6 10^3/uL (0.0-1.0); MONOCYTES % (AUTO) 8 % (0-12); NEUTROPHILS # (AUTO) 5.9 10^3/uL (1.8-7.8); NEUTROPHILS % (AUTO) 72 % (42-75); PLATELET COUNT 293 10^3/uL (130-400); WHITE BLOOD COUNT 8.1 10^3/uL (4.3-11.0)
[2021-01-26 20:54] LABS: ALBUMIN 3.9 GM/DL (3.2-4.5)
[2021-01-26 20:55] LABS: POTASSIUM 3.3 MMOL/L (3.6-5.0)
[2021-01-26 20:57] LABS: TOTAL PROTEIN 8.1 GM/DL (6.4-8.2)
[2021-01-26 20:59] LABS: BILIRUBIN,TOTAL 0.4 MG/DL (0.1-1.0)
[2021-01-26 21:01] LABS: CREATININE SERUM 1.17 MG/DL (0.60-1.30)
[2021-01-26 21:08] LABS: ERYTHROCYTE SEDIMENTATION RATE > 140 MM/HR (0-30)
[2021-01-26] MEDS ORDERED: KCL 10 MEQ TAB (MICRO K) PO STA (21:12)
--- NOTE | 2021-01-26 21:28 | Diagnostic Imaging Report ---
INDICATION: Cough Frontal chest obtained at 09:12 p.m. and compared to 12/21/2019. Heart is normal in size. Mediastinal silhouette is unremarkable. There is linear scarring or atelectasis in the left base. The lungs appear otherwise clear. There is no pneumothorax or pleural fluid. Pacemaker wires are unchanged. IMPRESSION: There is linear scarring or atelectasis in the left base. The lung sánchez are otherwise clear. No new abnormality is otherwise seen. Dictated by: Dictated on workstation # [id number]
[2021-01-26 21:36] LABS: INR 1.1 (0.8-1.4)
--- NOTE | 2021-01-26 21:41 | Diagnostic Imaging Report ---
INDICATION: COVID positive patient, weakness and shortness of breath. TECHNIQUE: Multiple contiguous axial images were obtained through the chest after uneventful bolus administration of intravenous contrast. 3D reconstructed CTA MIP acquisitions were also performed. Auto Exposure Controls were utilized during the CT exam to meet ALARA standards for radiation dose reduction. COMPARISON: There is no prior CTA for comparison. The pulmonary parenchymal vessels are well-opacified with no CT evidence of pulmonary emboli. There is no evidence of aortic dissection or aneurysm. Great vessel origins are patent. There is no pleural or pericardial fluid. Visualized portions of the upper abdomen demonstrate splenomegaly with the spleen measuring 14.7 cm in length. Pacemaker device is in place. Lung parenchymal windows demonstrate incidental variant of an azygos lobe in the right upper lobe. There are groundglass and alveolar infiltrates in the lung bases on both sides of moderate severity. IMPRESSION: No CT evidence of pulmonary emboli or aortic dissection or aneurysm. Patchy groundglass infiltrates in both lung bases of moderate severity, compatible with pneumonia. There is no adenopathy or pleural fluid. Incidental note is made of splenomegaly. Dictated by: Dictated on workstation # [id number]
[2021-01-26] MEDS ORDERED: IOHEXOL 350 MG/ML 100 ML (OMNIPAQUE 350) VIAL IV ONE (21:45)
[2021-01-26] MEDS ORDERED: HOLD METFORMIN - RECEIVED CONTRAST 20 ML VIAL IV SCH (21:45)
[2021-01-26] MEDS ORDERED: NS 100 ML (IVPB) BAG IV ONE (21:45)
[2021-01-26] MEDS ORDERED: DEXA6TAB6 PO (22:38)
[2021-01-26] MEDS ORDERED: AZITHROMYCIN 250 MG TAB (ZITHROMAX) PO STA (22:40)
[2021-01-26] MEDS ORDERED: AZIT250T12 PO (22:43)
[2021-01-26] MEDS ORDERED: cefTRIAXone 1 GM PRE-MIX 50 ML IV ONE (22:45)
[2021-01-26 23:02] VITALS: BP 144/87
== END 2021-01-26 23:03 | disposition home or self-care (01) ==
LOC: EDUNIT# 20:09 → ER 20:12
DX: U07.1 COVID-19 (principal); J18.9 Pneumonia, unspecified organism; E11.9 Type 2 diabetes mellitus without complications; I10 Essential (primary) hypertension; G89.29 Other chronic pain; M54.9 Dorsalgia, unspecified; Z79.4 Long term (current) use of insulin; Z79.891 Long term (current) use of opiate analgesic; Z79.899 Other long term (current) drug therapy
CPT/HCPCS: 36415; 71045; 71275; 80053; 83615; 84145; 85025; 85379; 85610; 85652; 85730; 86141

== ENCOUNTER 2021-01-28 10:46 | Outpatient (CLI) | payer MEDICARE, MEDICAID ==
[~2021-01-28] VITALS: Ht 170.2 cm; Wt 79.5 kg
[2021-01-28 10:30] VITALS: BP 121/72
[~2021-01-28 10:46] MED LIST changes: +ACETAMINOPHEN 500 MG TAB (TYLENOL) PO PRN; +AZIT250T12 PO; +BAMLANIVIMAB 700 MG/ETESEVIMAB 1,400 MG IN NS IV ONE; +DEXA6TAB6 PO; +EPINEPHrine INJECTION 1 MG/ML AMP IM PRN; +ONDANSETRON 4 MG/2 ML (SDV) Z0FRAN IV PRN; +diphenhydrAMINE 50 MG/ML INJ (BENADRYL) IV PRN
[2021-01-28 11:36] VITALS: BP 141/78
== END 2021-01-28 11:41 | disposition home or self-care (01) ==
LOC: INFUSION 10:46
PROVIDERS: ATTEND Internal Medicine
DX: U07.1 COVID-19 (principal)

== ENCOUNTER 2021-07-28 11:37 | Emergency (ER) | payer MEDICARE, MEDICAID ==
[~2021-07-28] VITALS: Ht 172 cm; Wt 79.5 kg
[~2021-07-28 11:37] MED LIST changes: -ACETAMINOPHEN 500 MG TAB (TYLENOL) PO PRN; -BAMLANIVIMAB 700 MG/ETESEVIMAB 1,400 MG IN NS IV ONE; -DEXT1TAB3 PO; +DEXT1TAB5 PO; -EPINEPHrine INJECTION 1 MG/ML AMP IM PRN; -FENO134C PO; +FENO134C21 PO; -ONDANSETRON 4 MG/2 ML (SDV) Z0FRAN IV PRN; -diphenhydrAMINE 50 MG/ML INJ (BENADRYL) IV PRN
[2021-07-28] MEDS ORDERED: NS IV 1000 ML 1,000 ML IV STA (12:09)
--- NOTE | 2021-07-28 12:13 | ED General ---
General Chief Complaint: Glucose Problems Stated Complaint: HIGH BS 400+/HIGH BP/SORE THROAT/COUGH/CONGESTION Nursing Triage Note: WAS AT [facility] FOR ROUTINE VISIT AND STARTED TO FEEL DIZZY AND BECAME VERY SWEATY AND WEAK. Source of Information: Patient (HUNTER RICHARDS) History of Present Illness Date Seen by Provider: Jul 28, 2021 Time Seen by Provider: 12:12 Initial Comments This is a 60-year-old male with history of coronary artery disease, insulin- dependent diabetes, hypertension, hyperlipidemia, questionable dementia and decreased vision that presents to the emergency room for evaluation of high blood sugar and generalized malaise. He states that he has not felt well since this weekend. He states that he started having a cough and generalized malaise and then he started sweating uncontrollably. He states that he has a sensation of indigestion in his epigastric region. He went to the [facility] for routine evaluation today and they checked his blood sugar and it was greater than 400. The patient tells me that he did take his insulin this morning but he has not taken his noon dose yet. Timing/Duration: 3-4 Days Severity: Severe Associated Systoms: Cough, Diaphoresis, Fever/Chills (HUNTER RICHARDS) Allergies and Home Medications Allergies Coded Allergies: aspirin (Verified Allergy, Severe, HX STOMACHS ULCER, 07/09/19) ibuprofen (Verified Allergy, Intermediate, HX STOMACH ULCERS, 07/09/19) ketorolac (Verified Allergy, Intermediate, STOMACH PAIN/ULCERS, 04/07/20) morphine (Verified Allergy, Unknown, 07/09/19) Patient Home Medication List Home Medication List Reviewed: Yes (HUNTER RICHARDS) Azithromycin (Azithromycin) 250 Mg Tablet, 250 MG PO DAILY Prescribed by: ASHTYN SANCHES on 01/26/21 2243 Calcium Carbonate (Tums Ultra) 400 Mg Tab.chew, 400-800 MG PO PRN PRN for HEARTBURN, (Reported) Entered as Reported by: ALDO HAMMER on 12/23/19 1019 Cetirizine HCl (Zyrtec) 10 Mg Tablet, 10 MG PO DAILY, (Reported) Entered as Reported by: ALDO HAMMER on 12/23/19 1019 Dexamethasone (Decadron) 6 Mg Tablet, 6 MG PO DAILY Prescribed by: ASHTYN SANCHES on 01/26/21 2238 Fluticasone Propionate (Flonase Allergy Relief) 9.9 Ml [place].susp, 2 SPRAY NS DAILY, (Reported) Entered as Reported by: ALDO HAMMER on 12/23/19 1019 Glimepiride (Glimepiride) 2 Mg Tablet, 2 MG PO BID, (Reported) Entered as Reported by: ROSSI CARDONA on 04/01/20 1308 Guaifen/Phenyleph/Acetaminophn (Tylenol Sinus Severe Caplet) 1 Each Tablet, 1-2 EACH PO Q6H PRN for CONGESTION, (Reported) Entered as Reported by: ALDO HAMMER on 12/23/19 1019 Insulin Detemir (Levemir Flextouch) 100 Unit/1 Ml Insuln.pen, 30 UNIT SQ HS, (Reported) Entered as Reported by: ROSSI CARDONA on 04/01/20 1412 Insulin Lispro (Insulin Lispro Kwikpen U-100) 100 Unit/1 Ml Insuln.pen, 0-15 UNITS SQ TIDAC PRN for sliding scale, (Reported) Entered as Reported by: ROSSI CARDONA on 04/01/20 1412 Lisinopril (Lisinopril) 40 Mg Tablet, 40 MG PO DAILY, (Reported) Entered as Reported by: ROSSI CARDONA on 04/01/20 1412 Metformin HCl (Metformin HCl) 1,000 Mg Tablet, 1,000 MG PO BID, (Reported) Entered as Reported by: ROBERT DENISE on 04/01/19 1140 Nitrofurantoin Monohyd/M-Cryst (Macrobid 100 mg Capsule) 100 Mg Capsule, 1 TAB PO BID Prescribed by: RENETTA CORTES on 05/27/20 0956 Tamsulosin HCl (Flomax) 0.4 Mg Cap, 0.4 MG PO DAILY Prescribed by: RENETTA CORTES on 05/27/20 0956 Tramadol HCl (Tramadol HCl) 50 Mg Tablet, 1-2 TAB PO Q4H PRN for PAIN-MODERATE (5-7) Prescribed by: RENETTA CORTES on 04/07/20 0801 Tramadol HCl (Tramadol HCl) 50 Mg Tablet, 1-2 MG PO Q4H PRN for PAIN-MODERATE (5-7) Prescribed by: RENETTA CORTES on 05/27/20 0956 Review of Systems Review of Systems Constitutional: chills, malaise EENTM: nose congestion Respiratory: cough Cardiovascular: chest pain Genitourinary: no symptoms reported Musculoskeletal: muscle pain Skin: no symptoms reported Hematologic/Lymphatic: No Symptoms Reported Immunological/Allergic: no symptoms reported (HUNTER RICHARDS) Past Idkwnuh-Yvezfu-Agsyky Hx Patient Social History Tobacco Use?: No Use of E-Cig and/or Vaping dev: No Substance use?: No Alcohol Use?: No Pt feels they are or have been: No (HUNTER RICHARDS) Immunizations Up To Date PED Vaccines UTD: No First/Initial COVID19 Vaccinat: SPRING 2020 Second COVID19 Vaccination Gavin: SPRING 2020 COVID19 Vaccine [employer]: [employer] (HUNTER RICHARDS) Seasonal Allergies Seasonal Allergies: Yes (HUNTER RICHARDS) Past Medical History Surgeries: Yes (HERNIA;PACEMAKER REMOVAL;CYSTOSCOPIES/LITHOTRIPSY/URETERAL STENTS) Abdominal, Orthopedic, Pacemaker, Renal Respiratory: No Currently Using CPAP: No Currently Using BIPAP: No Cardiac: Yes (PACEMAKER REMOVED) High Cholesterol, Hypertension, Irregular Heartbeat Neurological: Yes Headaches /Migraines Reproductive Disorders: No Sexually Transmitted Disease: No HIV/AIDS: No Genitourinary: Yes Kidney Stones Gastrointestinal: Yes Abdominal Hernia, Gastroesophageal Reflux, Chronic Diarrhea, Ulcer Musculoskeletal: Yes Degenerate Disk Disease, Arthritis, Chronic Back Pain Endocrine: Yes Diabetes, Insulin dep HEENT: Yes (GLASSES, BLIND IN RIGHT EYE, DENTURES) Loss of Vision: Right Hearing Impairment: Denies Cancer: No Psychosocial: No Integumentary: No Blood Disorders: No Adverse Reaction/Blood Tranf: No (N/A) (HUNTER RICHARDS) Family Medical History Patient reports no known family medical history. No Pertinent Family Hx (HUNTER RICHARDS) Physical Exam Vital Signs Vital Signs - First Documented 07/28/21 07/28/21 11:48 14:49 Temp 35.8 Pulse 111 Resp 20 B/P (MAP) 179/125 (143) Pulse Ox 98 O2 Delivery Room Air (ARMANDO TONG MD) Vital Signs Capillary Refill : (HUNTER RICHARDS) Height, Weight, BMI Height: 5'7.00" Weight: 187lbs. 0.5oz. 84.201839ps; 26.00 BMI Method:Stated General Appearance: WD/WN Eyes: Bilateral Eye Normal Inspection HEENT: PERRL/EOMI, TMs Normal, Pharynx Normal Neck: Full Range of Motion Respiratory: Chest Non Tender, Lungs Clear Cardiovascular: Tachycardia Gastrointestinal: Normal Bowel Sounds Back: Normal Inspection, No CVA Tenderness Extremity: Normal Inspection Neurologic/Psychiatric: Alert, Oriented x3 Skin: Normal Color Lymphatic: No Adenopathy (HUNTER RICHARDS) Progress/Results/Core Measures Suspected Sepsis SIRS Temperature: Pulse: 111 Respiratory Rate: 20 Laboratory Tests 07/28/21 11:55: White Blood Count 10.5 Blood Pressure 179 /125 Mean: 143 Laboratory Tests 07/28/21 11:55: Creatinine 1.60H, Platelet Count 215, Total Bilirubin 0.7 (HUNTER RICHARDS) Results/Orders Lab Results Laboratory Tests Test 07/28/21 11:55 07/28/21 12:38 07/28/21 12:43 07/28/21 14:28 Range/Units White Blood Count 10.5 4.3-11.0 10^3/uL Red Blood Count 5.12 4.30-5.52 10^6/uL Hemoglobin 13.0 L 13.3-17.7 g/dL Hematocrit 39 L 40-54 % Mean Corpuscular Volume 77 L 80-99 fL Mean Corpuscular Hemoglobin 25 25-34 pg Mean Corpuscular Hemoglobin Concent 33 32-36 g/dL Red Cell Distribution Width 18.1 H 10.0-14.5 % Platelet Count 215 130-400 10^3/uL Mean Platelet Volume 10.2 9.0-12.2 fL Immature Granulocyte % (Auto) 1 % Neutrophils (%) (Auto) 65 42-75 % Lymphocytes (%) (Auto) 23 12-44 % Monocytes (%) (Auto) 8 0-12 % Eosinophils (%) (Auto) 3 0-10 % Basophils (%) (Auto) 1 0-10 % Neutrophils # (Auto) 6.9 1.8-7.8 10^3/uL Lymphocytes # (Auto) 2.4 1.0-4.0 10^3/uL Monocytes # (Auto) 0.8 0.0-1.0 10^3/uL Eosinophils # (Auto) 0.3 0.0-0.3 10^3/uL Basophils # (Auto) 0.1 0.0-0.1 10^3/uL Immature Granulocyte # (Auto) 0.1 0.0-0.1 10^3/uL Sodium Level 136 135-145 MMOL/L Potassium Level 4.1 3.6-5.0 MMOL/L Chloride Level 99 98-107 MMOL/L Carbon Dioxide Level 21 21-32 MMOL/L Anion Gap 16 H 5-14 MMOL/L Blood Urea Nitrogen 19 H 7-18 MG/DL Creatinine 1.60 H 0.60-1.30 MG/DL Estimat Glomerular Filtration Rate 48 BUN/Creatinine Ratio 12 Glucose Level 447 *H 70-105 MG/DL Glucometer 444 *H 295 H 70-110 MG/DL Calcium Level 9.5 8.5-10.1 MG/DL Corrected Calcium 8.5-10.1 MG/DL Total Bilirubin 0.7 0.1-1.0 MG/DL Aspartate Amino Transf (AST/SGOT) 20 5-34 U/L Alanine Aminotransferase (ALT/SGPT) 25 0-55 U/L Alkaline Phosphatase 125 40-136 U/L Troponin I < 0.028 <0.028 NG/ML Total Protein 8.1 6.4-8.2 GM/DL Albumin 4.9 H 3.2-4.5 GM/DL Beta-Hydroxybutyrate (Chem panel) 0.50 H 0.00-0.27 MMOL/L Influenza Type A (RT-PCR) Not Detected Not Detecte Influenza Type B (RT-PCR) Not Detected Not Detecte SARS-CoV-2 RNA (RT-PCR) Not Detected Not Detecte Urine Color YELLOW Urine Clarity CLEAR Urine pH 5.5 5-9 Urine Specific [place] 1.010 L 1.016-1.022 Urine Protein 2+ H NEGATIVE Urine Glucose (UA) 3+ H NEGATIVE Urine Ketones NEGATIVE NEGATIVE Urine Nitrite NEGATIVE NEGATIVE Urine Bilirubin NEGATIVE NEGATIVE Urine Urobilinogen 0.2 < = 1.0 MG/DL Urine Leukocyte Esterase NEGATIVE NEGATIVE Urine RBC (Auto) TRACE-I H NEGATIVE Urine RBC 2-5 H /HPF Urine WBC 2-5 /HPF Urine Crystals NONE /LPF Urine Bacteria TRACE /HPF Urine Casts NONE /LPF Urine Mucus NEGATIVE /LPF Urine Yeast MODERATE H /HPF Urine Culture Indicated YES (ARMANDO TONG MD) Micro Results Microbiology 07/28/21 Urine Culture - Final, Complete Gram Pos Mixed Bacterial Angelika YEAST (ARMANDO TONG MD) Vital Signs/I&O 07/28/21 07/28/21 11:48 14:49 Temp 35.8 Pulse 111 106 Resp 20 18 B/P (MAP) 179/125 (143) 164/108 Pulse Ox 98 97 O2 Delivery Room Air 07/29/21 00:00 Intake Total 2000 ml Balance 2000 ml (ARMANDO TONG MD) Vital Signs/I&O Capillary Refill : (HUNTER RICHARDS) Blood Pressure Mean: 143 Departure Communication (PCP) I spoke to Dr. Craig about admission due to the hyperglycemia, hypertension, elevated creatinine and serum ketones and she would like us to give the patient another liter of normal saline, 30 units of Levemir and have him double his NovoLog dosing at home. She does not feel that admission is warranted at this time. (HUNTER RICHARDS) Impression Primary Impression: Hyperglycemia Additional Impressions: Acute kidney failure HTN (hypertension) Disposition: 01 HOME, SELF-CARE Condition: Improved Departure-Patient Inst. Referrals: KAMAR CARBAJAL MD (PCP/Family) Primary Care Physician Patient Instructions: Acute Kidney Injury, High Blood Sugar, Adult Add. Discharge Instructions: Please increase her NovoLog dosing to 10 units 3 times a day from 5 units 3 times a day. Follow-up with your primary care doctor tomorrow for close reevaluation and reassessment. Return to the emergency room with any severe changes or worsening of your symptoms. All discharge instructions reviewed with patient and/or family. Voiced understanding. ATTENDING PHYSICIAN NOTE: I was physically present as attending physician in the emergency department during the care of this patient, but I was not directly involved in the decision making or delivery of care for this patient. (ARMANDO TONG MD) HUNTER RICHARDS Jul 28, 2021 12:13 ARMANDO TONG MD Jul 29, 2021 21:23
[2021-07-28 12:19] LABS: BASOPHILS # (AUTO) 0.1 10^3/uL (0.0-0.1); BASOPHILS % (AUTO) 1 % (0-10); EOSINOPHILS # (AUTO) 0.3 10^3/uL (0.0-0.3); EOSINOPHILS % (AUTO) 3 % (0-10); HEMATOCRIT 39 % (40-54); LYMPHOCYTES # (AUTO) 2.4 10^3/uL (1.0-4.0); LYMPHOCYTES % (AUTO) 23 % (12-44); MEAN CORPUSCULAR HEMOGLOBIN 25 pg (25-34); MEAN CORPUSCULAR HGB CONC 33 g/dL (32-36); MEAN CORPUSCULAR VOLUME 77 fL (80-99); MEAN PLATELET VOLUME 10.2 fL (9.0-12.2); MONOCYTES # (AUTO) 0.8 10^3/uL (0.0-1.0); MONOCYTES % (AUTO) 8 % (0-12); NEUTROPHILS # (AUTO) 6.9 10^3/uL (1.8-7.8); NEUTROPHILS % (AUTO) 65 % (42-75); PLATELET COUNT 215 10^3/uL (130-400); WHITE BLOOD COUNT 10.5 10^3/uL (4.3-11.0)
[2021-07-28 12:35] LABS: ALBUMIN 4.9 GM/DL (3.2-4.5)
[2021-07-28 12:36] LABS: CHLORIDE 99 MMOL/L (98-107); POTASSIUM 4.1 MMOL/L (3.6-5.0); SODIUM 136 MMOL/L (135-145)
[2021-07-28 12:37] LABS: CALCIUM 9.5 MG/DL (8.5-10.1)
[2021-07-28 12:38] LABS: TOTAL PROTEIN 8.1 GM/DL (6.4-8.2)
[2021-07-28 12:39] LABS: CARBON DIOXIDE 21 MMOL/L (21-32)
[2021-07-28 12:40] LABS: BILIRUBIN,TOTAL 0.7 MG/DL (0.1-1.0)
[2021-07-28 12:41] LABS: ALKALINE PHOSPHATASE 125 U/L (40-136)
[2021-07-28 12:42] LABS: GFR ESTIMATED 48
[2021-07-28 12:43] LABS: BUN/CREATININE RATIO 12
[2021-07-28 12:44] LABS: ALANINE AMINOTRANSFERASE 25 U/L (0-55)
[2021-07-28 12:50] LABS: BILIRUBIN,URINE NEGATIVE (NEGATIVE); CLARITY,URINE CLEAR; COLOR,URINE YELLOW; GLUCOSE, URINE (UA) 3+ (NEGATIVE); KETONES,URINE NEGATIVE (NEGATIVE); LEUKOCYTE ESTERASE ,URINE NEGATIVE (NEGATIVE); NITRITE,URINE NEGATIVE (NEGATIVE); PH,URINE 5.5 (5-9); PROTEIN,URINE 2+ (NEGATIVE)
[2021-07-28 13:00] LABS: BACTERIA,URINE TRACE /HPF
[2021-07-28 13:01] LABS: YEAST,URINE MODERATE /HPF
[2021-07-28 13:01] LABS: GLUCOSE 447 MG/DL (70-105)
[2021-07-28] MEDS ORDERED: inSUlin (REGULAR) HUMAN 1 UNIT/0.01 ML (CHARGE PER UNIT) SC ONE (13:15)
[2021-07-28] MEDS ORDERED: NS IV 1000 ML 1,000 ML IV SCH (13:30)
[2021-07-28 14:49] VITALS: BP 164/108
== END 2021-07-28 14:55 | disposition home or self-care (01) ==
LOC: EDUNIT# 11:37 → ER 11:41
DX: E11.65 Type 2 diabetes mellitus with hyperglycemia (principal); N17.9 Acute kidney failure, unspecified; I10 Essential (primary) hypertension; Z79.4 Long term (current) use of insulin; Z20.822 Contact with and (suspected) exposure to COVID-19
CPT/HCPCS: 36415; 80053; 81000; 82010; 82947; 84484; 85025; 87088; 87636; 93005

== ENCOUNTER 2022-12-05 13:47 | Emergency (ER) | payer MEDICARE, MEDICAID ==
[~2022-12-05] VITALS: Ht 170.1 cm; Wt 80.7 kg
[~2022-12-05 13:47] MED LIST changes: -INSU100I29 SQ; +INSU100I30 SQ; -INSU100I48 SQ; +INSU100I64 SQ
[2022-12-05] MEDS ORDERED: NS IV 1000 ML 1,000 ML IV STA (14:09)
--- NOTE | 2022-12-05 14:09 | ED General ---
General Chief Complaint: General Problems/Pain Stated Complaint: UNABLE TO URINATE/WEAKNESS/DIZZY Nursing Triage Note: PT AMB TO [facility] WITH CC OF WEAKNESS, [place], DIZZINESS, AND DIFFICULTY URINATING. PT STATES THAT SYMPTOMS STARTED 2 WEEKS AGO. History of Present Illness Date Seen by Provider: Dec 05, 2022 Time Seen by Provider: 14:08 Initial Comments 62-year-old male presents with some generalized weakness, complaining of some dizziness, headache and difficulty urinating. Reports that the symptoms been going on for at least 2 weeks. He was seen by his primary care provider or urgent care but is not very clear on what was done. Patient presents today for repeat evaluation. Patient very poor historian. Allergies and Home Medications Allergies Coded Allergies: aspirin (Verified Allergy, Severe, HX STOMACHS ULCER, 07/09/19) ibuprofen (Verified Allergy, Intermediate, HX STOMACH ULCERS, 07/09/19) ketorolac (Verified Allergy, Intermediate, STOMACH PAIN/ULCERS, 04/07/20) morphine (Verified Allergy, Unknown, 07/09/19) Patient Home Medication List Home Medication List Reviewed: Yes Azithromycin (Azithromycin) 250 Mg Tablet, 250 MG PO DAILY Prescribed by: ASHTYN SANCHES on 01/26/21 2243 Calcium Carbonate (Tums Ultra) 400 Mg Tab.chew, 400-800 MG PO PRN PRN for HEARTBURN, (Reported) Entered as Reported by: ALDO HAMMER on 12/23/19 1019 Cetirizine HCl (Zyrtec) 10 Mg Tablet, 10 MG PO DAILY, (Reported) Entered as Reported by: ALDO HAMMER on 12/23/19 1019 Dexamethasone (Decadron) 6 Mg Tablet, 6 MG PO DAILY Prescribed by: ASHTYN SANCHES on 01/26/21 2238 Fluticasone Propionate (Flonase Allergy Relief) 9.9 Ml [place].susp, 2 SPRAY NS DAILY, (Reported) Entered as Reported by: ALDO HAMMER on 12/23/19 1019 Glimepiride (Glimepiride) 2 Mg Tablet, 2 MG PO BID, (Reported) Entered as Reported by: ROSSI CARDONA on 04/01/20 1308 Guaifen/Phenyleph/Acetaminophn (Tylenol Sinus Severe Caplet) 1 Each Tablet, 1-2 EACH PO Q6H PRN for CONGESTION, (Reported) Entered as Reported by: ALDO HAMMER on 12/23/19 1019 Insulin Detemir (Levemir Flextouch) 100 Unit/1 Ml Insuln.pen, 30 UNIT SQ HS, (Reported) Entered as Reported by: ROSSI CARDONA on 04/01/20 1412 Insulin Lispro (Insulin Lispro Kwikpen U-100) 100 Unit/1 Ml Insuln.pen, 0-15 UNITS SQ TIDAC PRN for sliding scale, (Reported) Entered as Reported by: ROSSI CARDONA on 04/01/20 1412 Lisinopril (Lisinopril) 40 Mg Tablet, 40 MG PO DAILY, (Reported) Entered as Reported by: ROSSI CARDONA on 04/01/20 1412 Metformin HCl (Metformin HCl) 1,000 Mg Tablet, 1,000 MG PO BID, (Reported) Entered as Reported by: ROBERT DENISE on 04/01/19 1140 Nitrofurantoin Monohyd/M-Cryst (Macrobid 100 mg Capsule) 100 Mg Capsule, 1 TAB PO BID Prescribed by: RENETTA CORTES on 05/27/20 0956 Tamsulosin HCl (Flomax) 0.4 Mg Cap, 0.4 MG PO DAILY Prescribed by: RENETTA CORTES on 05/27/20 0956 Tramadol HCl (Tramadol HCl) 50 Mg Tablet, 1-2 TAB PO Q4H PRN for PAIN-MODERATE (5-7) Prescribed by: RENETTA CORTES on 04/07/20 0801 Tramadol HCl (Tramadol HCl) 50 Mg Tablet, 1-2 MG PO Q4H PRN for PAIN-MODERATE (5-7) Prescribed by: RENETTA CORTES on 05/27/20 0956 Review of Systems Review of Systems Constitutional: No chills; dizziness; No fever; weakness EENTM: no symptoms reported Respiratory: No cough Cardiovascular: No chest pain Gastrointestinal: No abdominal pain, No nausea, No vomiting Genitourinary: see HPI Musculoskeletal: no symptoms reported Skin: no symptoms reported Psychiatric/Neurological: See HPI Past Knbtjyk-Jxczyw-Kbspgr Hx Patient Social History Tobacco Use?: No Substance use?: No Alcohol Use?: No Immunizations Up To Date PED Vaccines UTD: No First/Initial COVID19 Vaccinat: 06/23/20 Second COVID19 Vaccination Gavin: 07/21/20 Third COVID19 Vaccination Date: 06/23/20 Seasonal Allergies Seasonal Allergies: Yes Past Medical History Surgery/Hospitalization HX: type 2 DM, ULCERS Surgeries: Yes (HERNIA;PACEMAKER REMOVAL;CYSTOSCOPIES/LITHOTRIPSY/URETERAL STENTS) Abdominal, Orthopedic, Pacemaker, Renal Respiratory: No Currently Using CPAP: No Currently Using BIPAP: No Cardiac: Yes (PACEMAKER REMOVED) High Cholesterol, Hypertension, Irregular Heartbeat Neurological: Yes Headaches /Migraines Reproductive Disorders: No Sexually Transmitted Disease: No HIV/AIDS: No Genitourinary: Yes Kidney Stones Gastrointestinal: Yes Abdominal Hernia, Gastroesophageal Reflux, Chronic Diarrhea, Ulcer Musculoskeletal: Yes Degenerate Disk Disease, Arthritis, Chronic Back Pain Endocrine: Yes Diabetes, Insulin dep HEENT: Yes (GLASSES, BLIND IN RIGHT EYE, DENTURES) Loss of Vision: Right Hearing Impairment: Denies Cancer: No Psychosocial: No Integumentary: No Blood Disorders: No Adverse Reaction/Blood Tranf: No (N/A) Family Medical History Patient reports no known family medical history. No Pertinent Family Hx Physical Exam Vital Signs Vital Signs - First Documented 12/05/22 14:01 Temp 36.9 Pulse 99 B/P (MAP) 130/80 (97) Pulse Ox 97 O2 Delivery Room Air Capillary Refill : Height, Weight, BMI Height: 5'7.00" Weight: 187lbs. 0.5oz. 84.367302me; 27.00 BMI Method:Stated General Appearance: No Apparent Distress, WD/WN Respiratory: Chest Non Tender, Lungs Clear Cardiovascular: Regular Rate, Rhythm, No Gallop Extremity: Normal Capillary Refill, Normal Range of Motion Neurologic/Psychiatric: Alert, No Motor/Sensory Deficits, Normal Mood/Affect Progress/Results/Core Measures Suspected Sepsis SIRS Temperature: Pulse: 99 Respiratory Rate: Laboratory Tests 12/05/22 14:14: White Blood Count 10.7 Blood Pressure 130 /80 Mean: 97 Laboratory Tests 12/05/22 14:14: Creatinine 2.38H, Platelet Count 160, Total Bilirubin 0.3 Results/Orders Lab Results Laboratory Tests Test 12/05/22 14:00 12/05/22 14:14 Range/Units Urine Color YELLOW Urine Clarity CLEAR Urine pH 5.0 5-9 Urine Specific [place] 1.020 1.016-1.022 Urine Protein 2+ H NEGATIVE Urine Glucose (UA) TRACE H NEGATIVE Urine Ketones NEGATIVE NEGATIVE Urine Nitrite NEGATIVE NEGATIVE Urine Bilirubin NEGATIVE NEGATIVE Urine Urobilinogen 0.2 < = 1.0 MG/DL Urine Leukocyte Esterase 1+ H NEGATIVE Urine RBC (Auto) TRACE H NEGATIVE Urine RBC 0-2 /HPF Urine WBC 25-50 H /HPF Urine Squamous Epithelial Cells 2-5 /HPF Urine Crystals NONE /LPF Urine Bacteria FEW H /HPF Urine Casts PRESENT /LPF Urine Hyaline Casts 0-2 H /LPF Urine Mucus NEGATIVE /LPF Urine Yeast LARGE H /HPF Urine Culture Indicated YES White Blood Count 10.7 4.3-11.0 10^3/uL Red Blood Count 4.70 4.30-5.52 10^6/uL Hemoglobin 11.6 L 13.3-17.7 g/dL Hematocrit 38 L 40-54 % Mean Corpuscular Volume 82 80-99 fL Mean Corpuscular Hemoglobin 25 25-34 pg Mean Corpuscular Hemoglobin Concent 30 L 32-36 g/dL Red Cell Distribution Width 17.3 H 10.0-14.5 % Platelet Count 160 130-400 10^3/uL Mean Platelet Volume 10.1 9.0-12.2 fL Immature Granulocyte % (Auto) 0 % Neutrophils (%) (Auto) 71 42-75 % Lymphocytes (%) (Auto) 18 12-44 % Monocytes (%) (Auto) 6 0-12 % Eosinophils (%) (Auto) 4 0-10 % Basophils (%) (Auto) 1 0-10 % Neutrophils # (Auto) 7.6 1.8-7.8 10^3/uL Lymphocytes # (Auto) 1.9 1.0-4.0 10^3/uL Monocytes # (Auto) 0.7 0.0-1.0 10^3/uL Eosinophils # (Auto) 0.4 H 0.0-0.3 10^3/uL Basophils # (Auto) 0.1 0.0-0.1 10^3/uL Immature Granulocyte # (Auto) 0.0 0.0-0.1 10^3/uL Sodium Level 138 135-145 MMOL/L Potassium Level 4.9 3.6-5.0 MMOL/L Chloride Level 117 H 98-107 MMOL/L Carbon Dioxide Level 12 L 21-32 MMOL/L Anion Gap 9 5-14 MMOL/L Blood Urea Nitrogen 51 H 7-18 MG/DL Creatinine 2.38 H 0.60-1.30 MG/DL Estimat Glomerular Filtration Rate 30 BUN/Creatinine Ratio 21 Glucose Level 72 70-105 MG/DL Calcium Level 8.7 8.5-10.1 MG/DL Corrected Calcium 8.5-10.1 MG/DL Magnesium Level 2.0 1.6-2.4 MG/DL Total Bilirubin 0.3 0.1-1.0 MG/DL Aspartate Amino Transf (AST/SGOT) 29 5-34 U/L Alanine Aminotransferase (ALT/SGPT) 38 0-55 U/L Alkaline Phosphatase 131 40-136 U/L Total Protein 7.4 6.4-8.2 GM/DL Albumin 4.6 H 3.2-4.5 GM/DL My Orders Orders - ANTHONY,JOSE L DO Cbc And Automated Diff (12/05/22 14:09) Comprehensive Metabolic Panel (12/05/22 14:09) Magnesium (12/05/22 14:09) Ua Culture If Indicated (12/05/22 14:09) Ns Iv 1000 Ml (Ns Iv 1000 Ml) (12/05/22 14:09) Urine Culture (12/05/22 14:00) Vital Signs/I&O 12/05/22 14:01 Temp 36.9 Pulse 99 B/P (MAP) 130/80 (97) Pulse Ox 97 O2 Delivery Room Air Capillary Refill : Blood Pressure Mean: 97 Progress Note : Progress Note Patient's diagnostic studies were ordered reviewed and interpreted by me. Patient's labs are consistent with a urinary tract infection and likely some mil d dehydration with some acute on chronic kidney disease. Patient's urine also was positive for candidiasis. Patient reports he has a history and a prior diagnosis of candiduria. This is likely colonization. We will initially just treat him for a urinary tract infection with Keflex. Patient to follow-up with his primary care provider towards in the week for recheck. Patient has been diagnosed with candiduria by urologist and reports that he has had this for quite a while. Patient is stable and discharged home. Departure Impression Primary Impression: Candiduria Additional Impressions: UTI (urinary tract infection) Qualified Codes: N30.01 - Acute cystitis with hematuria Mild dehydration Disposition: HOME, SELF-CARE Condition: Stable Departure-Patient Inst. Referrals: [facility] (PCP/Family) Primary Care Physician Patient Instructions: Urinary Tract Infection, Adult ED Add. Discharge Instructions: Drink plenty of fluids. Follow-up with your primary care provider at the end of the week around or Monday for recheck of your symptoms All discharge instructions reviewed with patient and/or family. Voiced understanding. Scripts Cephalexin (Cephalexin) 500 Mg Tablet 500 MG PO QID, #20 TAB 0 Refills Prov: JOSE ANTHONY DO 12/05/22 JOSE ANTHONY DO Dec 05, 2022 14:09
[2022-12-05 14:22] LABS: BASOPHILS # (AUTO) 0.1 10^3/uL (0.0-0.1); BASOPHILS % (AUTO) 1 % (0-10); EOSINOPHILS # (AUTO) 0.4 10^3/uL (0.0-0.3); EOSINOPHILS % (AUTO) 4 % (0-10); HEMATOCRIT 38 % (40-54); HEMOGLOBIN 11.6 g/dL (13.3-17.7); LYMPHOCYTES # (AUTO) 1.9 10^3/uL (1.0-4.0); LYMPHOCYTES % (AUTO) 18 % (12-44); MEAN CORPUSCULAR HEMOGLOBIN 25 pg (25-34); MEAN CORPUSCULAR HGB CONC 30 g/dL (32-36); MEAN CORPUSCULAR VOLUME 82 fL (80-99); MEAN PLATELET VOLUME 10.1 fL (9.0-12.2); MONOCYTES # (AUTO) 0.7 10^3/uL (0.0-1.0); MONOCYTES % (AUTO) 6 % (0-12); NEUTROPHILS # (AUTO) 7.6 10^3/uL (1.8-7.8); NEUTROPHILS % (AUTO) 71 % (42-75); PLATELET COUNT 160 10^3/uL (130-400); WHITE BLOOD COUNT 10.7 10^3/uL (4.3-11.0)
[2022-12-05 14:24] LABS: BACTERIA,URINE FEW /HPF; BILIRUBIN,URINE NEGATIVE (NEGATIVE); CLARITY,URINE CLEAR; COLOR,URINE YELLOW; GLUCOSE, URINE (UA) TRACE (NEGATIVE); HYALINE CASTS, URINE 0-2 /LPF; KETONES,URINE NEGATIVE (NEGATIVE); LEUKOCYTE ESTERASE ,URINE 1+ (NEGATIVE); NITRITE,URINE NEGATIVE (NEGATIVE); PROTEIN,URINE 2+ (NEGATIVE); RBC,URINE 0-2 /HPF; WBC,URINE 25-50 /HPF; YEAST,URINE LARGE /HPF
[2022-12-05 14:33] LABS: ALBUMIN 4.6 GM/DL (3.2-4.5); CHLORIDE 117 MMOL/L (98-107); POTASSIUM 4.9 MMOL/L (3.6-5.0); SODIUM 138 MMOL/L (135-145)
[2022-12-05 14:34] LABS: CALCIUM 8.7 MG/DL (8.5-10.1)
[2022-12-05 14:35] LABS: GLUCOSE 72 MG/DL (70-105); TOTAL PROTEIN 7.4 GM/DL (6.4-8.2)
[2022-12-05 14:36] LABS: CARBON DIOXIDE 12 MMOL/L (21-32)
[2022-12-05 14:37] LABS: BILIRUBIN,TOTAL 0.3 MG/DL (0.1-1.0)
[2022-12-05 14:38] LABS: ALKALINE PHOSPHATASE 131 U/L (40-136)
[2022-12-05 14:39] LABS: CREATININE SERUM 2.38 MG/DL (0.60-1.30); GFR ESTIMATED 30
[2022-12-05 14:40] LABS: BUN/CREATININE RATIO 21
[2022-12-05 14:42] LABS: ALANINE AMINOTRANSFERASE 38 U/L (0-55)
[2022-12-05] MEDS ORDERED: CEPH500T PO (14:57)
[2022-12-05 15:46] VITALS: BP 112/67
== END 2022-12-05 15:48 | disposition home or self-care (01) ==
LOC: EDUNIT# 13:47 → ER 13:50
DX: B37.49 Other urogenital candidiasis (principal); E86.0 Dehydration; N17.9 Acute kidney failure, unspecified; I12.9 Hypertensive chronic kidney disease with stage 1 through stage 4 chronic kidney disease, or unspecified chronic kidney disease; E11.22 Type 2 diabetes mellitus with diabetic chronic kidney disease; N18.9 Chronic kidney disease, unspecified; Z79.4 Long term (current) use of insulin
CPT/HCPCS: 36415; 80053; 81000; 83735; 85025; 87088; 96360